=== PATIENT | female | born 1965 | race African-American/Black ===

== ENCOUNTER 2017-02-07 23:50 | Emergency (ER) | payer MEDICARE, OTHER ==
[2017-02-07 23:57] VITALS: RESP 18
--- NOTE | 2017-02-08 01:04 | ED ---
General Adult HPI - General Chief complaint: Dental/Oral Stated complaint: Post Dental Tzhl-Vuebunnz-Yjxystdb PT Time Seen by Provider: 02/08/17 00:37 Source: patient, RN notes reviewed Mode of arrival: ambulatory Limitations: no limitations - History of Present Illness Initial comments: Patient is a 51-year-old female since emergency room for evaluation of dental bleeding. Patient states that she had multiple teeth extracted on Sunday. Patient states that she has not stopped bleeding since. Patient states that she has been on Coumadin since 2004 since she has a defibrillator placed. Patient states that they did not check her INR levels before extracting her teeth. Patient states she had her INR level checked on Sunday and it was 5.5. Patient states she was advised to discontinue the Coumadin until Sunday when they recheck her INR. Patient states she still continuing to bleed. Patient states when she got here the bleeding has slightly subsided. Patient also states that her tongue has turned to green/black color over the past few days. Patient denies any pain in her tongue. Patient has headache, dizziness. Patient denies chest pain shortness of breath. Patient denies fevers, chills, weakness. - Related Data Home Medications Medication Instructions Recorded Confirmed Pravastatin Sodium [Pravachol] 40 mg PO HS 03/25/15 02/07/17 Aspirin EC [Ecotrin] 81 mg PO DAILY 06/27/16 02/07/17 Carvedilol 25 mg PO BID 06/27/16 02/07/17 Isosorbide Dinitrate 30 mg PO DAILY 06/27/16 02/07/17 Loratadine [Claritin] 10 mg PO DAILY 06/27/16 02/07/17 Previous Rx's Medication Instructions Recorded Furosemide [Lasix] 20 mg PO DAILY #30 tab 03/27/15 Lisinopril 40 mg PO DAILY #30 tablet 03/27/15 Spironolactone [Aldactone] 25 mg PO DAILY #30 tab 03/27/15 hydrALAZINE HCL [Apresoline] 25 mg PO BID #60 tab 03/27/15 Warfarin [Coumadin] 10 mg PO DAILY #0 06/30/16 Hydrocodone/Acetaminophen [Valliant 1 each PO Q6HR PRN #20 tab 10/15/16 5-325] Orphenadrine [Norflex] 100 mg PO Q12H #7 tablet.er 10/15/16 predniSONE 20 mg PO BID #10 tab 10/15/16 Allergies Allergy/AdvReac Type Severity Reaction Status Date / Time Penicillins Allergy Anaphylaxis Verified 10/14/16 21:34 shellfish derived [Shellfish] Allergy Anaphylaxis Verified 10/14/16 21:34 Review of Systems ROS Statement: Those systems with pertinent positive or pertinent negative responses have been documented in the HPI. ROS Other: All systems not noted in ROS Statement are negative. Past Medical History Past Medical History: Coronary Artery Disease (CAD), Chest Pain / Angina, Heart Failure, Hyperlipidemia Additional Past Medical History / Comment(s): Recent UTI, nonischemic cardiomyopathy, anemia in past. History of Any Multi-Drug Resistant Organisms: None Reported Past Surgical History: AICD, Cholecystectomy, Pacemaker, Tubal Ligation Additional Past Surgical History / Comment(s): 2006 AICD at [facility], 31/03 mitral valve repair and St. Pb aortic valve replaced Past Anesthesia/Blood Transfusion Reactions: No Reported Reaction Additional Past Anesthesia/Blood Transfusion Reaction / Comment(s): Pt has received blood in past without reaction. Type of Cardiac Device: AICD Device Placement Date:: 2006 Past Psychological History: No Psychological Hx Reported Additional Psychological History / Comment(s): Pt resides with significant other. She does not drive-her significant other takes her to appts. Smoking Status: Former smoker Past Alcohol Use History: None Reported Additional Past Alcohol Use History / Comment(s): Pt started smoking in 1990 and quit 5 1/2 months ago. Past Drug Use History: None Reported - Past Family History Father Family Medical History: Myocardial Infarction ([place]) Additional Family Medical History / Comment(s): Father of a [place] at the age of 60yrs. Mother Family Medical History: CVA/TIA, Seizure Disorder Additional Family Medical History / Comment(s): Mother had a CVA and seizures- had a trach and was comatose for 3 yrs before she . General Exam - General Exam Comments Initial Comments: Sitting in exam room, no acute distress. Limitations: no limitations General appearance: alert, in no apparent distress Head exam: Present: atraumatic, normocephalic, normal inspection Eye exam: Present: normal appearance Expanded Teeth exam: Present: other (Multiple teeth extracted in left upper dental area. Mild bleeding.) Throat exam: normal inspection Neck exam: Present: normal inspection Respiratory exam: Present: normal lung sounds bilaterally. Absent: respiratory distress Cardiovascular Exam: Present: regular rate, normal rhythm, normal heart sounds Extremities exam: Present: normal inspection Back exam: Present: normal inspection Neurological exam: Present: alert, oriented X3, CN II-XII intact, normal gait Psychiatric exam: Present: normal affect, normal mood Skin exam: Present: warm, dry, intact, normal color. Absent: rash Course Vital Signs 02/07/17 02/08/17 02/08/17 23:53 03:14 04:12 Temperature 97.4 F L 98.2 F Pulse Rate 89 81 74 Respiratory 18 18 18 Rate Blood Pressure 106/79 106/70 107/63 O2 Sat by Pulse 98 100 97 Oximetry Medical Decision Making - Medical Decision Making Patient is a 51-year-old female presents to emergency room for evaluation of bleeding from mouth post multiple tooth extractions. Patient's INR today is 5.1. Case discussed with Dr. Lainez who also evaluated patient. Patient given tranexemic acid. Advised patient to follow-up with her primary care provider tomorrow. Patient's bleeding has subsided after gargling with cold water and applying pressure with gauze. Advised patient to return for any worsening symptoms. Patient states she understands everything that was discussed with her. - Lab Data Result diagrams: 02/08/17 01:05 Lab Results 02/08/17 02/08/17 02/08/17 Range/Units 01:05 01:05 02:48 WBC 11.4 H (3.8-10.6) k/uL RBC 4.03 (3.80-5.40) m/uL Hgb 11.4 (11.4-16.0) gm/dL Hct 34.9 (34.0-46.0) % MCV 86.6 (80.0-100.0) fL MCH 28.2 (25.0-35.0) pg MCHC 32.6 (31.0-37.0) g/dL RDW 14.4 (11.5-15.5) % Plt Count 263 (150-450) k/uL Neutrophils % 73 % Lymphocytes % 17 % Monocytes % 5 % Eosinophils % 1 % Basophils % 0 % Neutrophils # 8.4 H (1.3-7.7) k/uL Lymphocytes # 2.0 (1.0-4.8) k/uL Monocytes # 0.6 (0-1.0) k/uL Eosinophils # 0.1 (0-0.7) k/uL Basophils # 0.0 (0-0.2) k/uL PT 50.9 H (9.0-12.0) sec INR 5.1 H* (<1.1) POC Glucose (mg/dL) 95 (75-99) mg/dL POC Glu E [employer] Retailer ID Michelle Min A Disposition Clinical Impression: Postoperative bleeding from mouth, Elevated INR Disposition: HOME SELF-CARE Condition: Good Instructions: Postoperative Bleeding (ED), Elevated INR (ED) Additional Instructions: Gargle with ice cold water. Apply pressure with gauze to affected areas. Please follow up with primary care provider for repeat INR . If any new symptom arises or symptoms worsen, return to ER as soon as possible. Referrals: Lita Olmedo MD [Primary Care Provider] - 1-2 days Time of Disposition: 03:46
[2017-02-08 01:23] LABS: Basophils % (A) 0 %; CH 28.7; CHCM 33.3; Eosinophils # (A) 0.1 k/uL (0-0.7); Eosinophils % (A) 1 %; HCT 34.9 % (34.0-46.0); HDW 2.48; HGB 11.4 gm/dL (11.4-16.0); Luc # (Auto) 0.37; Luc % (Auto) 3; Lymphocytes % (A) 17 %; MCH 28.2 pg (25.0-35.0); MCHC 32.6 g/dL (31.0-37.0); MCV 86.6 fL (80.0-100.0); Mean Platelet Volume 8.1; Monocytes # (A) 0.6 k/uL (0-1.0); Monocytes % (A) 5 %; Neutrophils # (A) 8.4 k/uL (1.3-7.7); Neutrophils % (A) 73 %; RBC 4.03 m/uL (3.80-5.40); RDW 14.4 % (11.5-15.5); WBC 11.4 k/uL (3.8-10.6); WBC (Perox) 12.42
[2017-02-08 01:39] LABS: Prothrombin Time 50.9 sec (9.0-12.0)
[2017-02-08 01:42] LABS: INR 5.1 (<1.1)
[2017-02-08] MEDS ORDERED: TRANEXAMIC ACID 1,000 MG in SODIUM CHLORIDE 0.9% 100 ML IVPB ONE (02:24)
[2017-02-08 02:59] LABS: Glucose,Whole Blood 95 mg/dL (75-99)
[2017-02-08 04:13] VITALS: BP 107/63; PULSE 74; TEMP 98.2
== END 2017-02-08 04:13 | disposition home or self-care (01) ==
LOC: EC 23:50
DX: K91.840 Postprocedural hemorrhage of a digestive system organ or structure following a digestive system procedure (principal); R79.1 Abnormal coagulation profile; I25.10 Atherosclerotic heart disease of native coronary artery without angina pectoris; I42.9 Cardiomyopathy, unspecified; I50.9 Heart failure, unspecified; Z87.891 Personal history of nicotine dependence; Z95.810 Presence of automatic (implantable) cardiac defibrillator; Z95.828 Presence of other vascular implants and grafts; Z88.0 Allergy status to penicillin; Z91.013 Allergy to seafood; Z79.82 Long term (current) use of aspirin; Z79.899 Other long term (current) drug therapy; Z79.01 Long term (current) use of anticoagulants; Z79.52 Long term (current) use of systemic steroids; E78.5 Hyperlipidemia, unspecified; Z82.49 Family history of ischemic heart disease and other diseases of the circulatory system
CPT/HCPCS: 36415; 85025; 85610; 87070; 87205; 96365; 99283

== ENCOUNTER → 2017-04-06 | Outpatient (CLI) | payer MEDICARE ==
[2017-04-06 12:47] LABS: Anion Gap 10 mmol/L; Blood Urea Nitrogen 11 mg/dL (7-17); Calcium 9.4 mg/dL (8.4-10.2); Carbon Dioxide 22 mmol/L (22-30); Chloride 110 mmol/L (98-107); Glucose 99 mg/dL (74-99); Non-African American GFR(MDRD) >60 (>60 ml/min/1.73 sqM); Potassium 4.4 mmol/L (3.5-5.1); Sodium 142 mmol/L (137-145)
== END | disposition home or self-care (01) ==
LOC: LABWHC1 10:31
PROVIDERS: ATTEND Internal Medicine Cardiovascular Disease
DX: I50.9 Heart failure, unspecified (principal)
CPT/HCPCS: 36415; 80048; 83880

== ENCOUNTER 2017-05-01 19:00 | Observation (INO) | payer MEDICARE, OTHER ==
[2017-05-01 19:20] LABS: Glucose,Whole Blood 92 mg/dL (75-99)
[2017-05-01] MEDS ORDERED: NITROGLYCERIN OINT 1 INCH/GM PACKET TOPICAL STA (19:21)
[2017-05-01] MEDS ORDERED: ASPIRIN 81 MG CHEW PO STA (19:21)
[2017-05-01] MEDS ORDERED: SODIUM CHLORIDE 0.9% 1,000 ML IV ONE (19:21)
--- NOTE | 2017-05-01 19:26 | ED ---
General Adult HPI - General Chief complaint: Chest Pain Stated complaint: Dizziness Time Seen by Provider: 05/01/17 19:00 Source: patient, RN notes reviewed Mode of arrival: wheelchair Limitations: no limitations - History of Present Illness Initial comments: This is a 51-year-old female with past medical history significant for valve replacement and defibrillator placement. Patient also states she has had a heart attack in the past. She also states she is hypertensive. Patient comes in today because she started feeling lightheaded and thought she might fall over. Patient stated she also has some swelling to her legs which is been ongoing all day and she was concerned. Patient states she did not have any shortness of breath or difficulty breathing. Patient denies any recent fever chills or cough. Patient states she also had some chest pain earlier in the day in the left side of her chest. The pain did not radiate anywhere. Patient denies any recent abdominal pain. But she does state last evening she was vomiting a few times. Patient denies headache patient denies any numbness weakness. - Related Data Home Medications Medication Instructions Recorded Confirmed Pravastatin Sodium [Pravachol] 40 mg PO HS 03/25/15 05/01/17 Aspirin EC [Ecotrin] 81 mg PO DAILY 06/27/16 05/01/17 Carvedilol 25 mg PO BID 06/27/16 05/01/17 Isosorbide Dinitrate 30 mg PO DAILY 06/27/16 05/01/17 Loratadine [Claritin] 10 mg PO DAILY 06/27/16 05/01/17 Warfarin [Coumadin] 10 mg PO [id number] 05/01/17 05/01/17 Warfarin [Coumadin] 15 mg PO REAZO 05/01/17 05/01/17 Previous Rx's Medication Instructions Recorded Furosemide [Lasix] 20 mg PO DAILY #30 tab 03/27/15 Lisinopril 40 mg PO DAILY #30 tablet 03/27/15 Spironolactone [Aldactone] 25 mg PO DAILY #30 tab 03/27/15 hydrALAZINE HCL [Apresoline] 25 mg PO BID #60 tab 03/27/15 Allergies Allergy/AdvReac Type Severity Reaction Status Date / Time Penicillins Allergy Anaphylaxis Verified 05/01/17 19:33 shellfish derived [Shellfish] Allergy Anaphylaxis Verified 05/01/17 19:33 Review of Systems ROS Statement: Those systems with pertinent positive or pertinent negative responses have been documented in the HPI. ROS Other: All systems not noted in ROS Statement are negative. Past Medical History Past Medical History: Coronary Artery Disease (CAD), Chest Pain / Angina, Heart Failure, Hyperlipidemia Additional Past Medical History / Comment(s): Recent UTI, nonischemic cardiomyopathy, anemia in past. History of Any Multi-Drug Resistant Organisms: None Reported Past Surgical History: AICD, Cholecystectomy, Pacemaker, Tubal Ligation Additional Past Surgical History / Comment(s): 2006 AICD at [facility], 31/03 mitral valve repair and St. Pb aortic valve replaced Past Anesthesia/Blood Transfusion Reactions: No Reported Reaction Additional Past Anesthesia/Blood Transfusion Reaction / Comment(s): Pt has received blood in past without reaction. Type of Cardiac Device: AICD Device Placement Date:: 2006 Past Psychological History: No Psychological Hx Reported Additional Psychological History / Comment(s): Pt resides with significant other. She does not drive-her significant other takes her to appts. Smoking Status: Former smoker Past Alcohol Use History: None Reported Additional Past Alcohol Use History / Comment(s): Pt started smoking in 1990 and quit 5 1/2 months ago. Past Drug Use History: None Reported - Past Family History Father Family Medical History: Myocardial Infarction ([place]) Additional Family Medical History / Comment(s): Father of a [place] at the age of 60yrs. Mother Family Medical History: CVA/TIA, Seizure Disorder Additional Family Medical History / Comment(s): Mother had a CVA and seizures- had a trach and was comatose for 3 yrs before she . General Exam - General Exam Comments Initial Comments: GENERAL: Patient is well-developed and well-nourished. Patient is nontoxic and well- hydrated and is in no acute distress. ENT: Neck is soft and supple. No significant lymphadenopathy is noted. Oropharynx is clear. Moist mucous membranes. Neck has full range of motion without eliciting any pain. EYES: The sclera were anicteric and conjunctiva were pink and moist. Extraocular movements were intact and pupils were equal round and reactive to light. Eyelids were unremarkable. PULMONARY: Unlabored respirations. Good breath sounds bilaterally. No audible rales rhonchi or wheezing was noted. CARDIOVASCULAR: There is a regular rate and rhythm without any murmurs gallops or rubs. ABDOMEN: Soft and nontender with normal bowel sounds. No palpable organomegaly was noted. There is no palpable pulsatile mass. SKIN: Skin is clear with no lesions or rashes and otherwise unremarkable. NEUROLOGIC: Patient is alert and oriented x3. Cranial nerves II through XII are grossly intact. Motor and sensory are also intact. Normal speech, volume and content. Symmetrical smile. MUSCULOSKELETAL: Normal extremities with adequate strength and full range of motion. No lower extremity swelling or edema. No calf tenderness. LYMPHATICS: No significant lymphadenopathy is noted PSYCHIATRIC: Normal psychiatric evaluation. Normal interpersonal interactions appears functionally intact in deals appropriately with others. No signs of depression. No signs of anxiety. Limitations: no limitations Course Vital Signs 05/01/17 05/01/17 05/01/17 19:04 19:20 19:57 Temperature 98.5 F Pulse Rate 76 73 Pulse Rate [ 70 Sitting] Pulse Rate [ 82 Standing] Pulse Rate [ 68 Supine] Respiratory 18 18 Rate Blood Pressure 121/74 115/76 Blood Pressure 103/65 [Sitting] Blood Pressure 106/74 [Standing] Blood Pressure 117/70 [Supine] O2 Sat by Pulse 98 99 Oximetry 05/01/17 20:02 Temperature Pulse Rate 71 Pulse Rate [ Sitting] Pulse Rate [ Standing] Pulse Rate [ Supine] Respiratory 18 Rate Blood Pressure 106/67 Blood Pressure [Sitting] Blood Pressure [Standing] Blood Pressure [Supine] O2 Sat by Pulse 98 Oximetry Medical Decision Making - Medical Decision Making EKG shows sinus rhythm with occasional PVCs and PACs. The rate is 77 bpm DC interval is 150 QRS is 122 QT interval is 410 QTC is 463. Patient's EKG shows no ST segment elevation or depression. Patient has a left bundle branch block. Chest x-ray shows no acute abnormality. Patient was not having any chest pain throughout the course of her ED stay - Lab Data Result diagrams: 05/01/17 19:25 05/01/17 19:25 Lab Results 05/01/17 05/01/17 05/01/17 Range/Units :17 19:25 19:25 WBC 7.9 (3.8-10.6) k/uL RBC 4.19 (3.80-5.40) m/uL Hgb 11.7 (11.4-16.0) gm/dL Hct 36.4 (34.0-46.0) % MCV 86.9 (80.0-100.0) fL MCH 27.9 (25.0-35.0) pg MCHC 32.1 (31.0-37.0) g/dL RDW 14.7 (11.5-15.5) % Plt Count 229 (150-450) k/uL Neutrophils % 65 % Lymphocytes % 24 % Monocytes % 6 % Eosinophils % 2 % Basophils % 0 % Neutrophils # 5.1 (1.3-7.7) k/uL Lymphocytes # 1.9 (1.0-4.8) k/uL Monocytes # 0.5 (0-1.0) k/uL Eosinophils # 0.1 (0-0.7) k/uL Basophils # 0.0 (0-0.2) k/uL PT (9.0-12.0) sec INR (<1.1) APTT (22.0-30.0) sec Sodium (137-145) mmol/L Potassium (3.5-5.1) mmol/L Chloride (98-107) mmol/L Carbon Dioxide (22-30) mmol/L Anion Gap mmol/L BUN (7-17) mg/dL Creatinine (0.52-1.04) mg/dL Est GFR (MDRD) Af Amer (>60 ml/min/1.73 sqM) Est GFR (MDRD) Non-Af (>60 ml/min/1.73 sqM) Glucose (74-99) mg/dL POC Glucose (mg/dL) 92 (75-99) mg/dL POC Glu Resource Forester ID Bowling, Darling Calcium (8.4-10.2) mg/dL Magnesium (1.6-2.3) mg/dL Total Bilirubin (0.2-1.3) mg/dL AST (14-36) U/L ALT (9-52) U/L Alkaline Phosphatase (38-126) U/L Total Creatine Kinase 217 H (30-135) U/L CK-MB (CK-2) 0.9 (0.0-2.4) ng/mL CK-MB (CK-2) Rel Index 0.4 Troponin I <0.012 (0.000-0.034) ng/mL NT-Pro-B Natriuret Pep pg/mL Total Protein (6.3-8.2) g/dL Albumin (3.5-5.0) g/dL 05/01/17 05/01/17 05/01/17 Range/Units 19:25 19:25 19:25 WBC (3.8-10.6) k/uL RBC (3.80-5.40) m/uL Hgb (11.4-16.0) gm/dL Hct (34.0-46.0) % MCV (80.0-100.0) fL MCH (25.0-35.0) pg MCHC (31.0-37.0) g/dL RDW (11.5-15.5) % Plt Count (150-450) k/uL Neutrophils % % Lymphocytes % % Monocytes % % Eosinophils % % Basophils % % Neutrophils # (1.3-7.7) k/uL Lymphocytes # (1.0-4.8) k/uL Monocytes # (0-1.0) k/uL Eosinophils # (0-0.7) k/uL Basophils # (0-0.2) k/uL PT 30.5 H (9.0-12.0) sec INR 3.1 (<1.1) APTT 39.1 H (22.0-30.0) sec Sodium 142 (137-145) mmol/L Potassium 3.7 (3.5-5.1) mmol/L Chloride 110 H (98-107) mmol/L Carbon Dioxide 26 (22-30) mmol/L Anion Gap 6 mmol/L BUN 9 (7-17) mg/dL Creatinine 0.90 (0.52-1.04) mg/dL Est GFR (MDRD) Af Amer >60 (>60 ml/min/1.73 sqM) Est GFR (MDRD) Non-Af >60 (>60 ml/min/1.73 sqM) Glucose 90 (74-99) mg/dL POC Glucose (mg/dL) (75-99) mg/dL POC Glu Resource Forester ID Calcium 8.6 (8.4-10.2) mg/dL Magnesium 1.7 (1.6-2.3) mg/dL Total Bilirubin 0.3 (0.2-1.3) mg/dL AST 17 (14-36) U/L ALT 21 (9-52) U/L Alkaline Phosphatase 65 (38-126) U/L Total Creatine Kinase (30-135) U/L CK-MB (CK-2) (0.0-2.4) ng/mL CK-MB (CK-2) Rel Index Troponin I (0.000-0.034) ng/mL NT-Pro-B Natriuret Pep 455 pg/mL Total Protein 6.3 (6.3-8.2) g/dL Albumin 3.5 (3.5-5.0) g/dL Disposition Clinical Impression: Chest pain Disposition: ADMITTED IP TO THIS HOSP Referrals: Lita Olmedo MD [Primary Care Provider] - 1-2 days Time of Disposition: 20:39
[2017-05-01 19:44] LABS: Basophils % (A) 0 %; CH 27.9; CHCM 32.3; Eosinophils # (A) 0.1 k/uL (0-0.7); Eosinophils % (A) 2 %; HCT 36.4 % (34.0-46.0); HDW 2.32; HGB 11.7 gm/dL (11.4-16.0); Luc # (Auto) 0.22; Luc % (Auto) 3; Lymphocytes # (A) 1.9 k/uL (1.0-4.8); Lymphocytes % (A) 24 %; MCH 27.9 pg (25.0-35.0); MCHC 32.1 g/dL (31.0-37.0); MCV 86.9 fL (80.0-100.0); Mean Platelet Volume 7.7; Monocytes # (A) 0.5 k/uL (0-1.0); Monocytes % (A) 6 %; Neutrophils # (A) 5.1 k/uL (1.3-7.7); Neutrophils % (A) 65 %; RBC 4.19 m/uL (3.80-5.40); RDW 14.7 % (11.5-15.5); WBC 7.9 k/uL (3.8-10.6); WBC (Perox) 8.12
--- NOTE | 2017-05-01 20:00 | XR ---
EXAMINATION TYPE: XR chest 2V DATE OF EXAM: 05/01/2017 COMPARISON: 10/14/2016 HISTORY: Chest pain TECHNIQUE: Frontal and lateral views of the chest are obtained. FINDINGS: Heart is enlarged. There is no gross heart failure. Lungs are clear of consolidation. Ther e are sternal wires. There is a left axillary pacemaker with the lead tip in the right ventricle. The re is no pleural effusion. IMPRESSION: Cardiomegaly. No active cardiopulmonary disease. No change.
[2017-05-01 20:03] LABS: ALT 21 U/L (9-52); AST 17 U/L (14-36); Alkaline Phosphatase 65 U/L (38-126); Anion Gap 6 mmol/L; Blood Urea Nitrogen 9 mg/dL (7-17); Calcium 8.6 mg/dL (8.4-10.2); Carbon Dioxide 26 mmol/L (22-30); Chloride 110 mmol/L (98-107); Glucose 90 mg/dL (74-99); Magnesium 1.7 mg/dL (1.6-2.3); Non-African American GFR(MDRD) >60 (>60 ml/min/1.73 sqM); Potassium 3.7 mmol/L (3.5-5.1); Sodium 142 mmol/L (137-145); Total Bilirubin 0.3 mg/dL (0.2-1.3); Total Protein 6.3 g/dL (6.3-8.2)
[2017-05-01 20:07] LABS: INR 3.1 (<1.1); Partial Thromboplastin Time 39.1 sec (22.0-30.0); Prothrombin Time 30.5 sec (9.0-12.0)
[2017-05-01 20:11] LABS: Creatine Kinase 217 U/L (30-135)
[2017-05-01 20:22] LABS: Creatine Kinase MB 0.9 ng/mL (0.0-2.4); Troponin I <0.012 ng/mL (0.000-0.034)
[2017-05-01] MEDS ORDERED: NITROGLYCERIN SL TABS 0.4 MG TAB SUBLINGUAL PRN (20:39)
[2017-05-01 21:39] VITALS: BMI 45.8
[2017-05-02 02:11] LABS: Creatine Kinase MB 0.9 ng/mL (0.0-2.4); Troponin I 0.013 ng/mL (0.000-0.034)
[2017-05-02] MEDS: NITROGLYCERIN OINT 1 INCH/GM PACKET TOPICAL SCH ×2 (02:40→05:42)
[2017-05-02 08:41] LABS: Cholesterol 129 mg/dL (<200); Triglycerides 64 mg/dL (<150)
[2017-05-02 09:12] LABS: Creatine Kinase MB 1.1 ng/mL (0.0-2.4)
[2017-05-02 09:15] LABS: Troponin I 0.098 ng/mL (0.000-0.034)
[2017-05-02] MEDS: SPIRONOLACTONE 25 MG TAB PO SCH (09:49)
[2017-05-02] MEDS: CARVEDILOL 12.5 MG TAB PO SCH ×2 (09:49→18:05)
[2017-05-02] MEDS: LORATADINE 10 MG TAB PO SCH (09:49)
[2017-05-02] MEDS: FUROSEMIDE 40 MG TAB PO SCH (09:49)
[2017-05-02] MEDS: LISINOPRIL 20 MG TAB PO SCH (09:50)
[2017-05-02] MEDS: hydrALAZINE HCL 25 MG TAB PO SCH ×2 (09:50→21:08)
[2017-05-02] MEDS: ASPIRIN 325 MG TAB PO SCH (09:50)
--- NOTE | 2017-05-02 10:46 | CONS ---
DATE OF CONSULTATION: Mrs. Walker is a 51-year-old female who is followed by Dr. De Los Santos on a regular basis, has a known history of aortic valve replacement with nonischemic cardiomyopathy and ICD implantation. She presented with symptoms of edema on the lower extremities with feeling tired. Minimal dyspnea and had warm feeling over the defibrillator side, but no discharge. She had an echocardiogram according to her a couple of months ago at Dr. De Los Santos's office and was told that there is no acute change. She has a known history of severe nonischemic cardiomyopathy. She has no history of obstructive coronary artery disease and had no significant chest pain. She has history of chronic tubular orthopnea. No recent PND. No palpitation. No syncope. She had no discharge from the device. Her generator was exchanged last year. Her coronary risk factors are remarkable for history of hypertension, hyperlipidemia, she is a nonsmoker, nondiabetic. Her medications include aspirin, Coreg 25 mg twice a day, Lasix 20 mg daily, isosorbide dinitrate 30 mg daily, lisinopril 40 mg daily, pravastatin 40 mg daily, Aldactone 25 mg daily, Coumadin and hydralazine 25 mg twice a day. REVIEW OF SYSTEMS: RESPIRATORY SYSTEM: She has no recent wheezing. She has occasional cough. GI SYSTEM: No recent GI bleeding. No peptic ulcer disease. SYSTEM: No dysuria or hematuria. NERVOUS SYSTEM: No stroke or seizure. PAST SURGICAL HISTORY: Remarkable for the aortic valve replacement and the ICD implantation with generator change. PHYSICAL EXAMINATION: A 51-year-old female, alert, oriented, in no apparent distress. Blood pressure 100/59 with a heart rate in the 60s. HEAD: Normocephalic. EYES: Sclerae nonicteric. NECK: Good upstroke. No bruit. LUNGS: Clear to auscultation. HEART: Regular rate and rhythm. S1, S2 with prosthetic aortic sound and a systolic murmur. No diastolic murmur. ABDOMEN: Soft, nontender, obese. Positive bowel sounds. No organomegaly. EXTREMITIES: Trace edema on the left side. According to the patient, her edema is much better. Admission lab data revealed troponin less than 0.012 and 0.013. BUN and creatinine 9 and 0.9. Potassium 3.7. INR of 3.1. Hemoglobin of 11.7. EKG revealed a sinus mechanism, rate of 77, poor R-wave progression, incomplete left bundle branch block with rare PVCs. Chest x-ray shows no acute infiltrate. Her BNP is 455. IMPRESSION: 1. Symptoms of peripheral edema, improved. Could represent mild fluid overload in a patient with known history of nonischemic cardiomyopathy. At this time she has no overt signs of congestive heart failure. Her NT-proBNP is within normal range for her age group. 2. History of aortic valve replacement with a St. Pb's valve. 3. History of nonischemic cardiomyopathy. 4. Status post implantable cardioverter-defibrillator implantation. 5. History of hypertension. RECOMMENDATION: From the cardiac standpoint, I will increase the dose of her Lasix, increase her level of activity. I will try to obtain the results of her echocardiogram obtained recently. If there is no abnormality, then I would expect the patient should be able to be discharged home today and follow up as an outpatient with Dr. Reshma De Los Santos. Thank you for this consult. Will follow with you.
[2017-05-02 10:53] LABS: HDL Cholesterol 38 mg/dL (40-60)
--- NOTE | 2017-05-02 12:53 | ECHOF ---
Referral Reason:cm MEASUREMENTS -------- HEIGHT: 175.3 cm WEIGHT: 140.6 kg BP: 106/57 IVSd: 1.1 cm (0.6 - 1.1) LVIDd: 5.7 cm (3.9 - 5.3) LVPWd: 1.1 cm (0.6 - 1.1) IVSs: 1.2 cm LVIDs: 5.5 cm LVPWs: 1.0 cm Ao Diam: 3.4 cm (2.0 - 3.7) AV Cusp: 1.8 cm (1.5 - 2.6) LA Diam: 3.8 cm (2.7 - 3.8) MV E Jhoan: 1.39 m/s MV DecT: 308 ms MV A Jhoan: 1.15 m/s MV E/A Ratio: 1.22 RAP: 15.00 mmHg RVSP: 37.27 mmHg FINDINGS -------- Sinus rhythm. AICD This was a technically good study. The left ventricle is mildly dilated. There is severe global hypokinesis of LV . Overall left ventricular systolic function is severely impaired with, an EF between 20 - 25 %. Known cardiomyopathy The right ventricle is normal in size and function. The left atrium is normal in size. The right atrium is normal in size. Aortic valve is trileaflet and is mildly thickened. The mitral valve leaflets are moderately thickened. Moderate mitral annular calcification present. Mild mitral regurgitation is present. The peak and mean MV gradients are 9.88mmHg 3.04mmHg as measured by doppler. Mild tricuspid regurgitation present. There is mild pulmonary hypertension. The right ventricular systolic pressure, as measured by Doppler, is 37.27mmHg. Pulmonic valve appears structurally normal. The aortic root size is normal. The inferior vena cava is mildly dilated. The pericardium is normal. CONCLUSIONS -------- 1. Sinus rhythm. 2. The right atrium is normal in size. 3. Aortic valve is trileaflet and is mildly thickened. 4. The mitral valve leaflets are moderately thickened. 5. Moderate mitral annular calcification present. 6. Mild mitral regurgitation is present. 7. The peak and mean MV gradients are 9.88mmHg 3.04mmHg as measured by doppler. 8. Mild tricuspid regurgitation present. 9. There is mild pulmonary hypertension. 10. The right ventricular systolic pressure, as measured by Doppler, is 37.27mmHg. 11. Pulmonic valve appears structurally normal. 12. AICD 13. The aortic root size is normal. 14. The inferior vena cava is mildly dilated. 15. The pericardium is normal. 16. This was a technically good study. 17. The left ventricle is mildly dilated. 18. There is severe global hypokinesis of LV . 19. Overall left ventricular systolic function is severely impaired with, an EF between 20 - 25 %. 20. Known cardiomyopathy 21. The right ventricle is normal in size and function. 22. The left atrium is normal in size. CASHIER ASSISTANT: Tasneem Underwood RDCS
[2017-05-02] MEDS: ISOSORBIDE MONONITRATE ER 30 MG TAB.ER.24H PO SCH (17:26)
[2017-05-02] MEDS ORDERED: WARFARIN 10 MG TAB PO SCH (18:00)
--- NOTE | 2017-05-02 19:14 | HP ---
DATE OF ADMISSION: 05/01/2017 PRESENTING COMPLAINT: Short of breath. HISTORY OF PRESENTING COMPLAINT: This is a pleasant 51-year-old patient of Dr. Manuel Olmedo. Chronic stable medical conditions include AICD, hypertension, hyperlipidemia, obesity. The patient's for five days having increasing amount of shortness of breath, some orthopnea and edema. Was found to be in CHF. Given IV Lasix to which she is feeling better. Denies any chest pain. REVIEW OF SYSTEMS: CONSTITUTIONAL: Weak, tired. HEENT: None. RESPIRATORY: As above. CARDIOVASCULAR: As above. GASTROINTESTINAL: None. GENITOURINARY: None. MUSCULOSKELETAL: None. Dermatologic: None. HEMATOLOGIC: None. PSYCHIATRY: None. NEUROLOGICAL: None. PAST HISTORY: AICD, nonsustained V. tach. CHF. Aortic and mitral valve repair, hypertension, hyperlipidemia, obesity, DVT. PAST SURGICAL HISTORY: AICD, cholecystectomy, pacemaker in 2006 at [facility] and [address] Pb aortic valve replaced. SOCIAL HISTORY: The patient lives with significant other. Smoked for 25 years; quit five and one months ago. FAMILY HISTORY: Father had a heart attack age of 60. Home medication: 1. Imdur ER 30 mg a day. 2. Hydralazine 25 mg b.i.d. 3. Coumadin 10 mg Sunday, Sunday, Sunday, , Sunday, Sunday and 50 mg Sunday. 4. Aldactone 25 mg daily. 5. Pravachol 40 mg q.h.s. 6. Claritin 10 mg p.o. daily. 7. Lisinopril 40 mg p.o. daily. 8. Lasix 20 mg p.o. daily. 9. Coreg 25 mg p.o. b.i.d. 10. Aspirin 81 mg p.o. daily. ALLERGIES TO PENICILLIN, SHELLFISH. PHYSICAL EXAMINATION: Vital signs on presentation: Temperature 98.5, pulse 76, respiration 18, blood pressure 120/74, pulse ox 98% on room air. GENERAL APPEARANCE: Well built, BMI of 45%. Sitting up, tired -appearing. EYES: Pupils equal. Conjunctivae normal. Oral cavity normal. NECK: JVD not raised. Mass not palpable. RESPIRATORY: Effort increased. LUNGS: Some basal crackles. CARDIOVASCULAR: First and second sounds normal. Edema present. ABDOMEN: Soft. Liver and spleen not palpable. LYMPHATIC: No lymph nodes palpable in neck or axillae. PSYCHIATRY: Alert and oriented x3. Mood and affect normal. NEUROLOGICAL: Pupils equal. Cranial nerves grossly intact. Power and sensation grossly intact. INVESTIGATIONS: White count 7.9, hemoglobin 11.9, potassium 3.7, BUN and creatinine are normal. Troponin less than 0.012, 0.013, 0.098. EKG shows a left bundle brunch block. Chest x-ray cardiomegaly. ASSESSMENT: 1. Possible exacerbation nonischemic cardiomyopathy; consider some right sided failure. ProBNP is only for 455. 2. Troponin leak. 3. Coumadin monitoring. 4. AICD in place. 5. Essential hypertension. 6. Hyperlipidemia. 7. Chronic deep venous thrombosis with Coumadin in place. 8. Morbid obesity, body mass index of 45.9. PLAN: Patient did receive some Lasix. Patient's 2-D echocardiogram showing EF of 20 to 25%. Cardiology was consulted.
[2017-05-02] MEDS ORDERED: PRAVASTATIN SODIUM 40 MG TAB PO SCH (21:00)
[2017-05-03] MEDS: CARVEDILOL 12.5 MG TAB PO SCH (06:34)
[2017-05-03] MEDS: hydrALAZINE HCL 25 MG TAB PO SCH (10:07)
[2017-05-03] MEDS: ASPIRIN 325 MG TAB PO SCH (10:07)
[2017-05-03] MEDS: FUROSEMIDE 40 MG TAB PO SCH (10:07)
[2017-05-03] MEDS: ISOSORBIDE MONONITRATE ER 30 MG TAB.ER.24H PO SCH (10:07)
[2017-05-03] MEDS: LORATADINE 10 MG TAB PO SCH (10:07)
[2017-05-03] MEDS: SPIRONOLACTONE 25 MG TAB PO SCH (10:07)
[2017-05-03] MEDS: LISINOPRIL 20 MG TAB PO SCH (10:09)
[2017-05-03 10:38] VITALS: RESP 18
[2017-05-03] MEDS ORDERED: LISINOPRIL 20 MG TAB PO SCH (12:00)
[2017-05-03 14:43] VITALS: BP 125/85; PULSE 64; TEMP 97.1
--- NOTE | 2017-05-03 15:05 | P.PN ---
Subjective Principal diagnosis: Peripheral edema This is a 51-year-old -[place] female who follows regularly with in the office. Patient has a history of nonischemic cardiomyopathy, hypertension, hyperlipidemia, she is a nonsmoker and nondiabetic. She also has history of aortic valve replacement and prior AICD implantation. She primarily was admitted to the hospital with symptoms of worsening of peripheral edema. Patient was seen and examined this morning, is quite eager to be discharged home today. Blood pressure 125/80 with a heart rate in the 60s. She is 97% on room air. CBC normal. INR 3.1. Potassium 3.7 today. BUN 9, creatinine 0.9. Troponins 0.012, 0.013, 0.098. Echocardiogram with Doppler study was performed which revealed an ejection fraction of 20-25%. Objective - Vital Signs Vital signs: Vital Signs Temp 97.1 F L 05/03/17 12:00 Pulse 64 05/03/17 12:00 Resp 18 05/03/17 12:00 BP 125/85 05/03/17 12:00 Pulse Ox 97 05/03/17 12:00 Intake & Output 05/02/17 05/03/17 05/03/17 18:59 06:59 18:59 Intake Total 356 0 180 Balance 356 0 180 Weight 141 kg 137.5 kg Intake: IV 0 0 NS 0 0 Oral 356 180 Other: Voiding Method Toilet Toilet # Voids 4 - Exam PHYSICAL EXAMINATION: HEENT: Head is atraumatic, normocephalic. Pupils equal, round. Neck is supple. There is no elevated jugular venous pressure. HEART EXAMINATION: Heart S1 and S2 prosthetic valve sounds heard as well as a systolic murmur. CHEST EXAMINATION: Lungs are clear to auscultation and precussion. No chest wall tenderness is noted on palpation or with deep breathing. ABDOMEN: Soft, obese, nontender. Bowel sounds are heard. No organomegaly noted. EXTREMITIES: 2+ peripheral pulses with evidence of peripheral edema and no calf tenderness noted. NEUROLOGIC patient is awake, alert and oriented -3. . - Labs CBC & Chem 7: 05/01/17 19:25 05/01/17 19:25 Assessment and Plan (1) Peripheral edema Status: Acute (2) NICM (nonischemic cardiomyopathy) Status: Acute (3) NICM (nonischemic cardiomyopathy) Status: Acute (4) Peripheral edema Status: Acute (5) AICD (automatic cardioverter/defibrillator) present Status: Acute (6) Elevated troponin I level Status: Acute (7) HTN (hypertension) Status: Acute (8) Hx of aortic valve replacement Status: Acute (9) Hyperlipemia Status: Acute Plan: Patient may be able to be discharged home today from cardiology's perspective. We'll make her a follow-up appointment to see Dr. VC De Los Santos in the office post discharge. We will continue her current medications. DNP note has been reviewed, I agree with a documented findings and plan of care. Patient was seen and examined.
--- NOTE | 2017-05-04 09:48 | DS ---
DATE OF ADMISSION: 05/01/2017 DATE OF DISCHARGE: 05/03/2017 FINAL DIAGNOSES: 1. Acute bilateral lower extremity swelling, probably from exposed to severe heat. 2. Troponin leak. 3. Coumadin monitoring. 4. AICD in place. 5. Essential hypertension. 6. Hyperlipidemia. 7. Chronic deep venous thrombosis with Coumadin in place. 8. Morbid obesity, body mass index of 45.9. 9. Acute chronic obstructive pulmonary disease exacerbation, possibly in a patient who is an ex-smoker. 10. Nonischemic cardiomyopathy; ejection fraction 20% to 25%. HOSPITAL COURSE: This patient presented with some shortness of breath, could be COPD exacerbation. Additionally had swelling in the lower extremities and the fact that patient's ProBNP was only ( ) and patient had been out in extreme heat. This could explain patient's venous insufficiency. Nevertheless, the patient is doing much better by the time of discharge. ON EXAMINATION: LUNGS: Decreased breath sounds. Decreased edema. CONSULTATION: Dr. Youngblood from cardiology. Patient's 2-D echocardiogram showed EF of 25%. DISCHARGE MEDICATIONS: 1. Pravachol 40 mg q.h.s. 2. Lisinopril 40 mg a day. 3. Aldactone 25 mg a day. 4. Hydralazine 25 mg b.i.d. 5. Aspirin 81 mg p.o. daily. 6. Claritin 10 mg p.o. daily. 7. Coumadin 10 mg Sunday, Sunday, Sunday, , Sunday, Sunday and 15 mg on Sunday. 8. Imdur ER 30 mg a day. 9. Coreg 25 mg p.o. b.i.d. 10. Lasix 40 mg p.o. daily. 11. Nitrostat 0.4 sublingual q.5 p.r.n. Follow up with Dr. Olmedo in 1 to 2 days; Dr. Reshma De Los Santos on 05/10/17. BMP in 3 to 5 days. Care was discussed with the patient and at the bedside.
[2017-05-06] MEDS ORDERED: WARFARIN 10 MG TAB PO SCH (18:00)
== END 2017-05-03 15:20 | disposition home or self-care (01) ==
LOC: EC 19:00 → 3OBS 20:39 → 6SEL 05-02 10:17
PROVIDERS: ADMIT Hospitalist; ATTEND Hospitalist
DX: M79.89 Other specified soft tissue disorders (principal); R06.02 Shortness of breath; R42 Dizziness and giddiness; R07.9 Chest pain, unspecified; R11.10 Vomiting, unspecified; I25.2 Old myocardial infarction; I11.0 Hypertensive heart disease with heart failure; E78.5 Hyperlipidemia, unspecified; E66.01 Morbid (severe) obesity due to excess calories; Z68.42 Body mass index [BMI] 45.0-49.9, adult; I42.9 Cardiomyopathy, unspecified; I44.7 Left bundle-branch block, unspecified; R74.8 Abnormal levels of other serum enzymes; I82.509 Chronic embolism and thrombosis of unspecified deep veins of unspecified lower extremity; I25.10 Atherosclerotic heart disease of native coronary artery without angina pectoris; Z79.899 Other long term (current) drug therapy; Z79.01 Long term (current) use of anticoagulants; Z79.82 Long term (current) use of aspirin; Z88.0 Allergy status to penicillin; Z91.013 Allergy to seafood; Z95.810 Presence of automatic (implantable) cardiac defibrillator; Z95.2 Presence of prosthetic heart valve; Z87.891 Personal history of nicotine dependence
CPT/HCPCS: 36415; 93005; 93306; 83880; 80061; 80053; 82550 ×2; 82553 ×2; 83735; 84484 ×2; 85025; 85610; 85730; 71020; 99285; G0378 ×3

== ENCOUNTER 2017-11-13 11:09 | Emergency (ER) | payer MEDICARE, OTHER ==
[2017-11-13 11:21] VITALS: TEMP 97.8
[2017-11-13] MEDS ORDERED: HYDROcodone/APAP 5-325MG 1 EACH TAB PO STA (11:40)
--- NOTE | 2017-11-13 11:45 | ED ---
General Adult HPI - General Chief complaint: Headache Stated complaint: Rt side of head/ear/neck pain Time Seen by Provider: 11/13/17 11:29 Source: patient, RN notes reviewed, old records reviewed Mode of arrival: ambulatory Limitations: no limitations - History of Present Illness Initial comments: Chief complaint history of present illness this is a 52-year-old to complaint of discomfort to her trapezius muscle. It starts on her right holiness area goes down her neck to the top of her right shoulder. The patient reports she awakened with this. She states she thinks may have slept wrong. This been ongoing for 3 days. Pain increases when she looks to the right decreases when she looks to the left. The patient took Motrin at home without relief. - Related Data Home Medications Medication Instructions Recorded Confirmed Pravastatin Sodium [Pravachol] 40 mg PO HS 03/25/15 11/13/17 Aspirin EC [Ecotrin Low Dose] 81 mg PO DAILY 06/27/16 11/13/17 Loratadine [Claritin] 10 mg PO DAILY 06/27/16 11/13/17 Warfarin [Coumadin] 10 mg PO [id number] 05/01/17 11/13/17 Warfarin [Coumadin] 15 mg PO ERAZO 05/01/17 11/13/17 Isosorbide Mononitrate ER [Imdur] 30 mg PO DAILY 05/02/17 11/13/17 HYDROcodone/APAP 7.5-325MG [[place] 1 tab PO TID PRN 11/13/17 11/13/17 7.5-325] hydrALAZINE HCL [Apresoline] 25 mg PO TID 11/13/17 11/13/17 Previous Rx's Medication Instructions Recorded Lisinopril 40 mg PO DAILY #30 tablet 03/27/15 Spironolactone [Aldactone] 25 mg PO DAILY #30 tab 03/27/15 Carvedilol [Coreg*] 25 mg PO BID-W/MEALS #60 tab 05/03/17 Nitroglycerin Sl Tabs [Nitrostat] 0.4 mg SUBLINGUAL Q5M PRN #30 tab 05/03/17 Diazepam [Valium] 2 mg PO BID #4 tab 11/13/17 Hydrocodone/Acetaminophen [[place] 1 each PO Q6HR PRN #10 tab 11/13/17 5-325] Allergies Allergy/AdvReac Type Severity Reaction Status Date / Time Penicillins Allergy Anaphylaxis Verified 11/13/17 11:30 shellfish derived [Shellfish] Allergy Anaphylaxis Verified 11/13/17 11:30 Review of Systems ROS Statement: Those systems with pertinent positive or pertinent negative responses have been documented in the HPI. Review of systems patient reports she has discomfort to her right holiness area. Increases when she looks to the right. No visual acuity changes she has discomfort and pain with palpation of the trapezius muscle on the right side of the neck into the top of the shoulder. Denies chest pain shortness breath, denies abdominal pain denies any neuro deficits. No numbness or tingling down her right arm. All systems are reviewed. Past medical problem significant for previous GA, CHF, GERD, hyperlipidemia, syncopal episodes and occasional UTIs. The patient has an AICD/pacemaker in place, tubal ligation and cholecystectomy. Family history Brother had colon cancer mother had skin cancer. Patient has ALLERGIES to shellfish and penicillin. She denies smoking denies drinking. ROS Other: All systems not noted in ROS Statement are negative. Past Medical History Past Medical History: Coronary Artery Disease (CAD), Chest Pain / Angina, Heart Failure, GERD/Reflux, Hyperlipidemia, Myocardial Infarction (GA), Syncope Additional Past Medical History / Comment(s): Recent UTI, nonischemic cardiomyopathy, anemia in past, DVT Last Myocardial Infarction Date:: 2007 History of Any Multi-Drug Resistant Organisms: None Reported Past Surgical History: AICD, Cholecystectomy, Pacemaker, Tubal Ligation Additional Past Surgical History / Comment(s): 2007 AICD at [facility], 31/03 mitral valve repair and St. Pb aortic valve replaced Past Anesthesia/Blood Transfusion Reactions: No Reported Reaction Additional Past Anesthesia/Blood Transfusion Reaction / Comment(s): Pt has received blood in past without reaction. Type of Cardiac Device: AICD Device Placement Date:: 2006 Past Psychological History: No Psychological Hx Reported Smoking Status: Current some day smoker Past Alcohol Use History: None Reported Past Drug Use History: None Reported - Past Family History Father Family Medical History: Myocardial Infarction (GA) Additional Family Medical History / Comment(s): Father of a GA at the age of 60yrs. Mother Family Medical History: CVA/TIA, Seizure Disorder Additional Family Medical History / Comment(s): Mother had a CVA and seizures- had a trach and was comatose for 3 yrs before she . General Exam - General Exam Comments Initial Comments: General: The patient is awake and alert, patient is found with her head looking to the left. Looking to the right increases pain to the right trapezius muscle. Vital signs temperature 97.8 pulse 78 respiratory rate 20 pulse ox 98% room air blood pressure 126/85. Eye: Pupils are equal, round and reactive to light, extra-ocular movements are intact ; there is normal conjunctiva bilaterally. No signs of icterus. Ears, nose, mouth and throat: There are moist mucous membranes and no oral lesions. Neck: Gage has muscle spasms to the right trapezius muscle. Increases with palpation of the same muscle, increases with looking to the right. Pain is lessened and decreased to being nonexistent when she turns her head fully to the left. No carotid bruit. Cardiovascular: There is a regular rate and rhythm. No murmur, rub or gallop is appreciated. Respiratory: Lungs are clear to auscultation, respirations are non-labored, breath sounds are equal. No wheezes, stridor, rales, or rhonchi. Gastrointestinal: Soft, non-distended, non-tender abdomen without masses or organomegaly noted. There is no rebound or guarding present. No CVA tenderness. Bowel sounds are unremarkable. Back: No complaint of back pain. Musculoskeletal: Full range of motion upper and lower extremities. No pedal edema. Neurological: No neuro deficits complained of nor found on examination. Cranial nerves II through XII are intact. Skin: Skin is warm and dry and no rashes or lesions are noted. Limitations: no limitations Course Vital Signs 11/13/17 11:19 Temperature 97.8 F Pulse Rate 78 Respiratory 20 Rate Blood Pressure 126/85 O2 Sat by Pulse 98 Oximetry Medical Decision Making - Medical Decision Making Medical decision making; the patient presents emergency room with right sided neck muscle discomfort. X-rays of the cervical spine were done and reviewed by radiologist his findings are reviewed. His final impression is; mild spondylotic change mid cervical spine. Preserved alignment. No acute osseous abnormality seen. As read by Dr. Garcia Gage was given one [place] in emergency room. She hadn't taken ibuprofen at home without relief. Patient be discharged home with 10 pain pills told to apply heat or ice whatever makes her neck feels better including hot showers. Advised follow-up with family doctor as needed. Disposition Clinical Impression: Wry neck Disposition: HOME SELF-CARE Condition: Fair Additional Instructions: Apply heat or ice which are makes her feel better, consider hot showers for muscle relaxation. Take pain medication as directed. Also low-dose of Valium twice a day for 2 days. Prescriptions: Diazepam [Valium] 2 mg PO BID #4 tab Hydrocodone/Acetaminophen [[place] 5-325] 1 each PO Q6HR PRN #10 tab PRN Reason: Pain Referrals: Nonstaff,Physician [REFERRING] - 1-2 days Time of Disposition: 12:44
--- NOTE | 2017-11-13 12:28 | XR ---
EXAMINATION TYPE: XR cervical spine comp DATE OF EXAM: 11/13/2017 COMPARISON: NONE HISTORY: 52-year-old female right-sided neck pain, wrye neck. TECHNIQUE: 5 views FINDINGS: No predental space widening or prevertebral soft tissue swelling. Mild endplate spondylosis noted the cervical spine. No significant bony spondylotic neural foraminal narrowing seen on either side thoug h assessment of the right-sided neuroforamen are limited due to the degree of obliquity. Alignment is maintained. Normal odontoid view. IMPRESSION: Mild spondylotic change mid cervical spine. Preserved alignment. No acute osseous abnormality seen.
[2017-11-13] MEDS ORDERED: DIAZEPAM 2 MG TAB PO SCH (12:45)
[2017-11-13] MEDS ORDERED: DIAZEPAM 2 MG TAB PO ONE (13:00)
[2017-11-13 13:18] VITALS: BP 103/62; PULSE 96; RESP 18
== END 2017-11-13 13:23 | disposition home or self-care (01) ==
LOC: EC 11:09
DX: M43.6 Torticollis (principal); M47.812 Spondylosis without myelopathy or radiculopathy, cervical region; E78.5 Hyperlipidemia, unspecified; I25.10 Atherosclerotic heart disease of native coronary artery without angina pectoris; F17.200 Nicotine dependence, unspecified, uncomplicated; Z79.01 Long term (current) use of anticoagulants; Z79.82 Long term (current) use of aspirin; Z79.899 Other long term (current) drug therapy; Z88.0 Allergy status to penicillin; Z91.013 Allergy to seafood; Z86.79 Personal history of other diseases of the circulatory system
CPT/HCPCS: 72050; 99284

== ENCOUNTER → 2018-09-30 | Outpatient (CLI) | payer MEDICARE, OTHER ==
--- NOTE | 2018-10-07 09:14 | MM ---
Reason for exam: screening (asymptomatic). Last mammogram was performed 1 year and 7 months ago. Physical Findings: A clinical breast exam by your physician is recommended on an annual basis and results should be correlated with mammographic findings. MG Screening Mammo w CAD Bilateral CC and MLO view(s) were taken. XCCL view(s) were taken of the left breast. Prior study comparison: February 23, 2017, mammogram, performed at [facility]. February 23, 2016, mammogram, performed at [facility]. There are scattered fibroglandular densities. There is no discrete abnormality. No significant changes when compared with prior studies. ASSESSMENT: Negative, BI-RAD 1 RECOMMENDATION: Routine screening mammogram of both breasts in 1 year.
== END | disposition home or self-care (01) ==
LOC: RADMAMWWP 10:06
PROVIDERS: ATTEND Internal Medicine
DX: Z12.31 Encounter for screening mammogram for malignant neoplasm of breast (principal)
CPT/HCPCS: 77067

== ENCOUNTER 2018-10-01 12:49 | Inpatient (IN) | payer MEDICARE, OTHER ==
[2018-10-01] MEDS ORDERED: SODIUM CHLORIDE 0.9% 500 ML 500 ML IV STA (13:12)
[2018-10-01] MEDS ORDERED: NITROGLYCERIN OINT 1 INCH/GM PACKET TOPICAL STA (13:12)
[2018-10-01] MEDS ORDERED: ASPIRIN 81 MG PO STA (13:12)
--- NOTE | 2018-10-01 13:17 | ED ---
General Adult HPI - General Stated complaint: chest pain Time Seen by Provider: 10/01/18 12:50 Source: RN notes reviewed - History of Present Illness Initial comments: This is a 53-year-old female presents emergency department with past medical history significant for atrial fibrillation and a defibrillator according to the patient. Patient does know why she has the defibrillator exactly other than she has an arrhythmia occasion. Patient denies any stent placements in the past. Patient states she has 2 valve replacements. Patient states she's already on Coumadin. Patient states about an hour prior to arrival she has chest pains in her chest and does not radiate anywhere and she is mildly short of breath. Patient denies any diaphoretic episodes. Patient denies any nausea patient patient denies abdominal pain patient denies any vomiting or diarrhea. Patient denies any recent fever chills but she states she has a dry cough occasionally. Patient denies headache patient denies numbness weakness. Patient denies any recent injury or trauma. - Related Data Home Medications Medication Instructions Recorded Confirmed Pravastatin Sodium [Pravachol] 40 mg PO HS 03/25/15 11/13/17 Aspirin EC [Ecotrin Low Dose] 81 mg PO DAILY 06/27/16 11/13/17 Loratadine [Claritin] 10 mg PO DAILY 06/27/16 11/13/17 Warfarin [Coumadin] 10 mg PO MOTUWETHFRSA 05/01/17 11/13/17 Warfarin [Coumadin] 15 mg PO ERAZO 05/01/17 11/13/17 Isosorbide Mononitrate ER [Imdur] 30 mg PO DAILY 05/02/17 11/13/17 HYDROcodone/APAP 7.5-325MG [[place] 1 tab PO TID PRN 11/13/17 11/13/17 7.5-325] hydrALAZINE HCL [Apresoline] 25 mg PO TID 11/13/17 11/13/17 Previous Rx's Medication Instructions Recorded Lisinopril 40 mg PO DAILY #30 tablet 03/27/15 Spironolactone [Aldactone] 25 mg PO DAILY #30 tab 03/27/15 Carvedilol [Coreg*] 25 mg PO BID-W/MEALS #60 tab 05/03/17 Nitroglycerin Sl Tabs [Nitrostat] 0.4 mg SUBLINGUAL Q5M PRN #30 tab 05/03/17 Diazepam [Valium] 2 mg PO BID #4 tab 11/13/17 Hydrocodone/Acetaminophen [[place] 1 each PO Q6HR PRN #10 tab 11/13/17 5-325] Allergies Allergy/AdvReac Type Severity Reaction Status Date / Time Penicillins Allergy Anaphylaxis Verified 10/01/18 13:32 shellfish derived [Shellfish] Allergy Anaphylaxis Verified 10/01/18 13:32 Review of Systems ROS Statement: Those systems with pertinent positive or pertinent negative responses have been documented in the HPI. ROS Other: All systems not noted in ROS Statement are negative. Past Medical History Past Medical History: Coronary Artery Disease (CAD), Chest Pain / Angina, Heart Failure, GERD/Reflux, Hyperlipidemia, Myocardial Infarction ([place]), Syncope Additional Past Medical History / Comment(s): Recent UTI, nonischemic cardiomyopathy, anemia in past, DVT Last Myocardial Infarction Date:: 2007 History of Any Multi-Drug Resistant Organisms: None Reported Past Surgical History: AICD, Cholecystectomy, Pacemaker, Tubal Ligation Additional Past Surgical History / Comment(s): 2006 AICD at [facility], 31/03 mitral valve repair and St. Pb aortic valve replaced Past Anesthesia/Blood Transfusion Reactions: No Reported Reaction Additional Past Anesthesia/Blood Transfusion Reaction / Comment(s): Pt has received blood in past without reaction. Type of Cardiac Device: AICD Device Placement Date:: 2006 Past Psychological History: No Psychological Hx Reported Smoking Status: Current some day smoker Past Alcohol Use History: None Reported Past Drug Use History: None Reported - Past Family History Father Family Medical History: Myocardial Infarction ([place]) Additional Family Medical History / Comment(s): Father of a ND at the age of 60yrs. Mother Family Medical History: CVA/TIA, Seizure Disorder Additional Family Medical History / Comment(s): Mother had a CVA and seizures- had a trach and was comatose for 3 yrs before she . General Exam - General Exam Comments Initial Comments: GENERAL: Patient is well-developed and well-nourished. Patient is nontoxic and well- hydrated and is in mild distress. ENT: Neck is soft and supple. No significant lymphadenopathy is noted. Oropharynx is clear. Moist mucous membranes. Neck has full range of motion without eliciting any pain. EYES: The sclera were anicteric and conjunctiva were pink and moist. Extraocular movements were intact and pupils were equal round and reactive to light. Eyelids were unremarkable. PULMONARY: Unlabored respirations. Good breath sounds bilaterally. No audible rales rhonchi or wheezing was noted. CARDIOVASCULAR: There is a regular rate and rhythm without any murmurs gallops or rubs. ABDOMEN: Soft and nontender with normal bowel sounds. No palpable organomegaly was noted. There is no palpable pulsatile mass. SKIN: Skin is clear with no lesions or rashes and otherwise unremarkable. NEUROLOGIC: Patient is alert and oriented x3. Cranial nerves II through XII are grossly intact. Motor and sensory are also intact. Normal speech, volume and content. Symmetrical smile. MUSCULOSKELETAL: Normal extremities with adequate strength and full range of motion. No lower extremity swelling or edema. No calf tenderness. LYMPHATICS: No significant lymphadenopathy is noted PSYCHIATRIC: Normal psychiatric evaluation. Course Vital Signs 10/01/18 10/01/18 10/01/18 12:55 12:59 13:00 Temperature 98.1 F Pulse Rate 69 69 Pulse Rate [ Life Sciences Manager ] Respiratory 18 10 L 11 L Rate Blood Pressure 118/85 O2 Sat by Pulse 97 92 L Oximetry 10/01/18 10/01/18 10/01/18 13:10 13:20 13:30 Temperature Pulse Rate 68 67 67 Pulse Rate [ 69 Life Sciences Manager ] Respiratory 15 11 L 15 Rate Blood Pressure 118/85 116/78 116/78 O2 Sat by Pulse 95 96 92 L Oximetry 10/01/18 10/01/18 10/01/18 13:40 13:50 14:00 Temperature Pulse Rate 73 68 65 Pulse Rate [ Life Sciences Manager ] Respiratory 18 16 9 L Rate Blood Pressure 119/84 119/84 119/84 O2 Sat by Pulse 94 L 98 98 Oximetry 10/01/18 10/01/18 14:10 14:20 Temperature Pulse Rate 66 65 Pulse Rate [ Life Sciences Manager ] Respiratory 18 13 Rate Blood Pressure 118/88 116/84 O2 Sat by Pulse 100 100 Oximetry Medical Decision Making - Medical Decision Making EKG shows normal sinus rhythm at 71 bpm CA interval 158 QRSs 128 QT interval is 4:30 QTC is 467. Patient's EKG shows flipped T waves in the inferior leads as well as precordial leads V5 and V6. Chest x-ray shows no acute abnormality. Patient's pain subsided while in the ER with Nitropaste. I spoke with the patient's primary medical care doctor he agreed to admit admitted the patient I consult cardiology - Lab Data Result diagrams: 10/01/18 13:10 10/01/18 13:10 Lab Results 10/01/18 10/01/18 10/01/18 Range/Units 13:10 13:10 13:10 WBC 7.9 (3.8-10.6) k/uL RBC 4.69 (3.80-5.40) m/uL Hgb 13.1 (11.4-16.0) gm/dL Hct 40.4 (34.0-46.0) % MCV 86.1 (80.0-100.0) fL MCH 28.0 (25.0-35.0) pg MCHC 32.6 (31.0-37.0) g/dL RDW 14.0 (11.5-15.5) % Plt Count 238 (150-450) k/uL Neutrophils % 67 % Lymphocytes % 21 % Monocytes % 7 % Eosinophils % 2 % Basophils % 0 % Neutrophils # 5.3 (1.3-7.7) k/uL Lymphocytes # 1.7 (1.0-4.8) k/uL Monocytes # 0.6 (0-1.0) k/uL Eosinophils # 0.1 (0-0.7) k/uL Basophils # 0.0 (0-0.2) k/uL PT (9.0-12.0) sec INR (<1.2) APTT (22.0-30.0) sec Sodium 141 (137-145) mmol/L Potassium 4.1 (3.5-5.1) mmol/L Chloride 110 H (98-107) mmol/L Carbon Dioxide 25 (22-30) mmol/L Anion Gap 6 mmol/L BUN 13 (7-17) mg/dL Creatinine 0.83 (0.52-1.04) mg/dL Est GFR (CKD-EPI)AfAm >90 (>60 ml/min/1.73 sqM) Est GFR (CKD-EPI)NonAf 81 (>60 ml/min/1.73 sqM) Glucose 117 H (74-99) mg/dL Calcium 9.3 (8.4-10.2) mg/dL Magnesium 1.8 (1.6-2.3) mg/dL Total Bilirubin 0.5 (0.2-1.3) mg/dL AST 22 (14-36) U/L ALT 24 (9-52) U/L Alkaline Phosphatase 71 (38-126) U/L Total Creatine Kinase 99 (30-135) U/L CK-MB (CK-2) 0.5 (0.0-2.4) ng/mL CK-MB (CK-2) Rel Index 0.5 Troponin I <0.012 (0.000-0.034) ng/mL Total Protein 7.0 (6.3-8.2) g/dL Albumin 3.7 (3.5-5.0) g/dL // Range/Units 13:10 WBC (3.8-10.6) k/uL RBC (3.80-5.40) m/uL Hgb (11.4-16.0) gm/dL Hct (34.0-46.0) % MCV (80.0-100.0) fL MCH (25.0-35.0) pg MCHC (31.0-37.0) g/dL RDW (11.5-15.5) % Plt Count (150-450) k/uL Neutrophils % % Lymphocytes % % Monocytes % % Eosinophils % % Basophils % % Neutrophils # (1.3-7.7) k/uL Lymphocytes # (1.0-4.8) k/uL Monocytes # (0-1.0) k/uL Eosinophils # (0-0.7) k/uL Basophils # (0-0.2) k/uL PT 11.7 (9.0-12.0) sec INR 1.2 H (<1.2) APTT 29.1 (22.0-30.0) sec Sodium (137-145) mmol/L Potassium (3.5-5.1) mmol/L Chloride (98-107) mmol/L Carbon Dioxide (22-30) mmol/L Anion Gap mmol/L BUN (7-17) mg/dL Creatinine (0.52-1.04) mg/dL Est GFR (CKD-EPI)AfAm (>60 ml/min/1.73 sqM) Est GFR (CKD-EPI)NonAf (>60 ml/min/1.73 sqM) Glucose (74-99) mg/dL Calcium (8.4-10.2) mg/dL Magnesium (1.6-2.3) mg/dL Total Bilirubin (0.2-1.3) mg/dL AST (14-36) U/L ALT (9-52) U/L Alkaline Phosphatase (38-126) U/L Total Creatine Kinase (30-135) U/L CK-MB (CK-2) (0.0-2.4) ng/mL CK-MB (CK-2) Rel Index Troponin I (0.000-0.034) ng/mL Total Protein (6.3-8.2) g/dL Albumin (3.5-5.0) g/dL Disposition Clinical Impression: Unstable angina Disposition: ADMITTED IP TO THIS HOSP Referrals: Karly Kaplan MD [Primary Care Provider] - 1-2 days Time of Disposition: 14:55
--- NOTE | 2018-10-01 13:51 | XR ---
EXAMINATION TYPE: XR chest 2V DATE OF EXAM: 10/01/2018 COMPARISON: 05/01/2017 TECHNIQUE: PA and lateral views submitted. HISTORY: Chest pain FINDINGS: The lungs are clear and there is no pneumothorax, pleural effusion, or focal pneumonia. Cardiomegal y with postoperative change and cardiac device noted. No overt failure. Biapical pleural thickening. Arthropathy of the shoulders. Surgical clips in the abdomen suggested. Hypertrophic change of the saman tebral column. Mild central interstitial prominence. IMPRESSION: 1. Cardiomegaly and mild central interstitial prominence correlate for mild venous congestion.
[2018-10-01 13:53] LABS: Basophils % (A) 0 %; Eosinophils # (A) 0.1 k/uL (0-0.7); Eosinophils % (A) 2 %; HCT 40.4 % (34.0-46.0); HGB 13.1 gm/dL (11.4-16.0); Lymphocytes # (A) 1.7 k/uL (1.0-4.8); Lymphocytes % (A) 21 %; MCHC 32.6 g/dL (31.0-37.0); MCV 86.1 fL (80.0-100.0); Monocytes # (A) 0.6 k/uL (0-1.0); Monocytes % (A) 7 %; Neutrophils # (A) 5.3 k/uL (1.3-7.7); Neutrophils % (A) 67 %; Platelet Count 238 k/uL (150-450); RBC 4.69 m/uL (3.80-5.40); WBC 7.9 k/uL (3.8-10.6)
[2018-10-01 14:06] LABS: INR 1.2 (<1.2); Partial Thromboplastin Time 29.1 sec (22.0-30.0); Prothrombin Time 11.7 sec (9.0-12.0)
[2018-10-01 14:07] LABS: ALT 24 U/L (9-52); AST 22 U/L (14-36); Albumin 3.7 g/dL (3.5-5.0); Alkaline Phosphatase 71 U/L (38-126); Anion Gap 6 mmol/L; Blood Urea Nitrogen 13 mg/dL (7-17); Calcium 9.3 mg/dL (8.4-10.2); Carbon Dioxide 25 mmol/L (22-30); Chloride 110 mmol/L (98-107); Glucose 117 mg/dL (74-99); Magnesium 1.8 mg/dL (1.6-2.3); Potassium 4.1 mmol/L (3.5-5.1); Sodium 141 mmol/L (137-145); Total Bilirubin 0.5 mg/dL (0.2-1.3)
[2018-10-01 14:30] LABS: Creatine Kinase 99 U/L (30-135)
[2018-10-01 14:44] LABS: Creatine Kinase MB 0.5 ng/mL (0.0-2.4); Troponin I <0.012 ng/mL (0.000-0.034)
[2018-10-01] MEDS ORDERED: NITROGLYCERIN SL TABS 0.4 MG TAB SUBLINGUAL PRN (14:57)
--- NOTE | 2018-10-01 16:00 | P.HPIM ---
History of Present Illness H&P Date: 10/01/18 Chief Complaint: Chest pain This is a 83-year-old female patient presented to the emergency room with complaints of chest pain. Patient states this afternoon patient experienced burning in center of chest with mild shortness breath. Patient does have a known past medical history of mitral and aortic valve replacement in 2004 in which she is on Coumadin. Patient also has a known past medical history of AICD in 2006, coronary artery disease, chest pain, heart failure, GERD, hyperlipidemia, myocardial infarction, syncope, recurrent UTIs and smoker. EKG completed showing normal sinus rhythm. Chest x-ray completed showing cardiomegaly and [id number] central interstitial prominence correlate for mild venous congestion. Patient did report that she has not been taking her Lasix or Imdur for the past month due to patient not having a refill. Troponin negative. INR subtherapeutic at 1.2. Patient is also complaining of increased left lower extremity edema. Will order Venous Doppler to rule out DVT. At this time patient is complaining of mild chest discomfort. Patient denies shortness of breath. Patient denies nausea vomiting or diarrhea. Patient denies any urinary burning or frequency. Review of Systems Please refer to HPI otherwise unremarkable Past Medical History Past Medical History: Coronary Artery Disease (CAD), Chest Pain / Angina, Heart Failure, GERD/Reflux, Hyperlipidemia, Myocardial Infarction ([place]), Syncope Additional Past Medical History / Comment(s): Recent UTI, nonischemic cardiomyopathy, anemia in past, DVT Last Myocardial Infarction Date:: 2007 History of Any Multi-Drug Resistant Organisms: None Reported Past Surgical History: AICD, Cholecystectomy, Pacemaker, Tubal Ligation Additional Past Surgical History / Comment(s): 2007 AICD at [facility], 31/03 mitral valve repair and St. Pb aortic valve replaced Past Anesthesia/Blood Transfusion Reactions: No Reported Reaction Additional Past Anesthesia/Blood Transfusion Reaction / Comment(s): Pt has received blood in past without reaction. Type of Cardiac Device: AICD Device Placement Date:: 2006 Past Psychological History: No Psychological Hx Reported Smoking Status: Current some day smoker Past Alcohol Use History: None Reported Past Drug Use History: None Reported - Past Family History Father Family Medical History: Myocardial Infarction ([place]) Additional Family Medical History / Comment(s): Father of a [place] at the age of 60yrs. Mother Family Medical History: CVA/TIA, Seizure Disorder Additional Family Medical History / Comment(s): Mother had a CVA and seizures- had a trach and was comatose for 3 yrs before she . Medications and Allergies Home Medications Medication Instructions Recorded Confirmed Type Pravastatin Sodium [Pravachol] 40 mg PO HS 03/25/15 10/01/18 History Lisinopril 40 mg PO DAILY #30 tablet 03/27/15 10/01/18 Rx Spironolactone [Aldactone] 25 mg PO DAILY #30 tab 03/27/15 10/01/18 Rx Aspirin EC [Ecotrin Low Dose] 81 mg PO DAILY 06/27/16 10/01/18 History Loratadine [Claritin] 10 mg PO DAILY 06/27/16 10/01/18 History Warfarin [Coumadin] 10 mg PO MOTUWETHFRSA 05/01/17 10/01/18 History Warfarin [Coumadin] 15 mg PO ERAZO 05/01/17 10/01/18 History Isosorbide Mononitrate ER [Imdur] 30 mg PO DAILY 05/02/17 10/01/18 History Nitroglycerin Sl Tabs [Nitrostat] 0.4 mg SUBLINGUAL Q5M PRN #30 tab 05/03/17 Rx HYDROcodone/APAP 7.5-325MG [[place] 1 tab PO BID 11/13/17 10/01/18 History 7.5-325] hydrALAZINE HCL [Apresoline] 25 mg PO BID 11/13/17 10/01/18 History Carvedilol [Coreg] 25 mg PO BID 10/01/18 10/01/18 History Furosemide [Lasix] 20 mg PO DAILY 10/01/18 10/01/18 History Allergies Allergy/AdvReac Type Severity Reaction Status Date / Time Penicillins Allergy Anaphylaxis Verified 10/01/18 13:32 shellfish derived [Shellfish] Allergy Anaphylaxis Verified 10/01/18 13:32 Physical Exam Vitals: Vital Signs Temp Pulse Pulse Resp BP Pulse Ox 10/01/18 14:20 65 13 116/84 100 10/01/18 14:10 66 18 118/88 100 10/01/18 14:00 65 9 L 119/84 98 10/01/18 13:50 68 16 119/84 98 10/01/18 13:40 73 18 119/84 94 L 10/01/18 13:30 67 15 116/78 92 L 10/01/18 13:20 67 11 L 116/78 96 10/01/18 13:10 68 69 15 118/85 95 10/01/18 13:00 69 11 L 92 L 10/01/18 12:59 10 L 10/01/18 12:55 98.1 F 69 18 118/85 97 Intake and Output 10/01/18 10/01/18 10/01/18 06:59 14:59 22:59 Other: Weight 139.253 kg Head normocephalic Neck supple Lungs clear to auscultation bilaterally no wheezing or crackles Heart regular rate and rhythm S1-S2, no rub or gallop Abdomen is soft nontender nondistended positive bowel sounds no hepatosplenomegaly Extremities no edema Neuro alert and orientated to 3 Results CBC & Chem 7: 10/01/18 13:10 10/01/18 13:10 Labs: Abnormal Lab Results - Last 24 Hours (Table) 10/01/18 10/01/18 Range/Units 13:10 13:10 INR 1.2 H (<1.2) Chloride 110 H (98-107) mmol/L Glucose 117 H (74-99) mg/dL Assessment and Plan Assessment: 1. Chest pain. Troponin negative. EKG completed showing normal sinus rhythm. Chest x-ray completed showing cardiomegaly with mild central interstitial prominence correlate for mild venous congestion. Cardiology services have been consulted. 2. Increased left lower extremity edema. Venous Doppler to rule out DVT ordered 3. History of AICD in 2006 4. History of mitral and aortic valve replacement in 2004 5. History of coronary artery disease. 6. Hyperlipidemia 7. nonischemic cardiomyopathy 8. essential hypertension A.m. labs ordered. Awaiting cardiology consult Time with Patient: Greater than 30 (Greater than 60% of the total time spent in counseling and coordination of care. I performed an examination of the patient and discussed their management with the Nurse Practitioner. I have reviewed the Nurse Practitioner's notes and agree with the documented findings and plan of care)
[2018-10-01] MEDS: CARVEDILOL 12.5 MG TAB PO SCH (17:04)
[2018-10-01] MEDS ORDERED: WARFARIN 10 MG TAB PO SCH (18:00)
[2018-10-01] MEDS ORDERED: NITROGLYCERIN OINT 1 INCH/GM PACKET TOPICAL SCH (18:00)
--- NOTE | 2018-10-01 19:09 | US ---
EXAMINATION TYPE: US venous doppler duplex LE LT DATE OF EXAM: 10/01/2018 5:36 PM COMPARISON: NONE CLINICAL HISTORY: rule out DVT. Left leg swelling, patient on coumadin. SIDE PERFORMED: Left TECHNIQUE: The lower extremity deep venous system is examined utilizing real time linear array sonog chiqui with graded compression, doppler sonography and color-flow sonography. VESSELS IMAGED: External Iliac Vein (EIV) Common Femoral Vein Deep Femoral Vein Greater Saphenous Vein * Femoral Vein Popliteal Vein Small Saphenous Vein * Proximal Calf Veins (* superficial vessels) FINDINGS: Grayscale, color doppler, spectral doppler imaging performed of the deep veins of the lower extremities. There is normal flow, compressibility, vascular waveforms. IMPRESSION: NEGATIVE FOR DVT LEFT LOWER EXTREMITY.
[2018-10-01] MEDS: hydrALAZINE HCL 25 MG TAB PO SCH (19:29)
[2018-10-01] MEDS: HYDROcodone/APAP 7.5-325MG 1 EACH TAB PO SCH (19:29)
[2018-10-01] MEDS: PRAVASTATIN SODIUM 40 MG TAB PO SCH (19:29)
[2018-10-01 20:04] LABS: Creatine Kinase 89 U/L (30-135)
[2018-10-01 20:16] LABS: Creatine Kinase MB 0.4 ng/mL (0.0-2.4); Troponin I <0.012 ng/mL (0.000-0.034)
[2018-10-02 01:41] LABS: Creatine Kinase 81 U/L (30-135)
[2018-10-02 01:55] LABS: Creatine Kinase MB 0.4 ng/mL (0.0-2.4); Troponin I <0.012 ng/mL (0.000-0.034)
[2018-10-02 07:01] LABS: Basophils % (A) 0 %; Eosinophils # (A) 0.2 k/uL (0-0.7); Eosinophils % (A) 2 %; HCT 36.2 % (34.0-46.0); HGB 12.1 gm/dL (11.4-16.0); Lymphocytes # (A) 1.7 k/uL (1.0-4.8); Lymphocytes % (A) 25 %; MCH 28.9 pg (25.0-35.0); MCHC 33.5 g/dL (31.0-37.0); MCV 86.4 fL (80.0-100.0); Mean Platelet Volume 7.7; Monocytes # (A) 0.4 k/uL (0-1.0); Monocytes % (A) 6 %; Neutrophils # (A) 4.5 k/uL (1.3-7.7); Neutrophils % (A) 64 %; Platelet Count 215 k/uL (150-450); RBC 4.19 m/uL (3.80-5.40); RDW 14.1 % (11.5-15.5)
[2018-10-02 07:26] LABS: ALT 27 U/L (9-52); AST 17 U/L (14-36); Albumin 3.1 g/dL (3.5-5.0); Alkaline Phosphatase 64 U/L (38-126); Anion Gap 4 mmol/L; Blood Urea Nitrogen 9 mg/dL (7-17); Calcium 8.9 mg/dL (8.4-10.2); Carbon Dioxide 26 mmol/L (22-30); Chloride 111 mmol/L (98-107); Cholesterol 143 mg/dL (<200); Glucose 86 mg/dL (74-99); HDL Cholesterol 39 mg/dL (40-60); LDL Cholesterol,Calculated 91 mg/dL (0-99); Potassium 3.9 mmol/L (3.5-5.1); Sodium 141 mmol/L (137-145); Total Bilirubin 0.6 mg/dL (0.2-1.3); Total Protein 6.1 g/dL (6.3-8.2); Triglycerides 65 mg/dL (<150)
[2018-10-02] MEDS ORDERED: REGADENOSON 0.4 MG/5 ML SYRINGE IV ONE (08:13)
[2018-10-02] MEDS ORDERED: CAFFEINE CITRATE 60 MG/3 ML VIAL IV PRN (08:13)
[2018-10-02] MEDS ORDERED: ASPIRIN 325 MG TAB PO SCH (09:00)
[2018-10-02 10:00] LABS: INR 1.5 (<1.2); Prothrombin Time 13.8 sec (9.0-12.0)
--- NOTE | 2018-10-02 10:51 | P.CRDCN ---
History of Present Illness History of present illness: This is a pleasant 53-year-old female past medical history significant for aortic valve replacement on chcf anticoagulation with coumadin, non-ischemic dilated cardiomyopathy, chronic systolic heart failure, hypertension, dyslipidemia and morbid obesity. There is no documented history of coronary artery disease or atrial fibrillation. She hasn't seen Dr. De Los Santos since 10/2017 and states she has been following with Dr. Kaplan for medication refills as well as coagulation monitoring. She states her INR was elevated earlier this week and was told to not take her coumadin for 2 days. We have been asked to see her in consultation for chest pain. She states Sunday she had a mammogram and while she was getting it done she noticed it was hurting around the site of her AICD. The pain was constant and achy all day Sunday. She woke up Sunday and the pain changed from an ache to a burning sensation in the chest around the site of the AICD with radiation back and forth to the mid- sternal region and down her left arm. This went off an on all day yesterday with no specific aggravating or alleviating factors. She denies radiation to the back or jaw. She denies shortness of breath, dizziness, palpitations nausea , vomiting or diaphoresis. She continues to feel mild discomfort around the site of the AICD on palpitation with intermitted radiation to the mid-sternal region. She also complains of left lower extremity swelling and has undergone a lower extremity doppler which is negative for DVT. She was apparently also out of imdur and lasix and has therefore not been taking either of these medications. EKG reveals sinus mechanism with incomplete left bundle branch block with non- specific T-wave abnormalities. When compared to old EKG's this is baseline. Chest xray reveals mild venous congestion with cardiomegaly. Laboratory data reviewed, WBC 7, hemoglobin 12.1, platelets 2:15, INR 1.2, sodium 141, potassium 3.9, creatinine 0.84, magnesium 1.8, cardiac enzymes negative 3, NT proBNP 546, LDL 91 and HDL 39. Current cardiac medications include aspirin 81 mg daily, carvedilol 25 mg twice a day, Lasix 20 mg daily, Imdur 30 mg daily, lisinopril 40 mg daily, pravastatin 40 mg daily, Aldactone 25 mg daily, hydralazine 25 mg twice a day and Coumadin 10 mg Sunday and 15 mg on Sunday. Most recent echocardiogram performed April 2017 reveals severely impaired left ventricular systolic function with ejection fraction 20-25% with global hypokinesia, aortic valve trileaflet and mildly thickened, moderately thickened mitral valve with mild MR mean gradient across the mitral valve 3 mmHg, mild TR and mild pulmonary hypertension with an RVSP of 37.27 mmHg. At the time of my exam: CONSTITUTIONAL: Denies fever. Denies chills. EYES: Denies blurred vision. Denies vision changes. Denies eye pain. EARS, NOSE, MOUTH & THROAT: Denies headache. Denies sore throat. Denies ear pain. CARDIOVASCULAR: Denies chest pain. Denies shortness of breath. Denies orthopnea. Denies PND. Denies palpitations. RESPIRATORY: Denies cough. GASTROINTESTINAL: Denies abdominal pain. Denies diarrhea. Denies constipation. Denies nausea. Denies vomiting. MUSCULOSKELETAL: Denies myalgias. INTEGUMENTARY: Denies pruitis. Denies rash. NEUROLOGIC: Denies numbness. Denies tingling. Denies weakness. PSYCHIATRIC: Denies anxiety. Denies depression. ENDOCRINE: Denies fatigue. Denies weight change. Denies polydipsia. Denies polyurina. GENITOURINARY: Denies burning, hematuria or urgency with micturation. HEMATOLOGIC: Denies history of anemia. Denies bleeding. Blood pressure 120/74 heart rate 57 afebrile maintaining oxygen saturation on room air GENERAL: This is a 53-year-old -[place] female in no apparent distress at the time of my examination. Morbidly obese. HEENT: Head is atraumatic, normocephalic. Pupils are equal, round. Sclerae anicteric. Conjunctivae are clear. Mucous membranes of the mouth are moist. Neck is supple. There is no jugular venous distention. No carotid bruit is heard. LUNGS: Clear to auscultation no wheezes, rales or rhonchi. No chest wall tenderness is noted on palpation or with deep breathing. HEART: Regular rate and rhythm with distinct sound of prosthetic valve in the aortic region, no murmur, no rubs or gallops. S1 and S2 heard. ABDOMEN: Soft, nontender. Bowel sounds are heard. No organomegaly noted. EXTREMITIES: No evidence of peripheral edema and no calf tenderness noted. VASCULAR: Radial and dorsalis pedis pulses palpated, no evidence of clubbing. NEUROLOGIC: Patient is awake, alert and oriented x3. ASSESSMENT Chest pain, atypical. An acute coronary event has been ruled out. Subtherapeutic INR target should be 2.5-3.. History of nonischemic cardiomyopathy Chronic systolic heart failure, currently euvolemic. Most recent ejection fraction 20-25%. History of aortic valve replacement with prosthetic valve s/p AICD Hypertension Dyslipidemia Morbid obesity, BMI 46 Chronic nicotine dependence PLAN An acute coronary event has been ruled out. Obtain 2-D echocardiogram and Doppler study to assess cardiac structure and function. Perform Lexiscan stress test to assess for stress-induced reversible ischemia. If stress test is normal she is stable from a cardiac perspective. Give coumadin 15 mg today for sub-therapeutic INR. Resume home dose of 10 mg daily thereafter. Continue coumadin dosing at Dr. Kaplan's office. Follow up with Dr. De Los Santos in 2-3 weeks. Thank you kindly for this consultation. Nurse Practitioner note has been reviewed, I agree with a documented findings and plan of care. Patient was seen and examined. Past Medical History Past Medical History: Coronary Artery Disease (CAD), Chest Pain / Angina, Heart Failure, GERD/Reflux, Hyperlipidemia, Myocardial Infarction (DC), Syncope Additional Past Medical History / Comment(s): Recent UTI, nonischemic cardiomyopathy, anemia in past, DVT, past stress test Last Myocardial Infarction Date:: 2007 History of Any Multi-Drug Resistant Organisms: None Reported Past Surgical History: AICD, Cholecystectomy, Pacemaker, Tubal Ligation Additional Past Surgical History / Comment(s): 2006 AICD at [facility], 31/03 [address] valve repair and [address] Pb aortic valve replaced Past Anesthesia/Blood Transfusion Reactions: No Reported Reaction Additional Past Anesthesia/Blood Transfusion Reaction / Comment(s): Pt has received blood in past without reaction. Type of Cardiac Device: AICD Device Placement Date:: 2006 Smoking Status: Current some day smoker - Past Family History Father Family Medical History: Myocardial Infarction (DC) Additional Family Medical History / Comment(s): Father of a DC at the age of 60yrs. Mother Family Medical History: CVA/TIA, Seizure Disorder Additional Family Medical History / Comment(s): Mother had a CVA and seizures- had a trach and was comatose for 3 yrs before she . Medications and Allergies Home Medications Medication Instructions Recorded Confirmed Type Pravastatin Sodium [Pravachol] 40 mg PO HS 03/25/15 10/01/18 History Lisinopril 40 mg PO DAILY #30 tablet 03/27/15 10/01/18 Rx Spironolactone [Aldactone] 25 mg PO DAILY #30 tab 03/27/15 10/01/18 Rx Aspirin EC [Ecotrin Low Dose] 81 mg PO DAILY 06/27/16 10/01/18 History Loratadine [Claritin] 10 mg PO DAILY 06/27/16 10/01/18 History Warfarin [Coumadin] 10 mg PO MOTUWETHFRSA 05/01/17 10/01/18 History Warfarin [Coumadin] 15 mg PO ERAZO 05/01/17 10/01/18 History Isosorbide Mononitrate ER [Imdur] 30 mg PO DAILY 05/02/17 10/01/18 History Nitroglycerin Sl Tabs [Nitrostat] 0.4 mg SUBLINGUAL Q5M PRN #30 tab 05/03/17 Rx HYDROcodone/APAP 7.5-325MG [[place] 1 tab PO BID 11/13/17 10/01/18 History 7.5-325] hydrALAZINE HCL [Apresoline] 25 mg PO BID 11/13/17 10/01/18 History Carvedilol [Coreg] 25 mg PO BID 10/01/18 10/01/18 History Furosemide [Lasix] 20 mg PO DAILY 10/01/18 10/01/18 History Allergies Allergy/AdvReac Type Severity Reaction Status Date / Time Penicillins Allergy Anaphylaxis Verified 10/01/18 13:32 shellfish derived [Shellfish] Allergy Anaphylaxis Verified 10/01/18 13:32 Physical Exam Vitals: Vital Signs Temp Pulse Pulse Pulse Resp BP BP 10/02/18 07:10 97.6 F 57 L 18 120/74 10/02/18 04:00 98.5 F 68 16 106/67 10/01/18 23:50 16 10/01/18 23:29 98.6 F 69 16 117/65 10/01/18 20:00 16 10/01/18 19:35 98.7 F 66 16 105/63 10/01/18 15:55 98.4 F 74 18 115/81 10/01/18 14:20 65 13 116/84 10/01/18 14:10 66 18 118/88 10/01/18 14:00 65 9 L 119/84 10/01/18 13:50 68 16 119/84 10/01/18 13:40 73 18 119/84 10/01/18 13:30 67 15 116/78 10/01/18 13:20 67 11 L 116/78 10/01/18 13:10 68 69 15 118/85 10/01/18 13:00 69 11 L 10/01/18 12:59 10 L 10/01/18 12:55 98.1 F 69 18 118/85 Pulse Ox 10/02/18 07:10 99 10/02/18 04:00 95 10/01/18 23:50 10/01/18 23:29 96 10/01/18 20:00 10/01/18 19:35 99 10/01/18 15:55 96 10/01/18 14:20 100 10/01/18 14:10 100 10/01/18 14:00 98 10/01/18 13:50 98 10/01/18 13:40 94 L 10/01/18 13:30 92 L 10/01/18 13:20 96 10/01/18 13:10 95 10/01/18 13:00 92 L 10/01/18 12:59 10/01/18 12:55 97 Intake and Output 10/01/18 10/02/18 10/02/18 22:59 06:59 14:59 Intake Total 240 Balance 240 Intake: Oral 240 Other: # Voids 1 1 Weight 141.4 kg Results 10/02/18 06:32 10/02/18 06:32 Cardiac Enzymes 10/01/18 10/01/18 10/01/18 Range/Units 13:10 13:10 18:59 AST 22 (14-36) U/L CK-MB (CK-2) 0.5 0.4 (0.0-2.4) ng/mL Troponin I <0.012 <0.012 (0.000-0.034) ng/mL 10/02/18 10/02/18 Range/Units 01:03 06:32 AST 17 (14-36) U/L CK-MB (CK-2) 0.4 (0.0-2.4) ng/mL Troponin I <0.012 (0.000-0.034) ng/mL Coagulation 10/01/18 Range/Units 13:10 PT 11.7 (9.0-12.0) sec APTT 29.1 (22.0-30.0) sec Lipids 10/02/18 Range/Units 06:32 Triglycerides 65 (<150) mg/dL Cholesterol 143 (<200) mg/dL HDL Cholesterol 39 L (40-60) mg/dL CBC 10/01/18 10/02/18 Range/Units 13:10 06:32 WBC 7.9 7.0 (3.8-10.6) k/uL RBC 4.69 4.19 (3.80-5.40) m/uL Hgb 13.1 12.1 (11.4-16.0) gm/dL Hct 40.4 36.2 (34.0-46.0) % Plt Count 238 215 (150-450) k/uL Comprehensive Metabolic Panel 10/01/18 10/02/18 Range/Units 13:10 06:32 Sodium 141 141 (137-145) mmol/L Potassium 4.1 3.9 (3.5-5.1) mmol/L Chloride 110 H 111 H (98-107) mmol/L Carbon Dioxide 25 26 (22-30) mmol/L BUN 13 9 (7-17) mg/dL Creatinine 0.83 0.84 (0.52-1.04) mg/dL Glucose 117 H 86 (74-99) mg/dL Calcium 9.3 8.9 (8.4-10.2) mg/dL AST 22 17 (14-36) U/L ALT 24 27 (9-52) U/L Alkaline Phosphatase 71 64 (38-126) U/L Total Protein 7.0 6.1 L (6.3-8.2) g/dL Albumin 3.7 3.1 L (3.5-5.0) g/dL Current Medications Generic Name Dose Route Start Last Admin Trade Name Freq PRN Reason Stop Dose Admin Hydrocodone Bitart/Acetaminophen 1 each 10/01/18 21:00 10/01/18 19:29 [place] 7.5-325 PO 1 each BID [facility] Administration Aspirin 325 mg 10/02/18 09:00 Aspirin PO DAILY [facility] Caffeine Citrate 60 mg 10/02/18 08:13 Cafcit Inj IV 10/03/18 08:14 ONCE PRN Patient Response Carvedilol 25 mg 10/01/18 17:30 10/01/18 17:04 Coreg PO 25 mg BID-W/MEALS [facility] Administration Furosemide 20 mg 10/02/18 09:00 Lasix PO DAILY [facility] Hydralazine HCl 25 mg 10/01/18 21:00 10/01/18 19:29 Apresoline PO 25 mg BID [facility] Administration Isosorbide Mononitrate 30 mg 10/02/18 09:00 Imdur PO DAILY [facility] Lisinopril 40 mg 10/02/18 09:00 Zestril PO DAILY [facility] Loratadine 10 mg 10/02/18 09:00 Claritin PO DAILY [facility] Nitroglycerin 0.4 mg 10/01/18 14:57 Nitrostat SUBLINGUAL Q5M PRN Chest Pain Pravastatin Sodium 40 mg 10/01/18 21:00 10/01/18 19:29 Pravachol PO 40 mg HS [facility] Administration Spironolactone 25 mg 10/02/18 09:00 Aldactone PO DAILY [facility] Warfarin Sodium 10 mg 10/01/18 18:00 10/01/18 18:33 Coumadin PO 10 mg MOTUWETHFRSA [facility] Administration Warfarin Sodium 15 mg 10/06/18 18:00 Coumadin PO ERAZO [facility] Intake and Output 10/01/18 10/02/18 10/02/18 22:59 06:59 14:59 Intake Total 240 Balance 240 Intake: Oral 240 Other: # Voids 1 1 Weight 141.4 kg 10/02/18 06:32 10/02/18 06:32
[2018-10-02] MEDS: CARVEDILOL 12.5 MG TAB PO SCH ×2 (11:58→18:03)
[2018-10-02] MEDS: hydrALAZINE HCL 25 MG TAB PO SCH ×2 (11:59→20:18)
[2018-10-02] MEDS: FUROSEMIDE 20 MG TAB PO SCH (11:59)
[2018-10-02] MEDS: SPIRONOLACTONE 25 MG TAB PO SCH (11:59)
[2018-10-02] MEDS: LORATADINE 10 MG TAB PO SCH (11:59)
[2018-10-02] MEDS: HYDROcodone/APAP 7.5-325MG 1 EACH TAB PO SCH ×2 (11:59→20:18)
[2018-10-02] MEDS: ISOSORBIDE MONONITRATE ER 30 MG TAB.ER.24H PO SCH (11:59)
--- NOTE | 2018-10-02 11:59 | NM ---
EXAMINATION TYPE: NM stress lexiscan cardiolite DATE OF EXAM: 10/02/2018 COMPARISON: NONE HISTORY: Chest pain TECHNIQUE: After the intravenous administration of 10.2 mCi Tc 99m Sestamibi - Cardiolite resting SP ECT images acquired 45 minutes post injection. The patient received 0.4mg Lexiscan, 23.3 mCi Tc 99m Sestamibi - Stress images obtained [address] injection FINDINGS: Large defects are present. This would include a defect extending from the cardiac apex to t he mid lateral wall on the stress images. This has a more normal appearance on the resting images. Th ere is a large fixed defect along the inferior wall to the cardiac base. Some of this may be artifact ual with adjacent contrast on the resting images. Cardiac apex has a larger defect on stress than on rest. Ejection fraction of 33% is low. There is global hypokinesia. Polar maps appear to underestimate the size of the perfusion defects. IMPRESSION: 1. Stress-induced ischemic change distal anterior wall and cardiac apex. 2. Prior infarct inferior wall. 3. Global hypokinesia with a low ejection fraction at 33%.
[2018-10-02] MEDS: LISINOPRIL 20 MG TAB PO SCH (12:03)
--- NOTE | 2018-10-02 15:05 | P.PN ---
Subjective Progress Note Date: 10/02/18 This is a 83-year-old female patient presented to the emergency room with complaints of chest pain. Patient states this afternoon patient experienced burning in center of chest with mild shortness breath. Patient does have a known past medical history of mitral and aortic valve replacement in 2004 in which she is on Coumadin. Patient also has a known past medical history of AICD in 2006, coronary artery disease, chest pain, heart failure, GERD, hyperlipidemia, myocardial infarction, syncope, recurrent UTIs and smoker. EKG completed showing normal sinus rhythm. Chest x-ray completed showing cardiomegaly and [id number] central interstitial prominence correlate for mild venous congestion. Patient did report that she has not been taking her Lasix or Imdur for the past month due to patient not having a refill. Troponin negative. INR subtherapeutic at 1.2. Patient is also complaining of increased left lower extremity edema. Will order Venous Doppler to rule out DVT. At this time patient is complaining of mild chest discomfort. Patient denies shortness of breath. Patient denies nausea vomiting or diarrhea. Patient denies any urinary burning or frequency. On 10/02/2018 patient is currently resting comfortably in bed. Patient received stress test today. Venous Doppler ultrasound completed showing negative for DVT in left lower extremity. This time patient denies chest pain or shortness breath. Patient denies nausea vomiting or diarrhea. Patient denies any urinary burning or frequency Objective - Vital Signs Vital signs: Vital Signs Temp 97.9 F 10/02/18 11:35 Pulse 72 10/02/18 11:35 Resp 18 10/02/18 11:35 BP 124/73 10/02/18 11:35 Pulse Ox 100 10/02/18 11:35 Intake & Output 10/01/18 10/02/18 10/02/18 18:59 06:59 18:59 Intake Total 240 240 Balance 240 240 Weight 141.4 kg Intake: Oral 240 240 Other: # Voids 1 1 - Exam Head normocephalic Neck supple Lungs clear to auscultation bilaterally no wheezing or crackles Heart regular rate and rhythm S1-S2, no rub or gallop Abdomen is soft nontender nondistended positive bowel sounds no hepatosplenomegaly Extremities no edema Neuro alert and orientated to 3 - Labs CBC & Chem 7: 10/02/18 06:32 10/02/18 06:32 Labs: Abnormal Lab Results - Last 24 Hours (Table) 10/01/18 10/01/18 10/02/18 Range/Units 13:10 13:10 06:32 PT (9.0-12.0) sec INR 1.2 H (<1.2) Chloride 110 H 111 H (98-107) mmol/L Glucose 117 H (74-99) mg/dL Total Protein 6.1 L (6.3-8.2) g/dL Albumin 3.1 L (3.5-5.0) g/dL HDL Cholesterol 39 L (40-60) mg/dL 10/02/18 Range/Units 09:33 PT 13.8 H (9.0-12.0) sec INR 1.5 H (<1.2) Chloride (98-107) mmol/L Glucose (74-99) mg/dL Total Protein (6.3-8.2) g/dL Albumin (3.5-5.0) g/dL HDL Cholesterol (40-60) mg/dL Assessment and Plan Assessment: 1. Chest pain. Troponin negative. EKG completed showing normal sinus rhythm. Chest x-ray completed showing cardiomegaly with mild central interstitial prominence correlate for mild venous congestion. Cardiology services and acute coronary event has been ruled out 2-D echo and stress test has been ordered patient to receive 15g of Coumadin today for subtherapeutic INR. Patient had positive stress test. Discussed with cardiology services. Patient will undergo cardiac catheterization tomorrow 2. Increased left lower extremity edema. Ultrasound negative for DVT in left lower extremity 3. History of AICD in 2006 4. History of mitral and aortic valve replacement in 2004 5. History of coronary artery disease. 6. Hyperlipidemia 7. nonischemic cardiomyopathy 8. essential hypertension DVT prophylaxis Coumadin I performed an examination of the patient and discussed their management with the Nurse Practitioner. I have reviewed the Nurse Practitioner's notes and agree with the documented findings and plan of care
[2018-10-02] MEDS ORDERED: SODIUM CHLORIDE 0.9% 1,000 ML in EMPTY BAG 1 BAG IV ONE (15:10)
--- NOTE | 2018-10-02 15:14 | P.PN ---
Progress Note - Text Lexiscan stress test revealed stress induced ischemic change distal anterior wall and cardiac apex, prior inferior wall infarct and global hypokinesia. Results were discussed with Dr. De Los Santos and he is recommending proceeding with catheterizaiton via radial approach. This has been explained to the patient in great detail. I have discussed the risks, benefits and alternative therapies for the above-mentioned procedure and for both sedation/analgesia as well as necessary blood product administration, if indicated, as they pertain to this patient. The patient has indicated understanding and acceptance of the risks and procedures discussed. She is agreeable to move forward with above stated procedure. NPO after midnight tonight. Orders have been placed.
[2018-10-02] MEDS ORDERED: WARFARIN 7.5 MG TAB PO SCH (18:00)
[2018-10-02] MEDS ORDERED: WARFARIN 7.5 MG TAB PO ONE (18:00)
[2018-10-02] MEDS: PRAVASTATIN SODIUM 40 MG TAB PO SCH (20:18)
[2018-10-03] MEDS: HYDROcodone/APAP 7.5-325MG 1 EACH TAB PO SCH (05:52)
[2018-10-03] MEDS: ISOSORBIDE MONONITRATE ER 30 MG TAB.ER.24H PO SCH (05:52)
[2018-10-03] MEDS: hydrALAZINE HCL 25 MG TAB PO SCH (05:53)
[2018-10-03] MEDS: SPIRONOLACTONE 25 MG TAB PO SCH (05:53)
[2018-10-03] MEDS: LORATADINE 10 MG TAB PO SCH (05:53)
[2018-10-03] MEDS: LISINOPRIL 20 MG TAB PO SCH (05:53)
[2018-10-03] MEDS: CARVEDILOL 12.5 MG TAB PO SCH (05:53)
[2018-10-03 07:42] LABS: Basophils % (A) 0 %; Eosinophils # (A) 0.2 k/uL (0-0.7); Eosinophils % (A) 2 %; HCT 36.5 % (34.0-46.0); HGB 11.7 gm/dL (11.4-16.0); Lymphocytes # (A) 1.8 k/uL (1.0-4.8); Lymphocytes % (A) 25 %; MCH 27.6 pg (25.0-35.0); MCHC 32.1 g/dL (31.0-37.0); MCV 86.1 fL (80.0-100.0); Mean Platelet Volume 7.6; Monocytes # (A) 0.4 k/uL (0-1.0); Monocytes % (A) 6 %; Neutrophils # (A) 4.5 k/uL (1.3-7.7); Neutrophils % (A) 64 %; Platelet Count 222 k/uL (150-450); RBC 4.24 m/uL (3.80-5.40); RDW 14.1 % (11.5-15.5)
[2018-10-03 07:50] LABS: INR 1.7 (<1.2); Prothrombin Time 15.6 sec (9.0-12.0)
[2018-10-03 07:59] LABS: Albumin 3.1 g/dL (3.5-5.0); Calcium 8.8 mg/dL (8.4-10.2); Potassium 3.9 mmol/L (3.5-5.1); Total Bilirubin 0.4 mg/dL (0.2-1.3)
[2018-10-03 08:14] VITALS: RESP 18
[2018-10-03] MEDS ORDERED: ASPIRIN 81 MG PO SCH (09:00)
--- NOTE | 2018-10-03 10:37 | P.PN ---
Subjective Progress Note Date: 10/03/18 This is a 83-year-old female patient presented to the emergency room with complaints of chest pain. Patient states this afternoon patient experienced burning in center of chest with mild shortness breath. Patient does have a known past medical history of mitral and aortic valve replacement in 2004 in which she is on Coumadin. Patient also has a known past medical history of AICD in 2006, coronary artery disease, chest pain, heart failure, GERD, hyperlipidemia, myocardial infarction, syncope, recurrent UTIs and smoker. EKG completed showing normal sinus rhythm. Chest x-ray completed showing cardiomegaly and [id number] central interstitial prominence correlate for mild venous congestion. Patient did report that she has not been taking her Lasix or Imdur for the past month due to patient not having a refill. Troponin negative. INR subtherapeutic at 1.2. Patient is also complaining of increased left lower extremity edema. Will order Venous Doppler to rule out DVT. At this time patient is complaining of mild chest discomfort. Patient denies shortness of breath. Patient denies nausea vomiting or diarrhea. Patient denies any urinary burning or frequency. On 10/02/2018 patient is currently resting comfortably in bed. Patient received stress test today. Venous Doppler ultrasound completed showing negative for DVT in left lower extremity. This time patient denies chest pain or shortness breath. Patient denies nausea vomiting or diarrhea. Patient denies any urinary burning or frequency on 10/03/2018 patient is currently resting comfortably in bed. she did have a positive stress test patient to undergo cardiac catheterization cardiology services today. at this time patient denies chest pain or shortness breath. Patient denies nausea vomiting or diarrhea. Patient denies any urinary burning or frequency Objective - Vital Signs Vital signs: Vital Signs Temp 98.2 F 10/03/18 07:15 Pulse 70 10/03/18 07:15 Resp 18 10/03/18 07:15 BP 120/65 10/03/18 07:15 Pulse Ox 96 10/03/18 07:15 Intake & Output 10/02/18 10/03/18 10/03/18 18:59 06:59 18:59 Intake Total 720 Balance 720 Intake: Oral 720 Other: # Voids 1 - Exam Head normocephalic Neck supple Lungs clear to auscultation bilaterally no wheezing or crackles Heart regular rate and rhythm S1-S2, no rub or gallop Abdomen is soft nontender nondistended positive bowel sounds no hepatosplenomegaly Extremities no edema Neuro alert and orientated to 3 - Labs CBC & Chem 7: 10/03/18 07:06 10/03/18 07:06 Labs: Abnormal Lab Results - Last 24 Hours (Table) 10/02/18 10/03/18 10/03/18 Range/Units 09:33 07:06 07:06 PT 13.8 H 15.6 H (9.0-12.0) sec INR 1.5 H 1.7 H (<1.2) Chloride 110 H (98-107) mmol/L Total Protein 6.0 L (6.3-8.2) g/dL Albumin 3.1 L (3.5-5.0) g/dL Assessment and Plan Assessment: 1. Chest pain. Troponin negative. EKG completed showing normal sinus rhythm. Chest x-ray completed showing cardiomegaly with mild central interstitial prominence correlate for mild venous congestion. Cardiology services and acute coronary event has been ruled out 2-D echo and stress test has been ordered patient to receive 15g of Coumadin today for subtherapeutic INR. Patient had positive stress test. Discussed with cardiology services. Patient will undergo cardiac catheterization today 2. Increased left lower extremity edema. Ultrasound negative for DVT in left lower extremity 3. History of AICD in 2006 4. History of mitral and aortic valve replacement in 2004 5. History of coronary artery disease. 6. Hyperlipidemia 7. nonischemic cardiomyopathy 8. essential hypertension DVT prophylaxis Coumadin. GI prophylaxis Protonix I performed an examination of the patient and discussed their management with the Nurse Practitioner. I have reviewed the Nurse Practitioner's notes and agree with the documented findings and plan of care
[2018-10-03] MEDS ORDERED: IV FLUID CONTINUATION 1,000 ML IV ONE (11:03)
[2018-10-03] MEDS ORDERED: MIDAZOLAM 2 MG/2 ML VIAL IV ONE (11:30)
[2018-10-03] MEDS ORDERED: LIDOCAINE 1% INJ 10MG/ML (20 ML MDV) SQ ONE (11:33)
[2018-10-03] MEDS: VERAPAMIL SYRINGE (5 MG/10 ML) INTRAARTER ONE ×2 (11:34→11:44)
[2018-10-03] MEDS ORDERED: HEPARIN SODIUM 1,000 UN/ML (10ML VL) IV ONE (11:35)
[2018-10-03] MEDS ORDERED: IOPAMIDOL-370 125ML BTL INJ ONE (11:44)
[2018-10-03] MEDS ORDERED: RX INFO: IV CONTRAST WAS GIVEN 1 EACH MISC MISCELLANE PRN (11:47)
[2018-10-03] MEDS ORDERED: SODIUM CHLORIDE 0.9% 1,000 ML IV SCH (12:00)
--- NOTE | 2018-10-03 12:29 | EST ---
EXERCISE STRESS AGE: 53 SEX: F HT: 5'9" WT: 307 PROTOCOL: Lexiscan Cardiolite Stress test HEART RATE REST: 68 BLOOD PRESSURE REST: 101/76 MAXIMUM HEART RATE ACHIEVED: 87 MAXIMUM BLOOD PRESSURE: 174/100 85% MPHR: 141 100% MPHR: 166 INDICATIONS: Chest pain. CLINICAL INFORMATION: STRESS DATA: Pretesting physical examination showed a heart rate of 68, pressure is 101/76 mmHg. Baseline EKG showed sinus mechanism. The patient was given 0.4 mg of Lexiscan over 15 seconds per protocol with max heart rate was 87 beats per minute. Maximum pressure was 101/31 seconds, 174/100 mmHg. Clinically. the patient did not have any symptoms of chest pain or discomfort and the EKG did not show any significant ST or T-wave abnormalities concerning for ischemia. CONCLUSION: 1. Nondiagnostic electrocardiogram stress testing in response to Lexiscan. 2. Please follow up on the Cardiolite portion on separate report from Radiology. MMODL / IJN: [id number] /
--- NOTE | 2018-10-03 12:58 | ECHOF ---
Referral Reason:cp MEASUREMENTS -------- HEIGHT: 175.3 cm WEIGHT: 141.1 kg BP: 120/74 IVSd: 1.1 cm (0.6 - 1.1) LVIDd: 6.7 cm (3.9 - 5.3) LVPWd: 1.1 cm (0.6 - 1.1) IVSs: 1.3 cm LVIDs: 6.3 cm LVPWs: 1.3 cm LAESV Index (A-L): 26.93 ml/m Ao Diam: 3.7 cm (2.0 - 3.7) MV E Jhoan: 1.55 m/s MV DecT: 365 ms MV A Jhoan: 1.02 m/s MV E/A Ratio: 1.52 RAP: 5.00 mmHg RVSP: 29.15 mmHg FINDINGS -------- Sinus rhythm. This was a technically difficult study with suboptimal views. The left ventricle is severely dilated. There is borderline concentric left ventricular hypertrophy . There is severe global hypokinesis of LV . Overall left ventricular systolic function is severe ly impaired with, an EF < 20%. The RV was not well visualized. Normal LA size by volume 22+/-6 ml/m2. The right atrium was not well visualized. There is no evidence of aortic regurgitation. There is no evidence of aortic stenosis. Normally f unctioning bioprosthetic valve. Mild mitral regurgitation is present. Mechanical MVR is well seated. Trace tricuspid regurgitation present. Right ventricular systolic pressure is normal at < 35 mmHg. There is no evidence of pulmonary hypertension. The pulmonic valve was not well visualized. The aortic root size is normal. Normal inferior vena cava with normal inspiratory collapse consistent with estimated right atrial pre ssure of 5 mmHg. There is no pericardial effusion. 3 ml of Lumason used CONCLUSIONS -------- 1. Sinus rhythm. 2. This was a technically difficult study with suboptimal views. 3. The left ventricle is severely dilated. 4. There is borderline concentric left ventricular hypertrophy. 5. There is severe global hypokinesis of LV . 6. Overall left ventricular systolic function is severely impaired with, an EF < 20%. 7. The RV was not well visualized. 8. Normal LA size by volume 22+/-6 ml/m2. 9. The right atrium was not well visualized. 10. Mechanical MVR is well seated. 11. 3 ml of Lumason used 12. Normally functioning bioprosthetic valve. 13. Mild mitral regurgitation is present. 14. Trace tricuspid regurgitation present. 15. Right ventricular systolic pressure is normal at < 35 mmHg. 16. There is no evidence of pulmonary hypertension. 17. The pulmonic valve was not well visualized. 18. The aortic root size is normal. 19. There is no pericardial effusion. CLINICAL INVESTIGATOR: Angelo Chowdhury RDCS
--- NOTE | 2018-10-03 15:00 | P.DS ---
Providers Date of admission: 10/02/18 14:22 Expected date of discharge: 10/03/18 Attending physician: Karly Kaplan Consults: 10/01/18 14:57 Consult Physician Urgent Consulting Provider: [facility] Consult Reason/Comments: Unstable angina Do you want consulting provider notified?: Yes Primary care physician: Karly [facility]aura [facility] Course: Discharge diagnosis 1. Chest pain. Troponin negative. EKG completed showing normal sinus rhythm. Chest x-ray completed showing cardiomegaly with mild central interstitial prominence correlate for mild venous congestion. Cardiology services and acute coronary event has been ruled out 2-D echo and stress test has been ordered patient to receive 15g of Coumadin today for subtherapeutic INR. Patient had positive stress test. Discussed with cardiology services. Patient underwent heart catheterization today. Cardiac cath was clean. Patient has been cleared for discharge once post cath protocol completed per cardiology services. No change to medications. patient to follow-up with cardiology services in 1 week 2. Increased left lower extremity edema. Ultrasound negative for DVT in left lower extremity 3. History of AICD in 2006 4. History of mitral and aortic valve replacement in 2004 5. History of coronary artery disease. 6. Hyperlipidemia 7. nonischemic cardiomyopathy 8. essential hypertension DVT prophylaxis Coumadin. GI prophylaxis Protonix Hospital course This is a 83-year-old female patient presented to the emergency room with complaints of chest pain. Patient states this afternoon patient experienced burning in center of chest with mild shortness breath. Patient does have a known past medical history of mitral and aortic valve replacement in 2004 in which she is on Coumadin. Patient also has a known past medical history of AICD in 2006, coronary artery disease, chest pain, heart failure, GERD, hyperlipidemia, myocardial infarction, syncope, recurrent UTIs and smoker. EKG completed showing normal sinus rhythm. Chest x-ray completed showing cardiomegaly and [id number] central interstitial prominence correlate for mild venous congestion. Patient did report that she has not been taking her Lasix or Imdur for the past month due to patient not having a refill. Troponin negative. INR subtherapeutic at 1.2. Patient is also complaining of increased left lower extremity edema. Will order Venous Doppler to rule out DVT. At this time patient is complaining of mild chest discomfort. Patient denies shortness of breath. Patient denies nausea vomiting or diarrhea. Patient denies any urinary burning or frequency. On 10/02/2018 patient is currently resting comfortably in bed. Patient received stress test today. Venous Doppler ultrasound completed showing negative for DVT in left lower extremity. This time patient denies chest pain or shortness breath. Patient denies nausea vomiting or diarrhea. Patient denies any urinary burning or frequency on 10/03/2018 patient is currently resting comfortably in bed. she did have a positive stress test patient to undergo cardiac catheterization cardiology services today. at this time patient denies chest pain or shortness breath. Patient denies nausea vomiting or diarrhea. Patient denies any urinary burning or frequency Patient to be discharged home after post cardiac cath care completed. No change in medications per cardiology services. Patient to follow-up outpatient with cardiology services. I performed an examination of the patient and discussed their management with the Nurse Practitioner. I have reviewed the Nurse Practitioner's notes and agree with the documented findings and plan of care Patient Condition at Discharge: Stable Plan - Discharge Summary Discharge Rx Participant: Yes New Discharge Prescriptions: Continue Pravastatin Sodium [Pravachol] 40 mg PO HS Lisinopril 40 mg PO DAILY #30 tablet Spironolactone [Aldactone] 25 mg PO DAILY #30 tab Loratadine [Claritin] 10 mg PO DAILY Aspirin EC [Ecotrin Low Dose] 81 mg PO DAILY Warfarin [Coumadin] 15 mg PO ERAZO Warfarin [Coumadin] 10 mg PO MOTUWETHFRSA Isosorbide Mononitrate ER [Imdur] 30 mg PO DAILY Nitroglycerin Sl Tabs [Nitrostat] 0.4 mg SUBLINGUAL Q5M PRN #30 tab PRN Reason: Chest Pain hydrALAZINE HCL [Apresoline] 25 mg PO BID HYDROcodone/APAP 7.5-325MG [[place] 7.5-325] 1 tab PO BID Carvedilol [Coreg] 25 mg PO BID Furosemide [Lasix] 20 mg PO DAILY Discharge Medication List Pravastatin Sodium [Pravachol] 40 mg PO HS 03/25/15 [History] Lisinopril 40 mg PO DAILY #30 tablet 03/27/15 [Rx] Spironolactone [Aldactone] 25 mg PO DAILY #30 tab 03/27/15 [Rx] Aspirin EC [Ecotrin Low Dose] 81 mg PO DAILY 06/27/16 [History] Loratadine [Claritin] 10 mg PO DAILY 06/27/16 [History] Warfarin [Coumadin] 10 mg PO MOTUWETHFRSA 05/01/17 [History] Warfarin [Coumadin] 15 mg PO ERAZO 05/01/17 [History] Isosorbide Mononitrate ER [Imdur] 30 mg PO DAILY 05/02/17 [History] Nitroglycerin Sl Tabs [Nitrostat] 0.4 mg SUBLINGUAL Q5M PRN #30 tab 05/03/17 [Rx ] HYDROcodone/APAP 7.5-325MG [[place] 7.5-325] 1 tab PO BID 11/13/17 [History] hydrALAZINE HCL [Apresoline] 25 mg PO BID 11/13/17 [History] Carvedilol [Coreg] 25 mg PO BID 10/01/18 [History] Furosemide [Lasix] 20 mg PO DAILY 10/01/18 [History] Follow up Appointment(s)/Referral(s): Karly Kaplan MD [Primary Care Provider] - 1-2 days Jose De Los Santos MD [STAFF PHYSICIAN] - 1 Week Activity/Diet/Wound Care/Special Instructions: Diet heart healthy Activity as tolerated Discharge Disposition: HOME SELF-CARE
[2018-10-03] MEDS: FUROSEMIDE 20 MG TAB PO SCH (15:37)
[2018-10-03 16:33] VITALS: BP 117/69; PULSE 80; TEMP 98.3
--- NOTE | 2018-10-03 18:57 | CC ---
CARDIAC CATHETERIZATION REPORT DATE OF SERVICE: 10/03/2018 PERFORMING PHYSICIAN: Harjit Danielle MD, editor sound. PROCEDURES PERFORMED: 1. Selective right and left coronary angiogram. 2. Left heart catheterization. INDICATION: This is a pleasant 53-year-old lady with known history of cardiomyopathy and valvular heart disease who presented to the hospital with chest discomfort and underwent a heart catheterization that showed anterior ischemia. Because of that, a heart catheterization was advised. APPROACH: Right radial artery. COMPLICATIONS: None. LEVEL OF SEDATION: Moderate, with sedation length of 14 minutes. PROCEDURE DESCRIPTION: After obtaining informed consent, the patient was brought to the cardiac propagator laborer. The right radial artery was cannulated using micropuncture technique and the micropuncture wire passed easily. Then I placed a 6-Kiswahili sheath in the right radial artery. After that I did selective right and left coronary angiogram using JR4 and JL3.5 catheters. Left heart catheterization was performed using the JR4 catheter which flipped into the LV and then I did pullback across the aortic valve. The procedure was completed without any complications. SELECTIVE CORONARY ANGIOGRAM: 1. The right coronary artery is a large-caliber vessel. It is a dominant vessel. It is angiographically normal. 2. The left main is normal. It into left circumflex, ramus intermedius and left anterior descending artery. The left circumflex is a large-caliber vessel. It is a nondominant vessel. The circumflex is angiographically normal. 3. The ramus intermedius is angiographically normal. 4. The LAD system is normal as well. It gives rise to a first diagonal branch and a second diagonal branch; both are angiographically normal. HEMODYNAMICS: The left ventricular end-diastolic pressure was 12 mmHg and no gradient was identified across the aortic valve. CONCLUSION: Normal coronary angiogram. POST-PROCEDURE MANAGEMENT: 1. Medical treatment. 2. Follow up with the patient. MMODL / IJN: [id number] /
--- NOTE | 2018-10-03 19:33 | LTR ---
October 03, 2018 To: Dr. Kaplan Re: Linnette Walker (1965) Dear Dr. Kaplan, Ms. Linnette Walker underwent a heart catheterization today that revealed normal coronaries. I want to thank you for allowing me to participate in her care. Please do not hesitate to call if you have any question or concerns. Sincerely, MD STEPHANY Manzanares / ILIANA: [id number] /
[2018-10-04] MEDS ORDERED: PANTOPRAZOLE 40 MG TABLET PO SCH (07:30)
[2018-10-06] MEDS ORDERED: WARFARIN 7.5 MG TAB PO SCH (18:00)
== END 2018-10-03 18:25 | disposition home or self-care (01) | DRG 287 ==
LOC: EC 12:49 → 1SOBS 14:57 → OBSVTOIN 10-02 14:22
PROVIDERS: ADMIT Internal Medicine; ATTEND Internal Medicine
PROC: B2111ZZ Fluoroscopy of Multiple Coronary Arteries using Low Osmolar Contrast (ICD-10-PCS; 2018-10-03)
PROC: 4A023N7 Measurement of Cardiac Sampling and Pressure, Left Heart, Percutaneous Approach (ICD-10-PCS; principal; 2018-10-03 11:00)
DX: R07.9 Chest pain, unspecified (principal); I42.0 Dilated cardiomyopathy; I50.22 Chronic systolic (congestive) heart failure; Z68.42 Body mass index [BMI] 45.0-49.9, adult; I11.0 Hypertensive heart disease with heart failure; I27.20 Pulmonary hypertension, unspecified; E66.01 Morbid (severe) obesity due to excess calories; I08.1 Rheumatic disorders of both mitral and tricuspid valves; E78.5 Hyperlipidemia, unspecified; I25.2 Old myocardial infarction; F17.200 Nicotine dependence, unspecified, uncomplicated; I44.7 Left bundle-branch block, unspecified; I48.91 Unspecified atrial fibrillation; K21.9 Gastro-esophageal reflux disease without esophagitis; R79.1 Abnormal coagulation profile; I25.10 Atherosclerotic heart disease of native coronary artery without angina pectoris; Z95.810 Presence of automatic (implantable) cardiac defibrillator; Z95.2 Presence of prosthetic heart valve; Z87.440 Personal history of urinary (tract) infections; Z79.01 Long term (current) use of anticoagulants; Z79.82 Long term (current) use of aspirin; Z79.899 Other long term (current) drug therapy; Z88.0 Allergy status to penicillin; Z91.013 Allergy to seafood; Z86.718 Personal history of other venous thrombosis and embolism; Z90.49 Acquired absence of other specified parts of digestive tract; Z82.0 Family history of epilepsy and other diseases of the nervous system; Z82.3 Family history of stroke; Z82.49 Family history of ischemic heart disease and other diseases of the circulatory system
CPT/HCPCS: 36415; 71046; 78452; 80053; 80061; 82550; 82553; 83735; 83880; 84484; 85025; 85610; 85730; 93005; 93017; 93306; 93458; 96360; 96361; 99285

== ENCOUNTER → 2019-04-10 | Outpatient (CLI) | payer MEDICARE ==
--- NOTE | 2019-04-10 14:03 | CT ---
EXAMINATION TYPE: CT brain wo con DATE OF EXAM: 04/10/2019 COMPARISON: None INDICATION: headaches from a fall 3 months ago DLP: 1129 mGycm, Automated exposure control for dose reduction was used. CONTRAST: None CT of the brain is performed utilizing 3 mm thick sections through the posterior fossa and 3 mm thick sections through the remaining calvarium. Study is performed within 24 hours of arrival to the hosp ital. No abnormal hyperdensity is present to suggest an acute intracranial hemorrhage. No mass lesion is evident. No acute infarcts are evident. Ventricles and sulci are appropriate for the patient age. Paranasal sinuses and mastoid air cells within the [id number] are clear. IMPRESSIONS: 1. No acute or subacute intracranial process
== END | disposition home or self-care (01) ==
LOC: RADCTMAIN 12:19
PROVIDERS: ATTEND Psychiatry & Neurology Neurology
DX: R51 Headache (principal); R42 Dizziness and giddiness; M54.5 Low back pain; Z88.0 Allergy status to penicillin; Z91.013 Allergy to seafood; Z91.81 History of falling
CPT/HCPCS: 70450

== ENCOUNTER 2019-11-09 09:53 | Observation (INO) | payer MEDICARE ==
[2019-11-09] MEDS ORDERED: NITROGLYCERIN SL TABS 0.4 MG TAB SUBLINGUAL STA ×3 (10:08)
[2019-11-09] MEDS ORDERED: ONDANSETRON 4 MG/2 ML VIAL IVP STA (10:08)
--- NOTE | 2019-11-09 10:11 | ED ---
General Adult HPI - General Chief complaint: Chest Pain Stated complaint: Chest pain Time Seen by Provider: 11/09/19 10:03 Source: patient, family, RN notes reviewed Mode of arrival: ambulatory Limitations: no limitations - History of Present Illness Initial comments: Patient is a pleasant 54-year-old female presenting to the emergency Department with complaints of chest discomfort. Symptoms have been waxing and waning over the past week, somewhat worse today. Discomfort is rated 8/10. Discomfort is sharp and anterior chest. Discomfort starts more on the right but does extend towards the left. Patient does feel short of breath. Patient does have associated nausea and did vomit. Patient did feel sweaty this morning. Patient does have history of similar symptoms previously associated with heart disease. Patient does have previous CABG. No leg pain or leg swelling. - Related Data Home Medications Medication Instructions Recorded Confirmed Pravastatin Sodium [Pravachol] 40 mg PO HS 03/25/15 10/01/18 Aspirin EC [Ecotrin Low Dose] 81 mg PO DAILY 06/27/16 10/01/18 Loratadine [Claritin] 10 mg PO DAILY 06/27/16 10/01/18 Warfarin [Coumadin] 10 mg PO MOTUWETHFRSA 05/01/17 10/01/18 Warfarin [Coumadin] 15 mg PO ERAZO 05/01/17 10/01/18 Isosorbide Mononitrate ER [Imdur] 30 mg PO DAILY 05/02/17 10/01/18 HYDROcodone/APAP 7.5-325MG [[place] 1 tab PO BID 11/13/17 10/01/18 7.5-325] hydrALAZINE HCL [Apresoline] 25 mg PO BID 11/13/17 10/01/18 Carvedilol [Coreg] 25 mg PO BID 10/01/18 10/01/18 Furosemide [Lasix] 20 mg PO DAILY 10/01/18 10/01/18 Previous Rx's Medication Instructions Recorded Lisinopril 40 mg PO DAILY #30 tablet 03/27/15 Spironolactone [Aldactone] 25 mg PO DAILY #30 tab 03/27/15 Nitroglycerin Sl Tabs [Nitrostat] 0.4 mg SUBLINGUAL Q5M PRN #30 tab 05/03/17 Allergies Allergy/AdvReac Type Severity Reaction Status Date / Time Penicillins Allergy Anaphylaxis Verified 11/09/19 10:00 shellfish derived [Shellfish] Allergy Anaphylaxis Verified 11/09/19 10:00 Review of Systems ROS Statement: Those systems with pertinent positive or pertinent negative responses have been documented in the HPI. ROS Other: All systems not noted in ROS Statement are negative. Constitutional: Denies: fever Eyes: Denies: eye pain ENT: Denies: ear pain Respiratory: Reports: dyspnea Cardiovascular: Reports: chest pain Endocrine: Denies: fatigue Gastrointestinal: Reports: nausea. Denies: abdominal pain Genitourinary: Denies: dysuria Musculoskeletal: Denies: back pain Skin: Denies: rash Neurological: Denies: headache Past Medical History Past Medical History: Coronary Artery Disease (CAD), Chest Pain / Angina, Heart Failure, GERD/Reflux, Hyperlipidemia, Myocardial Infarction (IA), Syncope Additional Past Medical History / Comment(s): Recent UTI, nonischemic cardiomyopathy, anemia in past, DVT, past stress test Last Myocardial Infarction Date:: 2007 History of Any Multi-Drug Resistant Organisms: None Reported Past Surgical History: AICD, Cholecystectomy, Pacemaker, Tubal Ligation Additional Past Surgical History / Comment(s): 2007 AICD at [facility], 08/01/[address] Pb aortic valve replaced Past Anesthesia/Blood Transfusion Reactions: No Reported Reaction Additional Past Anesthesia/Blood Transfusion Reaction / Comment(s): Pt has received blood in past without reaction. Type of Cardiac Device: AICD Device Placement Date:: 2006 Past Psychological History: No Psychological Hx Reported Smoking Status: Current every day smoker Past Alcohol Use History: None Reported Past Drug Use History: None Reported - Past Family History Father Family Medical History: Myocardial Infarction (IA) Additional Family Medical History / Comment(s): Father of a IA at the age of 60yrs. Mother Family Medical History: CVA/TIA, Seizure Disorder Additional Family Medical History / Comment(s): Mother had a CVA and seizures- had a trach and was comatose for 3 yrs before she . General Exam Limitations: no limitations General appearance: alert, in no apparent distress Head exam: Present: normocephalic Eye exam: Present: normal appearance Neck exam: Present: normal inspection Respiratory exam: Present: normal lung sounds bilaterally. Absent: chest wall tenderness Cardiovascular Exam: Present: regular rate, normal rhythm Expanded Peripheral pulses: 2+: Radial (R), Radial (L), Posterior Tibialis (R), Posterior Tibialis (L), Dorsalis Pedis (R), Dorsalis Pedis (L) GI/Abdominal exam: Present: soft. Absent: distended, tenderness Extremities exam: Present: normal inspection. Absent: pedal edema, calf tenderness Back exam: Present: normal inspection Neurological exam: Present: alert Psychiatric exam: Present: normal affect, normal mood Skin exam: Present: normal color Course Vital Signs 11/09/19 11/09/19 09:57 11:42 Temperature 98.1 F Pulse Rate 83 69 Respiratory 18 18 Rate Blood Pressure 142/90 102/67 O2 Sat by Pulse 97 96 Oximetry EKG Findings - EKG Comments: EKG Findings:: normal sinus rhythm at 80. VA 160. QRS 1:30. QT 412. QTC 475. Left axis. Nonspecific and ventricular block. Nonspecific T waves. Medical Decision Making - Medical Decision Making Patient reevaluated and near symptom-free following nitroglycerin. Patient updated on results and plan. Case discussed in detail with Dr. Kaplan, who will admit his patient and agrees with cardiology consult.he is aware of d-dimer and INR and troponin levels. Patient is near symptom-free following nitroglycerin with therapeutic INR - Lab Data Result diagrams: 11/09/19 10:10 11/09/19 10:10 Lab Results 11/09/19 11/09/19 11/09/19 Range/Units 10:10 10:10 10:10 WBC 7.7 (3.8-10.6) k/uL RBC 4.39 (3.80-5.40) m/uL Hgb 12.7 (11.4-16.0) gm/dL Hct 38.3 (34.0-46.0) % MCV 87.3 (80.0-100.0) fL MCH 29.0 (25.0-35.0) pg MCHC 33.2 (31.0-37.0) g/dL RDW 14.5 (11.5-15.5) % Plt Count 259 (150-450) k/uL Neutrophils % 65 % Lymphocytes % 25 % Monocytes % 6 % Eosinophils % 2 % Basophils % 0 % Neutrophils # 5.0 (1.3-7.7) k/uL Lymphocytes # 1.9 (1.0-4.8) k/uL Monocytes # 0.5 (0-1.0) k/uL Eosinophils # 0.1 (0-0.7) k/uL Basophils # 0.0 (0-0.2) k/uL PT 25.8 H (9.0-12.0) sec INR 2.7 H (<1.2) APTT 39.9 H (22.0-30.0) sec D-Dimer 0.76 H (<0.60) mg/L FEU Sodium 140 (137-145) mmol/L Potassium 3.9 (3.5-5.1) mmol/L Chloride 110 H (98-107) mmol/L Carbon Dioxide 25 (22-30) mmol/L Anion Gap 5 mmol/L BUN 8 (7-17) mg/dL Creatinine 0.82 (0.52-1.04) mg/dL Est GFR (CKD-EPI)AfAm >90 (>60 ml/min/1.73 sqM) Est GFR (CKD-EPI)NonAf 81 (>60 ml/min/1.73 sqM) Glucose 92 (74-99) mg/dL Calcium 9.2 (8.4-10.2) mg/dL Magnesium 1.8 (1.6-2.3) mg/dL Total Bilirubin 0.5 (0.2-1.3) mg/dL AST 23 (14-36) U/L ALT 13 (4-34) U/L Alkaline Phosphatase 75 (38-126) U/L Troponin I (0.000-0.034) ng/mL NT-Pro-B Natriuret Pep pg/mL Total Protein 6.9 (6.3-8.2) g/dL Albumin 3.7 (3.5-5.0) g/dL Amylase 37 (30-110) U/L Lipase 56 (23-300) U/L 11/09/19 11/09/19 Range/Units 10:10 10:10 WBC (3.8-10.6) k/uL RBC (3.80-5.40) m/uL Hgb (11.4-16.0) gm/dL Hct (34.0-46.0) % MCV (80.0-100.0) fL MCH (25.0-35.0) pg MCHC (31.0-37.0) g/dL RDW (11.5-15.5) % Plt Count (150-450) k/uL Neutrophils % % Lymphocytes % % Monocytes % % Eosinophils % % Basophils % % Neutrophils # (1.3-7.7) k/uL Lymphocytes # (1.0-4.8) k/uL Monocytes # (0-1.0) k/uL Eosinophils # (0-0.7) k/uL Basophils # (0-0.2) k/uL PT (9.0-12.0) sec INR (<1.2) APTT (22.0-30.0) sec D-Dimer (<0.60) mg/L FEU Sodium (137-145) mmol/L Potassium (3.5-5.1) mmol/L Chloride (98-107) mmol/L Carbon Dioxide (22-30) mmol/L Anion Gap mmol/L BUN (7-17) mg/dL Creatinine (0.52-1.04) mg/dL Est GFR (CKD-EPI)AfAm (>60 ml/min/1.73 sqM) Est GFR (CKD-EPI)NonAf (>60 ml/min/1.73 sqM) Glucose (74-99) mg/dL Calcium (8.4-10.2) mg/dL Magnesium (1.6-2.3) mg/dL Total Bilirubin (0.2-1.3) mg/dL AST (14-36) U/L ALT (4-34) U/L Alkaline Phosphatase (38-126) U/L Troponin I <0.012 (0.000-0.034) ng/mL NT-Pro-B Natriuret Pep 586 pg/mL Total Protein (6.3-8.2) g/dL Albumin (3.5-5.0) g/dL Amylase (30-110) U/L Lipase (23-300) U/L - Radiology Data Radiology results: image reviewed (This x-ray shows cardiomegaly with some vascular congestion.) Disposition Clinical Impression: Chest pain Disposition: ADMITTED IP TO THIS HOSP Is patient prescribed a controlled substance at d/c from ED?: No Referrals: Karly Kaplan MD [Primary Care Provider] - 1-2 days Decision Time: 12:17
[2019-11-09] MEDS: ASPIRIN 81 MG PO STA (10:44)
[2019-11-09 10:59] LABS: Basophils % (A) 0 %; Eosinophils # (A) 0.1 k/uL (0-0.7); Eosinophils % (A) 2 %; HCT 38.3 % (34.0-46.0); HGB 12.7 gm/dL (11.4-16.0); Lymphocytes # (A) 1.9 k/uL (1.0-4.8); Lymphocytes % (A) 25 %; MCHC 33.2 g/dL (31.0-37.0); MCV 87.3 fL (80.0-100.0); Mean Platelet Volume 8.5; Monocytes # (A) 0.5 k/uL (0-1.0); Monocytes % (A) 6 %; Neutrophils % (A) 65 %; Platelet Count 259 k/uL (150-450); RBC 4.39 m/uL (3.80-5.40); RDW 14.5 % (11.5-15.5); WBC 7.7 k/uL (3.8-10.6)
[2019-11-09 11:05] LABS: African American GFR (CKD) >90 (>60 ml/min/1.73 sqM); Anion Gap 5 mmol/L; Blood Urea Nitrogen 8 mg/dL (7-17); Calcium 9.2 mg/dL (8.4-10.2); Carbon Dioxide 25 mmol/L (22-30); Chloride 110 mmol/L (98-107); Glucose 92 mg/dL (74-99); Magnesium 1.8 mg/dL (1.6-2.3); Non-African American GFR(CKD) 81 (>60 ml/min/1.73 sqM); Potassium 3.9 mmol/L (3.5-5.1); Sodium 140 mmol/L (137-145)
[2019-11-09 11:06] LABS: ALT 13 U/L (4-34); AST 23 U/L (14-36); Albumin 3.7 g/dL (3.5-5.0); Alkaline Phosphatase 75 U/L (38-126); Amylase 37 U/L (30-110); Total Bilirubin 0.5 mg/dL (0.2-1.3); Total Protein 6.9 g/dL (6.3-8.2)
[2019-11-09 11:12] LABS: INR 2.7 (<1.2); Partial Thromboplastin Time 39.9 sec (22.0-30.0); Prothrombin Time 25.8 sec (9.0-12.0)
[2019-11-09 11:39] LABS: D-Dimer 0.76 mg/L FEU (<0.60)
--- NOTE | 2019-11-09 11:39 | XR ---
EXAMINATION TYPE: XR chest 2V DATE OF EXAM: 11/09/2019 HISTORY: Chest Pain. REFERENCE: Previous study dated 10/01/2018. FINDINGS: There has been a previous midline sternotomy. There is a unipolar pacemaker place on the le ft. The heart is enlarged. There is mild vascular congestion without jonnie edema. There is blunting of th e left CP angle. I could not exclude a small effusion. IMPRESSION: CARDIOMEGALY AND VASCULAR CONGESTION WITHOUT JONNIE EDEMA.
[2019-11-09] MEDS ORDERED: NITROGLYCERIN SL TABS 0.4 MG TAB SUBLINGUAL PRN ×2 (12:18→22:49)
[2019-11-09] MEDS: NITROGLYCERIN OINT 1 INCH/GM PACKET TOPICAL SCH ×2 (18:07→23:28)
[2019-11-09] MEDS ORDERED: HYDROcodone/APAP 7.5-325MG 1 EACH TAB PO PRN (22:49)
[2019-11-09] MEDS ORDERED: WARFARIN 10 MG TAB PO ONE (23:00)
[2019-11-09] MEDS ORDERED: PRAVASTATIN SODIUM 40 MG TAB PO SCH (23:00)
[2019-11-09] MEDS: CARVEDILOL 12.5 MG TAB PO SCH (23:23)
[2019-11-09] MEDS: hydrALAZINE HCL 25 MG TAB PO SCH (23:24)
[2019-11-10] MEDS: NITROGLYCERIN OINT 1 INCH/GM PACKET TOPICAL SCH (04:05)
[2019-11-10 06:56] LABS: Cholesterol 152 mg/dL (<200); HDL Cholesterol 41 mg/dL (40-60); LDL Cholesterol,Calculated 93 mg/dL (0-99); Triglycerides 92 mg/dL (<150)
[2019-11-10 07:30] LABS: INR 2.5 (<1.2); Prothrombin Time 24.6 sec (9.0-12.0)
[2019-11-10 08:34] VITALS: RESP 18
[2019-11-10] MEDS ORDERED: ISOSORBIDE MONONITRATE ER 30 MG TAB.ER.24H PO SCH (09:00)
[2019-11-10] MEDS ORDERED: SPIRONOLACTONE 25 MG TAB PO SCH (09:00)
[2019-11-10] MEDS ORDERED: ASPIRIN 325 MG TAB PO SCH (09:00)
[2019-11-10] MEDS ORDERED: LISINOPRIL 20 MG TAB PO SCH (09:00)
[2019-11-10] MEDS ORDERED: ASPIRIN 81 MG PO SCH (09:00)
[2019-11-10] MEDS: hydrALAZINE HCL 25 MG TAB PO SCH (09:35)
[2019-11-10] MEDS: CARVEDILOL 12.5 MG TAB PO SCH (09:35)
--- NOTE | 2019-11-10 10:29 | P.HPIM ---
History of Present Illness H&P Date: 11/10/19 Chief Complaint: Chest pain Is a 54-year-old female patient who presented to the hospital with complaints of chest pain has been intermittently occurring over the past week. Patient reports associated nausea vomiting and shortness of breath with chest pain occurring. Patient has extensive cardiac history including coronary artery bypass graft surgery in 2004. Patient also has a history of mitral and aortic valve replacement and AICD placement in 2006 for nonischemic cardiomyopathy. Additional medical history includes hyperlipidemia, nicotine dependence and hypertension. Chest x-ray completed showing cardiomegaly and vascular congestion without jonnie edema. EKG completed showing normal sinus rhythm, nonspecific intraventricular block, nonspecific T-wave abnormality. Abnormal EKG. INR 2.7 on admission. Patient is maintained on Coumadin. BNP 586. Amylase and lipase within normal limits. Cardiology services have been consulted. AICD check has been ordered. Last cardiac cath September 2018 showing normal coronary angiogram. This time patient denies any chest pain or shortness of breath. Patient denies nausea vomiting or diarrhea. Patient denies any urinary burning or frequency. Review of Systems Please refer to HPI otherwise unremarkable Past Medical History Past Medical History: Coronary Artery Disease (CAD), Chest Pain / Angina, Heart Failure, GERD/Reflux, Hyperlipidemia, Myocardial Infarction (CT), Syncope Additional Past Medical History / Comment(s): Recent UTI, nonischemic cardiomyopathy, anemia in past, DVT, past stress test Last Myocardial Infarction Date:: 2007 History of Any Multi-Drug Resistant Organisms: None Reported Past Surgical History: AICD, Cholecystectomy, Heart Catheterization, Pacemaker, Tubal Ligation Additional Past Surgical History / Comment(s): 2007 AICD at [facility], 08/01/05 mitral valve repair [address]. Pb aortic valve replaced Past Anesthesia/Blood Transfusion Reactions: No Reported Reaction Additional Past Anesthesia/Blood Transfusion Reaction / Comment(s): Pt has received blood in past without reaction. Type of Cardiac Device: AICD Device Placement Date:: 2006 Past Psychological History: No Psychological Hx Reported Additional Psychological History / Comment(s): Pt resides with significant other. She does not drive-her significant other takes her to [employer]. Smoking Status: Current every day smoker Past Alcohol Use History: None Reported Additional Past Alcohol Use History / Comment(s): Pt started smoking in 1990 a pack will last 3 days Past Drug Use History: None Reported - Past Family History Father Family Medical History: Myocardial Infarction (CT) Additional Family Medical History / Comment(s): Father of a [place] at the age of 60yrs. Mother Family Medical History: CVA/TIA, Seizure Disorder Additional Family Medical History / Comment(s): Mother had a CVA and seizures- had a trach and was comatose for 3 yrs before she . Medications and Allergies Home Medications Medication Instructions Recorded Confirmed Type Pravastatin Sodium [Pravachol] 40 mg PO HS 03/25/15 11/09/19 History Lisinopril 40 mg PO DAILY #30 tablet 03/27/15 11/09/19 Rx Spironolactone [Aldactone] 25 mg PO DAILY #30 tab 03/27/15 11/09/19 Rx Aspirin EC [Ecotrin Low Dose] 81 mg PO DAILY 06/27/16 11/09/19 History Warfarin [Coumadin] 5 mg PO MO 05/01/17 11/09/19 History Warfarin [Coumadin] 10 mg PO SUTUWETHFRSA 05/01/17 11/09/19 History Isosorbide Mononitrate ER [Imdur] 30 mg PO DAILY 05/02/17 11/09/19 History Nitroglycerin Sl Tabs [Nitrostat] 0.4 mg SUBLINGUAL Q5M PRN #30 tab 05/03/17 11/09/19 Rx HYDROcodone/APAP 7.5-325MG [[place] 1 tab PO BID PRN 11/13/17 11/09/19 History 7.5-325] hydrALAZINE HCL [Apresoline] 25 mg PO BID 11/13/17 11/09/19 History Carvedilol [Coreg] 25 mg PO BID 10/01/18 11/09/19 History Allergies Allergy/AdvReac Type Severity Reaction Status Date / Time Penicillins Allergy Anaphylaxis Verified 11/09/19 12:34 shellfish derived [Shellfish] Allergy Anaphylaxis Verified 11/09/19 12:34 Physical Exam Vitals: Vital Signs Temp Pulse Pulse Resp BP BP Pulse Ox 11/10/19 09:29 72 11/10/19 08:00 98.1 F 46 L 18 109/73 98 11/10/19 04:00 98.2 F 74 16 94/62 99 11/10/19 03:58 16 11/10/19 00:00 69 16 11/09/19 23:43 97.5 F L 69 16 99/60 98 11/09/19 19:55 72 19 11/09/19 19:28 98.6 F 72 16 115/76 11/09/19 13:25 98.2 F 64 18 103/71 98 11/09/19 13:11 98.5 F 64 18 109/80 96 11/09/19 13:08 98.5 F 64 18 109/80 96 11/09/19 11:42 69 18 102/67 96 Intake and Output 11/09/19 11/10/19 11/10/19 22:59 06:59 14:59 Intake Total 240 Balance 240 Intake: Oral 240 Other: Voiding Method Toilet # Voids 1 1 Head normocephalic Neck supple Lungs clear to auscultation bilaterally no wheezing or crackles Heart regular rate and rhythm S1-S2, no rub or gallop Abdomen is soft nontender nondistended positive bowel sounds no hepatosplenomegaly Extremities no edema Neuro alert and orientated to 3 AICD implant Results CBC & Chem 7: 11/09/19 10:10 11/09/19 10:10 Labs: Abnormal Lab Results - Last 24 Hours (Table) 11/09/19 11/09/19 11/10/19 Range/Units 10:10 10:10 07:11 PT 25.8 H 24.6 H (9.0-12.0) sec INR 2.7 H 2.5 H (<1.2) APTT 39.9 H (22.0-30.0) sec D-Dimer 0.76 H (<0.60) mg/L FEU Chloride 110 H (98-107) mmol/L Thrombosis Risk Factor Assmnt - Choose All That Apply Any of the Below Risk Factors Present?: Yes Each Factor Represents 1 point: Age 41-60 years, Obesity (BMI >25) Other Risk Factors: Yes Each Risk Factor Represents 3 Points: History of DVT/PE Thrombosis Risk Factor Assessment Total Risk Factor Score: 5 Thrombosis Risk Factor Assessment Level: High Risk Assessment and Plan Assessment: 1. Chest pain. Troponins negative 3. Chest x-ray completed showing cardiomegaly and vascular congestion without jonnie edema. EKG completed showing normal sinus rhythm nonspecific intraventricular block nonspecific T-wave abnormality. Abnormal EKG. Cardiology services have been consulted. AICD check has been ordered 2. History of coronary artery bypass graft surgery in which really were valve replacement 2004. Patient is maintained on Coumadin. Current INR 2.5 3. History of nonischemic cardiomyopathy with AICD placement 2006. AICD check has been ordered 4. Hyperlipidemia. Patient maintained on statin 5. History of cholecystectomy 6. Nicotine dependence. Patient educated greater than 3 minutes smoking cessation. Nicotine patch ordered 7. Essential hypertension. Home meds resumed DVT prophylaxis Coumadin. GI prophylaxis Protonix cardiology services have been consulted Time with Patient: Greater than 30 (Greater than 60% of the total time spent in counseling and coordination of care. I performed an examination of the patient and discussed their management with the Nurse Practitioner. I have reviewed the Nurse Practitioner's notes and agree with the documented findings and plan of care)
[2019-11-10 11:38] VITALS: BP 117/78; PULSE 62; TEMP 98
--- NOTE | 2019-11-10 12:01 | P.CRDCN ---
History of Present Illness History of present illness: HISTORY OF PRESENTING ILLNESS This is a pleasant 54-year-old female past medical history significant for dilated cardiomyopathy, chronic systolic heart failure, hypertension, dyslipidemia, valvular heart disease s/p repair and AICD placement. She follows in the office with Dr. De Los Santos. We have been asked to see in consultation for chest pain. She states she has been suffering from a GI illness with vomiting and diarrhea that resolved last week around Sunday/Sunday. After she started feeling better she wanted to clean her house. She moved some furniture on Sunday and did a lot cleaning. Sunday night when she laid down to sleep she started feeling a achy pain on the right side of her chest that radiated across to the left and in the middle. This was worsened when she would move her torso or lift her arms. She felt some associated shortness of breath at times as well and had a had time sleeping that night due to the discomfort. Throughout the rest of the week and weekend she continued to have intermittent similar pains. There was no exertional chest p ain, she denies dizziness or palpitations. She underwent cardiac catheterization 09/2018 revealing normal coronary arteries with no obstructive disease. Last echo in 2016 revealed impaired LV systolic function, normally functioning mechanical mitral valve and normally functioning bio-prosthetic aor tic valve. DIAGNOSTICS EKG reveals sinus mechanism with left bundle branch block and non-specific changes. Chest xray reveals mild vascular congestion with no pulmonary edema. Laboratory reviewed, CBC unremarkable, d-dimer 0.76, INR 2.5, sodium 140, potassium 3.9, creatinine 0.82, cardiac enzymes negative x3, NTproBNP 586, LDL 93. Current cardiac medications include aspirin 81 mg daily, coumadin, coreg 25 mg BID, imdur 30 mg daily, lisinopril 40 mg daily, pravastatin 40 mg daily, aldactone 25 mg daily and hydralazine 25 mg TID. REVIEW OF SYSTEMS At the time of my exam: CONSTITUTIONAL: Denies fever or chills. CARDIOVASCULAR: Denies chest pain, shortness of breath, orthopnea, PND or palpit ations. RESPIRATORY: Denies cough. GASTROINTESTINAL: Denies abdominal pain, diarrhea, constipation, nausea or vomiting. MUSCULOSKELETAL: Denies myalgias. NEUROLOGIC: Denies numbness, tingling or weakness. ENDOCRINE: Denies fatigue, weight change, polydipsia or polyurina. GENITOURINARY: Denies burning, hematuria or urgency with micturation. HEMATOLOGIC: Denies history of anemia or bleeding. PHYSICAL EXAMINATION Blood pressure blood pressure 109/73 heart rate 72 afebrile and maintaining oxygen saturation on room air. CONSTITUTIONAL: No apparent distress. Obese. HEENT: Head is normocephalic. Pupils are equal, round. Sclerae anicteric. Mucous membranes of the mouth are moist. No JVD. No carotid bruit. CHEST EXAMINATION: Lungs are clear to auscultation. No chest wall tenderness is noted on palpation or with deep breathing. HEART EXAMINATION: Regular rate and rhythm. S1, S2 heard. No murmurs, gallops or rub. Distant heart sounds. ABDOMEN: Soft, nontender. Positive bowel sounds. EXTREMITIES: 2+ peripheral pulses, no lower extremity edema and no calf tenderness. NEUROLOGIC EXAMINATION: Patient is awake, alert and oriented x3. ASSESSMENT Chest pain, atypical. An acute event has been ruled out. Dilated cardiopathy s/p AICD placement Chronic systolic heart failure, EF 25% Valvular heart disease s/p mitral and aortic valve repair and replacement maintained on coumadin Mechanical mitral valve maintained on coumadin Hypertension Dyslipidemia Chronic nicotine dependence PLAN An acute coronary event has been ruled out. AICD interrogation unremarkable for an arrhythmia surrounding her symptoms. Stable from a cardiac perspective. Follow up with Dr. De Los Santos upon discharge. Thank you kindly for this consultation. Nurse Practitioner note has been reviewed, I agree with a documented findings and plan of care. Patient was seen and examined. Past Medical History Past Medical History: Coronary Artery Disease (CAD), Chest Pain / Angina, Heart Failure, GERD/Reflux, Hyperlipidemia, Myocardial Infarction ([place]), Syncope Additional Past Medical History / Comment(s): Recent UTI, nonischemic cardiomyopathy, anemia in past, DVT, past stress test Last Myocardial Infarction Date:: 2007 History of Any Multi-Drug Resistant Organisms: None Reported Past Surgical History: AICD, Cholecystectomy, Heart Catheterization, Pacemaker, Tubal Ligation Additional Past Surgical History / Comment(s): 2006 AICD at [facility], 08/01/05 mitral valve repair and St. Pb aortic valve replaced Past Anesthesia/Blood Transfusion Reactions: No Reported Reaction Additional Past Anesthesia/Blood Transfusion Reaction / Comment(s): Pt has received blood in past without reaction. Type of Cardiac Device: AICD Device Placement Date:: 2006 Past Psychological History: No Psychological Hx Reported Additional Psychological History / Comment(s): Pt resides with significant other. She does not drive-her significant other takes her to [employer]. Smoking Status: Current every day smoker Past Alcohol Use History: None Reported Additional Past Alcohol Use History / Comment(s): Pt started smoking in 1990 a pack will last 3 days Past Drug Use History: None Reported - Past Family History Father Family Medical History: Myocardial Infarction ([place]) Additional Family Medical History / Comment(s): Father of a [place] at the age of 60yrs. Mother Family Medical History: CVA/TIA, Seizure Disorder Additional Family Medical History / Comment(s): Mother had a CVA and seizures- had a trach and was comatose for 3 yrs before she . Medications and Allergies Home Medications Medication Instructions Recorded Confirmed Type Pravastatin Sodium [Pravachol] 40 mg PO HS 03/25/15 11/09/19 History Lisinopril 40 mg PO DAILY #30 tablet 03/27/15 11/09/19 Rx Spironolactone [Aldactone] 25 mg PO DAILY #30 tab 03/27/15 11/09/19 Rx Aspirin EC [Ecotrin Low Dose] 81 mg PO DAILY 06/27/16 11/09/19 History Warfarin [Coumadin] 5 mg PO MO 05/01/17 11/09/19 History Warfarin [Coumadin] 10 mg PO SUTUWETHFRSA 05/01/17 11/09/19 History Isosorbide Mononitrate ER [Imdur] 30 mg PO DAILY 05/02/17 11/09/19 History Nitroglycerin Sl Tabs [Nitrostat] 0.4 mg SUBLINGUAL Q5M PRN #30 tab 05/03/17 11/09/19 Rx HYDROcodone/APAP 7.5-325MG [[place] 1 tab PO BID PRN 11/13/17 11/09/19 History 7.5-325] hydrALAZINE HCL [Apresoline] 25 mg PO BID 11/13/17 11/09/19 History Carvedilol [Coreg] 25 mg PO BID 10/01/18 11/09/19 History Allergies Allergy/AdvReac Type Severity Reaction Status Date / Time Penicillins Allergy Anaphylaxis Verified 11/09/19 12:34 shellfish derived [Shellfish] Allergy Anaphylaxis Verified 11/09/19 12:34 Physical Exam Vitals: Vital Signs Temp Pulse Pulse Resp BP BP Pulse Ox 11/10/19 04:00 98.2 F 74 16 94/62 99 11/10/19 03:58 16 11/10/19 00:00 69 16 11/09/19 23:43 97.5 F L 69 16 99/60 98 11/09/19 19:55 72 19 11/09/19 19:28 98.6 F 72 16 115/76 11/09/19 13:25 98.2 F 64 18 103/71 98 11/09/19 13:11 98.5 F 64 18 109/80 96 11/09/19 13:08 98.5 F 64 18 109/80 96 11/09/19 11:42 69 18 102/67 96 11/09/19 09:57 98.1 F 83 18 142/90 97 Intake and Output 11/09/19 11/10/19 11/10/19 22:59 06:59 14:59 Intake Total 240 Balance 240 Intake: Oral 240 Other: # Voids 1 1 Results 11/09/19 10:10 11/09/19 10:10 Cardiac Enzymes 11/09/19 11/09/19 11/09/19 Range/Units 10:10 10:10 15:38 AST 23 (14-36) U/L Troponin I <0.012 <0.012 (0.000-0.034) ng/mL 11/09/19 Range/Units 22:27 AST (14-36) U/L Troponin I 0.024 (0.000-0.034) ng/mL Coagulation 11/09/19 11/10/19 Range/Units 10:10 07:11 PT 25.8 H 24.6 H (9.0-12.0) sec APTT 39.9 H (22.0-30.0) sec Lipids 11/10/19 Range/Units 06:12 Triglycerides 92 (<150) mg/dL Cholesterol 152 (<200) mg/dL HDL Cholesterol 41 (40-60) mg/dL CBC 11/09/19 Range/Units 10:10 WBC 7.7 (3.8-10.6) k/uL RBC 4.39 (3.80-5.40) m/uL Hgb 12.7 (11.4-16.0) gm/dL Hct 38.3 (34.0-46.0) % Plt Count 259 (150-450) k/uL Comprehensive Metabolic Panel 11/09/19 Range/Units 10:10 Sodium 140 (137-145) mmol/L Potassium 3.9 (3.5-5.1) mmol/L Chloride 110 H (98-107) mmol/L Carbon Dioxide 25 (22-30) mmol/L BUN 8 (7-17) mg/dL Creatinine 0.82 (0.52-1.04) mg/dL Glucose 92 (74-99) mg/dL Calcium 9.2 (8.4-10.2) mg/dL AST 23 (14-36) U/L ALT 13 (4-34) U/L Alkaline Phosphatase 75 (38-126) U/L Total Protein 6.9 (6.3-8.2) g/dL Albumin 3.7 (3.5-5.0) g/dL Current Medications Generic Name Dose Route Start Last Admin Trade Name Freq PRN Reason Stop Dose Admin Hydrocodone Bitart/Acetaminophen 1 each 11/09/19 22:49 [place] 7.5-325 PO BID PRN Pain Aspirin 81 mg 11/10/19 09:00 Aspirin PO DAILY [facility] Carvedilol 25 mg 11/09/19 23:00 11/09/19 23:23 Coreg PO 25 mg AC-BID EVA Administration Hydralazine HCl 25 mg 11/09/19 23:00 11/09/19 23:24 Apresoline PO 25 mg BID EVA Administration Isosorbide Mononitrate 30 mg 11/10/19 09:00 Imdur PO DAILY EVA Lisinopril 40 mg 11/10/19 09:00 Zestril PO DAILY EVA Nitroglycerin 0.4 mg 11/09/19 12:18 Nitrostat SUBLINGUAL Q5M PRN Chest Pain Nitroglycerin 1 inch 11/09/19 18:00 11/10/19 04:05 Nitro-Bid Oint TOPICAL Not Given Q6HR EVA Pravastatin Sodium 40 mg 11/09/19 23:00 11/09/19 23:24 Pravachol PO 40 mg HS EVA Administration Sodium Chloride 10 ml 11/09/19 21:00 11/09/19 23:24 Saline Flush IV 10 ml BID EVA Administration Spironolactone 25 mg 11/10/19 09:00 Aldactone PO DAILY [facility] Warfarin Sodium 5 mg 11/10/19 18:00 Coumadin PO Mo@1800 [facility] Warfarin Sodium 10 mg 11/11/19 18:00 Coumadin PO [id number]@1800 [facility] Intake and Output 11/09/19 11/10/19 11/10/19 22:59 06:59 14:59 Intake Total 240 Balance 240 Intake: Oral 240 Other: # Voids 1 1 11/09/19 10:10 11/09/19 10:10
--- NOTE | 2019-11-10 13:45 | P.DS ---
Providers Date of admission: 11/09/19 12:18 Expected date of discharge: 11/10/19 Attending physician: Karly Kaplan Consults: 11/09/19 12:18 Consult Physician Urgent Consulting Provider: Manjeet Patel Consult Reason/Comments: cp Do you want consulting provider notified?: Yes Primary care physician: Karly Rosaura [facility] Course: Discharge diagnosis 1. Chest pain. Troponins negative 3. Chest x-ray completed showing cardiomegaly and vascular congestion without jonnie edema. EKG completed showing normal sinus rhythm nonspecific intraventricular block nonspecific T-wave abnormality. Abnormal EKG. Cardiology services have been consulted. Per nursing staff AICD interrogation completed and reviewed per cardiology. Per cardiology and acute coronary event has been ruled out AICD interrogation unremarkable for any arrhythmia surrounding her symptoms stable for discharge from cardiac perspective. Patient to follow-up with Dr. De Los Santos upon discharge 2. History of coronary artery bypass graft surgery in which really were valve replacement 2004. Patient is maintained on Coumadin. Current INR 2.5. Patient will be DC'd home back on home Coumadin dose 3. History of nonischemic cardiomyopathy with AICD placement 2006. 4. Hyperlipidemia. Patient maintained on statin 5. History of cholecystectomy 6. Nicotine dependence. Patient educated greater than 3 minutes smoking cessation. Nicotine patch ordered 7. Essential hypertension. Home meds resumed Hospital course Is a 54-year-old female patient who presented to the hospital with complaints of chest pain has been intermittently occurring over the past week. Patient reports associated nausea vomiting and shortness of breath with chest pain occurring. Patient has extensive cardiac history including coronary artery bypass graft surgery in 2004. Patient also has a history of mitral and aortic valve replacement and AICD placement in 2006 for nonischemic cardiomyopathy. Additional medical history includes hyperlipidemia, nicotine dependence and hypertension. Chest x-ray completed showing cardiomegaly and vascular congestion without jonnie edema. EKG completed showing normal sinus rhythm, nonspecific intraventricular block, nonspecific T-wave abnormality. Abnormal EKG. INR 2.7 on admission. Patient is maintained on Coumadin. BNP 586. Amylase and lipase within normal limits. Cardiology services have been consulted. AICD check has been ordered. Last cardiac cath September 2018 showing normal coronary angiogram. This time patient denies any chest pain or shortness of breath. Patient denies nausea vomiting or diarrhea. Patient denies any urinary burning or frequency. On 11/10/2019 patient's alert and oriented 3. Patient is very eager to go home. Patient did undergo AICD during to irrigation and unremarkable for an arrhythmia surrounding her symptoms per cardiology. Per cardiology and acute coronary event has been ruled out and patient has been cleared for discharge. Patient denies chest pain or shortness of breath. Patient denies nausea vomiting or diarrhea. Patient denies any urinary burning or frequency. Patient will be resumed on home medications upon discharge and follow-up with PCP for further management. I performed an examination of the patient and discussed their management with the Nurse Practitioner. I have reviewed the Nurse Practitioner's notes and agree with the documented findings and plan of care Patient Condition at Discharge: Stable Plan - Discharge Summary New Discharge Prescriptions: Continue Pravastatin Sodium [Pravachol] 40 mg PO HS Lisinopril 40 mg PO DAILY #30 tablet Spironolactone [Aldactone] 25 mg PO DAILY #30 tab Aspirin EC [Ecotrin Low Dose] 81 mg PO DAILY Warfarin [Coumadin] 5 mg PO MO Warfarin [Coumadin] 10 mg PO SUTUWETHFRSA Isosorbide Mononitrate ER [Imdur] 30 mg PO DAILY Nitroglycerin Sl Tabs [Nitrostat] 0.4 mg SUBLINGUAL Q5M PRN #30 tab PRN Reason: Chest Pain hydrALAZINE HCL [Apresoline] 25 mg PO BID HYDROcodone/APAP 7.5-325MG [[place] 7.5-325] 1 tab PO BID PRN PRN Reason: Pain Carvedilol [Coreg] 25 mg PO BID Discharge Medication List Pravastatin Sodium [Pravachol] 40 mg PO HS 03/25/15 [History] Lisinopril 40 mg PO DAILY #30 tablet 03/27/15 [Rx] Spironolactone [Aldactone] 25 mg PO DAILY #30 tab 03/27/15 [Rx] Aspirin EC [Ecotrin Low Dose] 81 mg PO DAILY 06/27/16 [History] Warfarin [Coumadin] 5 mg PO MO 05/01/17 [History] Warfarin [Coumadin] 10 mg PO SUTUWETHFRSA 05/01/17 [History] Isosorbide Mononitrate ER [Imdur] 30 mg PO DAILY 05/02/17 [History] Nitroglycerin Sl Tabs [Nitrostat] 0.4 mg SUBLINGUAL Q5M PRN #30 tab 05/03/17 [Rx] HYDROcodone/APAP 7.5-325MG [[place] 7.5-325] 1 tab PO BID PRN 11/13/17 [History] hydrALAZINE HCL [Apresoline] 25 mg PO BID 11/13/17 [History] Carvedilol [Coreg] 25 mg PO BID 10/01/18 [History] Follow up Appointment(s)/Referral(s): Karly Kaplan MD [Primary Care Provider] - 1-2 days Jose De Los Santos MD [STAFF PHYSICIAN] - 1 Week (office will call patient when they have an appointment date and time. ) Discharge Disposition: HOME SELF-CARE
[2019-11-10] MEDS ORDERED: WARFARIN 5 MG TAB PO SCH (18:00)
[2019-11-11] MEDS ORDERED: PANTOPRAZOLE 40 MG TABLET PO SCH (07:30)
[2019-11-11] MEDS ORDERED: NICOTINE 14MG/24HR PATCH TRANSDERM SCH (09:00)
[2019-11-11] MEDS ORDERED: WARFARIN 10 MG TAB PO SCH (18:00)
== END 2019-11-10 14:00 | disposition home or self-care (01) ==
LOC: EC 09:53 → 1SOBS 12:18
PROVIDERS: ADMIT Internal Medicine; ATTEND Internal Medicine
DX: R07.89 Other chest pain (principal); R11.2 Nausea with vomiting, unspecified; R06.02 Shortness of breath; I45.4 Nonspecific intraventricular block; R94.31 Abnormal electrocardiogram [ECG] [EKG]; Z95.1 Presence of aortocoronary bypass graft; I42.0 Dilated cardiomyopathy; E78.5 Hyperlipidemia, unspecified; I11.0 Hypertensive heart disease with heart failure; I50.22 Chronic systolic (congestive) heart failure; I25.10 Atherosclerotic heart disease of native coronary artery without angina pectoris; K21.9 Gastro-esophageal reflux disease without esophagitis; I44.7 Left bundle-branch block, unspecified; I25.2 Old myocardial infarction; F17.210 Nicotine dependence, cigarettes, uncomplicated; E66.9 Obesity, unspecified; Z68.42 Body mass index [BMI] 45.0-49.9, adult; Z95.810 Presence of automatic (implantable) cardiac defibrillator; Z90.49 Acquired absence of other specified parts of digestive tract; Z79.899 Other long term (current) drug therapy; Z79.82 Long term (current) use of aspirin; Z79.01 Long term (current) use of anticoagulants; Z88.0 Allergy status to penicillin; Z91.013 Allergy to seafood; Z87.440 Personal history of urinary (tract) infections; Z86.2 Personal history of diseases of the blood and blood-forming organs and certain disorders involving the immune mechanism; Z86.718 Personal history of other venous thrombosis and embolism; Z98.51 Tubal ligation status; Z98.890 Other specified postprocedural states; Z95.2 Presence of prosthetic heart valve; Z95.4 Presence of other heart-valve replacement; Z82.49 Family history of ischemic heart disease and other diseases of the circulatory system; Z82.3 Family history of stroke; Z82.0 Family history of epilepsy and other diseases of the nervous system; Z84.89 Family history of other specified conditions
CPT/HCPCS: 93005 ×2; 96374; 99285; 36415; 85379; 83880; 80061; 80053; 82150; 83690; 83735; 84484; 85025; 85610 ×2; 85730; 71046; G0378 ×2; J2405

== ENCOUNTER → 2019-12-03 | Outpatient (CLI) | payer MEDICARE ==
--- NOTE | 2019-12-04 14:29 | MM ---
Reason for exam: screening (asymptomatic). Last mammogram was performed 1 year and 2 months ago. History: Patient is postmenopausal. Physical Findings: A clinical breast exam by your physician is recommended on an annual basis and results should be correlated with mammographic findings. MG Screening Mammo w CAD Bilateral CC and MLO view(s) were taken. Prior study comparison: September 30, 2018, bilateral MG screening mammo w CAD. February 23, 2017, mammogram, performed at [facility]. There are scattered fibroglandular densities. Left cardiac device partially obscures the axilla. ASSESSMENT: Negative, BI-RAD 1 RECOMMENDATION: Routine screening mammogram of both breasts in 1 year.
== END | disposition home or self-care (01) ==
LOC: RADMAMWWP 08:56
PROVIDERS: ATTEND Internal Medicine
DX: Z12.31 Encounter for screening mammogram for malignant neoplasm of breast (principal); Z95.810 Presence of automatic (implantable) cardiac defibrillator
CPT/HCPCS: 77067

== ENCOUNTER → 2020-04-19 | Outpatient (CLI) | payer MEDICARE ==
--- NOTE | 2020-04-19 11:20 | US ---
EXAMINATION TYPE: US venous doppler duplex LE LT DATE OF EXAM: 04/19/2020 11:10 AM COMPARISON: None CLINICAL HISTORY: 54-year-old female M79.661 pain, R22.41 swelling. SIDE PERFORMED: Left TECHNIQUE: The lower extremity deep venous system is examined utilizing real time linear array sonog chiqui with graded compression, doppler sonography and color-flow sonography. FINDINGS: VESSELS IMAGED: External Iliac Vein (EIV) Common Femoral Vein Deep Femoral Vein Greater Saphenous Vein * Femoral Vein Popliteal Vein Small Saphenous Vein * Proximal Calf Veins (* superficial vessels) Left Leg: Negative for DVT IMPRESSION: No evidence for DVT within the left lower extremity imaged from the groin to the upper calf.
== END | disposition home or self-care (01) ==
LOC: RADUSWWP 10:45
PROVIDERS: ATTEND Internal Medicine
DX: M79.662 Pain in left lower leg (principal); M79.622 Pain in left upper arm

== ENCOUNTER → 2021-01-31 | Outpatient (CLI) | payer MEDICARE ==
--- NOTE | 2021-02-02 11:10 | MM ---
Reason for exam: screening (asymptomatic). Last mammogram was performed 1 year and 2 months ago. History: Patient is postmenopausal. Taking hormonal contraceptives. Physical Findings: A clinical breast exam by your physician is recommended on an annual basis and results should be correlated with mammographic findings. MG Screening Mammo w CAD Bilateral CC and MLO view(s) were taken. Prior study comparison: December 03, 2019, bilateral MG screening mammo w CAD. September 30, 2018, bilateral MG screening mammo w CAD. There are scattered fibroglandular densities. Finding: There is a 9 mm equal density (isodense), indistinct round mass located 1 cm from the nipple in the subareolar position. New finding since December 03, 2019 and September 30, 2018. ASSESSMENT: Incomplete: need additional imaging evaluation, BI-RAD 0 RECOMMENDATION: Special view mammogram of the left breast. If lesion persists on supplemental views, image directed ultrasound is recommended. [facility] will attempt to contact patient to return for supplemental views and ultrasound if indicated.
== END ==
LOC: RADMAMWWP 10:56
PROVIDERS: ATTEND Internal Medicine
DX: Z12.31 Encounter for screening mammogram for malignant neoplasm of breast (principal); Z78.0 Asymptomatic menopausal state
CPT/HCPCS: 77067

== ENCOUNTER → 2021-02-07 | Outpatient (CLI) | payer MEDICARE ==
--- NOTE | 2021-02-07 13:26 | MM ---
Reason for exam: additional evaluation requested from abnormal screening. Last mammogram was performed less than 1 month ago. History: Patient is postmenopausal. Physical Findings: Nurse did not find any significant physical abnormalities on exam. MG Work Up Mamm w CAD LT LM and spot compression MLO view(s) were taken of the left breast. Prior study comparison: January 31, 2021, bilateral MG screening mammo w CAD. December 03, 2019, bilateral MG screening mammo w CAD. 1.4cm nodule zone A 12-3 o'clock, ultrasound recommended. These results were verbally communicated with the patient and result sheet given to the patient on 02/07/21. ASSESSMENT: Incomplete: need additional imaging evaluation, BI-RAD 0 RECOMMENDATION: Ultrasound of the left breast.
--- NOTE | 2021-02-07 13:28 | USB ---
Reason for exam: additional evaluation requested from abnormal screening. History: Patient is postmenopausal. US Breast Limited LT Left limited breast ultrasound including focal area of concern, retroareolar and axilla demonstrates a 0.4 x 0.4 x 0.2cm oval, complex, cystic lesion at 12 o'clock, a 1.1 x 1.0 x 0.6cm oval, complex, cystic lesion at 1 o'clock, a 0.5 x 0.5 x 0.3cm oval, complex, cystic lesion at 4 o'clock and a 1.1 x 0.8 x 0.9cm lymph node at the axilla. These results were verbally communicated with the patient and result sheet given to the patient on 02/07/21. ASSESSMENT: Probably benign, BI-RAD 3 RECOMMENDATION: Ultrasound of the left breast in 6 months.
== END | disposition home or self-care (01) ==
LOC: RADMAMWWP 09:20
PROVIDERS: ATTEND Internal Medicine
DX: N60.02 Solitary cyst of left breast (principal); Z78.0 Asymptomatic menopausal state
CPT/HCPCS: 77065

== ENCOUNTER 2021-05-31 12:43 | Emergency (ER) | payer MEDICARE ==
[2021-05-31] MEDS ORDERED: KETOROLAC 15 MG/ML 1 ML VIAL IVP STA (13:28)
[2021-05-31] MEDS ORDERED: HYDROmorphone 0.5 MG/0.5 ML SYRINGE IVP STA (13:28)
[2021-05-31 13:41] LABS: Basophils % (A) 0 %; Eosinophils # (A) 0.1 k/uL (0-0.7); Eosinophils % (A) 1 %; HCT 38.1 % (34.0-46.0); HGB 12.4 gm/dL (11.4-16.0); Lymphocytes # (A) 2.2 k/uL (1.0-4.8); Lymphocytes % (A) 25 %; MCH 28.6 pg (25.0-35.0); MCHC 32.7 g/dL (31.0-37.0); MCV 87.5 fL (80.0-100.0); Mean Platelet Volume 8.4; Monocytes # (A) 0.5 k/uL (0-1.0); Monocytes % (A) 6 %; Neutrophils # (A) 5.9 k/uL (1.3-7.7); Neutrophils % (A) 66 %; Platelet Count 257 k/uL (150-450); RBC 4.36 m/uL (3.80-5.40); RDW 14.5 % (11.5-15.5)
[2021-05-31 13:50] LABS: Albumin 3.7 g/dL (3.5-5.0); Calcium 9.1 mg/dL (8.4-10.2); Potassium 3.9 mmol/L (3.5-5.1); Total Bilirubin 0.4 mg/dL (0.2-1.3); Total Protein 6.8 g/dL (6.3-8.2)
--- NOTE | 2021-05-31 14:09 | XR ---
EXAMINATION TYPE: XR chest 2V DATE OF EXAM: 05/31/2021 COMPARISON: 11/09/2019 HISTORY: Lower back pain TECHNIQUE: Frontal and lateral views of the chest are obtained. FINDINGS: Underpenetration limits evaluation due to body habitus. Enlargement of the cardiac silhouette is unchanged. Sternotomy changes are noted. AICD lead is unchan ged. IMPRESSION: No significant change since prior.
--- NOTE | 2021-05-31 14:13 | XR ---
EXAMINATION TYPE: XR lumbosacral spine min 4V DATE OF EXAM: 05/31/2021 CLINICAL HISTORY: Low back pain TECHNIQUE: Frontal, lateral, and oblique images of the lumbar spine are obtained. COMPARISON: None FINDINGS: There are 5 lumbar type vertebral bodies identified. The lumbar spine shows satisfactory alignment. There is anterior wedging of the T12 vertebral body. Multilevel endplate sclerosis and ost eophytosis with facet arthropathy is seen. Surgical clips are noted in the right upper abdomen. IMPRESSION: Anterior wedging of the T12 vertebral body. Multilevel disc disease and osteoarthritic changes are seen throughout the lumbar spine.
[2021-05-31 14:17] VITALS: RESP 18
--- NOTE | 2021-05-31 14:32 | ED ---
General Adult HPI - General Chief complaint: Shortness of Breath Stated complaint: defibrilator problem, lt leg pain Time Seen by Provider: 05/31/21 12:50 Source: patient, RN notes reviewed, old records reviewed Mode of arrival: wheelchair Limitations: no limitations - History of Present Illness Initial comments: This a 56-year-old female whose brought into the emergency department because of left buttocks pain that radiates down her leg into her calf. Patient states the pain gets so bad that she feels like she short of breath but she doesn't believe she is actually short of breath she states that just because she is in so much pain. Patient denies any fever chills per patient denies any chest pain or palpitations. Patient denies any cough. Patient denies any other symptoms. Patient states this back pain and leg pain started about 2 weeks ago and has gotten progressively worse. - Related Data Home Medications Medication Instructions Recorded Confirmed Pravastatin Sodium [Pravachol] 40 mg PO HS 03/25/15 05/31/21 Aspirin EC [Ecotrin Low Dose] 81 mg PO DAILY 06/27/16 05/31/21 Warfarin [Coumadin] 5 mg PO MOTUTH 05/01/17 05/31/21 Warfarin [Coumadin] 10 mg PO SUWEFRSA 05/01/17 05/31/21 Isosorbide Mononitrate ER [Imdur] 30 mg PO DAILY 05/02/17 05/31/21 HYDROcodone/APAP 7.5-325MG [Bee 1 tab PO BID PRN 11/13/17 05/31/21 7.5-325] hydrALAZINE HCL [Apresoline] 25 mg PO BID 11/13/17 05/31/21 Carvedilol [Coreg] 25 mg PO BID 10/01/18 05/31/21 Spironolactone 50 mg PO DAILY 05/31/21 05/31/21 Previous Rx's Medication Instructions Recorded lisinopriL 40 mg PO DAILY #30 tablet 03/27/15 Nitroglycerin Sl Tabs [Nitrostat] 0.4 mg SUBLINGUAL Q5M PRN #30 tab 05/03/17 predniSONE [Deltasone] 40 mg PO DAILY #8 tab 05/31/21 Allergies Allergy/AdvReac Type Severity Reaction Status Date / Time Penicillins Allergy Anaphylaxis Verified 05/31/21 13:37 shellfish derived [Shellfish] Allergy Anaphylaxis Verified 05/31/21 13:37 Review of Systems ROS Statement: Those systems with pertinent positive or pertinent negative responses have been documented in the HPI. ROS Other: All systems not noted in ROS Statement are negative. Past Medical History Past Medical History: Coronary Artery Disease (CAD), Chest Pain / Angina, Heart Failure, GERD/Reflux, Hyperlipidemia, Myocardial Infarction ([place]), Syncope Additional Past Medical History / Comment(s): Recent UTI, nonischemic cardiomyopathy, anemia in past, DVT, past stress test Last Myocardial Infarction Date:: 2007 History of Any Multi-Drug Resistant Organisms: None Reported Past Surgical History: AICD, Cholecystectomy, Heart Catheterization, Pacemaker, Tubal Ligation Additional Past Surgical History / Comment(s): 2006 AICD at [facility], 08/01/05 mitral valve repair [address]. Pb aortic valve replaced Past Anesthesia/Blood Transfusion Reactions: No Reported Reaction Additional Past Anesthesia/Blood Transfusion Reaction / Comment(s): Pt has received blood in past without reaction. Type of Cardiac Device: AICD Device Placement Date:: 2006 Past Psychological History: No Psychological Hx Reported Smoking Status: Current every day smoker Past Alcohol Use History: None Reported Past Drug Use History: None Reported - Past Family History Father Family Medical History: Myocardial Infarction ([place]) Additional Family Medical History / Comment(s): Father of a [place] at the age of 60yrs. Mother Family Medical History: CVA/TIA, Seizure Disorder Additional Family Medical History / Comment(s): Mother had a CVA and seizures- had a trach and was comatose for 3 yrs before she . General Exam - General Exam Comments Initial Comments: GENERAL: Patient is well-developed and well-nourished. Patient is nontoxic and well-hyd rated and is in moderate distress. ENT: Neck is soft and supple. No significant lymphadenopathy is noted. Oropharynx is clear. Moist mucous membranes. Neck has full range of motion without elicit ing any pain. EYES: The sclera were anicteric and conjunctiva were pink and moist. Extraocular m ovements were intact and pupils were equal round and reactive to light. Eyelids were unremarkable. PULMONARY: Unlabored respirations. Good breath sounds bilaterally. Nursing noted that there was some wheezing however when I listen to her there was no wheezing at all and she was clear. CARDIOVASCULAR: There is a regular rate and rhythm without any murmurs gallops or rubs. ABDOMEN: Soft and nontender with normal bowel sounds. SKIN: Skin is clear with no lesions or rashes and otherwise unremarkable. NEUROLOGIC: Patient is alert and oriented x3. Cranial nerves II through XII are grossly intact. Motor and sensory are also intact. Normal speech, volume and content. Symmetrical smile. MUSCULOSKELETAL: Normal extremities with adequate strength and full range of motion. Patient is right leg test positive on the left side at about 30 LYMPHATICS: No significant lymphadenopathy is noted PSYCHIATRIC: Normal psychiatric evaluation. Limitations: no limitations Course Vital Signs 05/31/21 05/31/21 12:48 14:17 Temperature 98.4 F Pulse Rate 83 71 Respiratory 16 18 Rate Blood Pressure 117/73 118/81 O2 Sat by Pulse 99 100 Oximetry Medical Decision Making - Medical Decision Making EKG shows normal sinus rhythm at 80 bpm SC interval 244 QRS 132 QT interval 426 QTC is 491. Patient's EKG shows no ST segment elevation or depression. Patient has a left bundle branch block. I will back into reevaluate the patient she was feeling considerably better. Patient be going home with a steroid and follow-up with her doctor. Patient d enies any shortness of breath at this time. Patient states she believes she was feeling short of breath just because she was in so much pain earlier. - Lab Data Result diagrams: 05/31/21 13:30 05/31/21 13:30 Lab Results 05/31/21 05/31/21 Range/Units 13:30 13:30 WBC 9.0 (3.8-10.6) k/uL RBC 4.36 (3.80-5.40) m/uL Hgb 12.4 (11.4-16.0) gm/dL Hct 38.1 (34.0-46.0) % MCV 87.5 (80.0-100.0) fL MCH 28.6 (25.0-35.0) pg MCHC 32.7 (31.0-37.0) g/dL RDW 14.5 (11.5-15.5) % Plt Count 257 (150-450) k/uL MPV 8.4 Neutrophils % 66 % Lymphocytes % 25 % Monocytes % 6 % Eosinophils % 1 % Basophils % 0 % Neutrophils # 5.9 (1.3-7.7) k/uL Lymphocytes # 2.2 (1.0-4.8) k/uL Monocytes # 0.5 (0-1.0) k/uL Eosinophils # 0.1 (0-0.7) k/uL Basophils # 0.0 (0-0.2) k/uL Sodium 141 (137-145) mmol/L Potassium 3.9 (3.5-5.1) mmol/L Chloride 109 H (98-107) mmol/L Carbon Dioxide 26 (22-30) mmol/L Anion Gap 6 mmol/L BUN 17 (7-17) mg/dL Creatinine 0.84 (0.52-1.04) mg/dL Est GFR (CKD-EPI)AfAm 89 (>60 ml/min/1.73 sqM) Est GFR (CKD-EPI)NonAf 77 (>60 ml/min/1.73 sqM) Glucose 103 H (74-99) mg/dL Calcium 9.1 (8.4-10.2) mg/dL Total Bilirubin 0.4 (0.2-1.3) mg/dL AST 21 (14-36) U/L ALT 11 (4-34) U/L Alkaline Phosphatase 73 (38-126) U/L Total Protein 6.8 (6.3-8.2) g/dL Albumin 3.7 (3.5-5.0) g/dL Disposition Clinical Impression: Sciatica Disposition: HOME SELF-CARE Condition: Good Instructions (If sedation given, give patient instructions): Sciatica (ED) Prescriptions: predniSONE [Deltasone] 40 mg PO DAILY #8 tab Is patient prescribed a controlled substance at d/c from ED?: No Referrals: Karly Kaplan MD [Primary Care Provider] - 1-2 days Time of Disposition: 15:18
--- NOTE | 2021-05-31 14:37 | US ---
EXAMINATION TYPE: US venous doppler duplex LE LT DATE OF EXAM: 05/31/2021 2:30 PM COMPARISON: US 04/19/2020 CLINICAL HISTORY: Calf pain. Pt states left leg pain SIDE PERFORMED: Left TECHNIQUE: The lower extremity deep venous system is examined utilizing real time linear array sonog chiqui with graded compression, doppler sonography and color-flow sonography. VESSELS IMAGED: Common Femoral Vein Deep Femoral Vein Greater Saphenous Vein * Femoral Vein Popliteal Vein Proximal Calf Veins (* superficial vessels) Left Leg: Negative for DVT IMPRESSION: No sonographic evidence for deep vein thrombosis of the left lower extremity.
[2021-05-31] MEDS ORDERED: methylPREDNISolone SOD SUCCI 125 MG/2 ML VIAL IV STA (14:42)
[2021-05-31 15:38] VITALS: BP 110/67; PULSE 66; TEMP 97.8
== END 2021-05-31 15:45 | disposition home or self-care (01) ==
LOC: EC 12:43
DX: M54.42 Lumbago with sciatica, left side (principal); I25.10 Atherosclerotic heart disease of native coronary artery without angina pectoris; I50.9 Heart failure, unspecified; I25.2 Old myocardial infarction; E78.5 Hyperlipidemia, unspecified; K21.9 Gastro-esophageal reflux disease without esophagitis; F17.200 Nicotine dependence, unspecified, uncomplicated; Z95.0 Presence of cardiac pacemaker; Z79.82 Long term (current) use of aspirin; Z79.01 Long term (current) use of anticoagulants; Z79.891 Long term (current) use of opiate analgesic; Z79.899 Other long term (current) drug therapy
CPT/HCPCS: 36415; 93005; 80053; 85025; 72110; 71046; 93971; 96374; 96375 ×2; 99284; J2930; J1885; J1170

== ENCOUNTER → 2021-08-17 | Outpatient (CLI) | payer MEDICARE ==
--- NOTE | 2021-08-18 07:49 | CT ---
EXAMINATION TYPE: CT lumbar spine wo con DATE OF EXAM: 08/17/2021 5:04 PM COMPARISON: None HISTORY: low back pain CT DLP: 985 mGycm Automated exposure control for dose reduction was used. Unenhanced CT of the lumbar spine was performed. Bone and soft tissue window settings are submitted as well as coronal and sagittal reconstructions. L1-L2: Normal disc space height. No disc herniation protrusion or central stenosis. No facet joint arthropathy. No evidence for foraminal encroachment. L2-L3: Mild degenerative disc space narrowing. Posterior disc bulge without central stenosis or disc herniation. Spinal canal is congenitally diminutive in size. L3-L4: Moderate disc desiccation. Posterior disc bulge effaces the ventral thecal sac. Degenerative c hange of the facet joints and hypertrophy of the ligamentum flavum contribute to moderate central dakota nosis. L4-L5: Moderate disc desiccation. Posterior disc bulge effaces the ventral thecal sac. Degenerative c hange of the facet joints and hypertrophy of the ligamentum flavum contribute to moderate central dakota nosis. L5-S1: Vacuum disc noted. Posterior disc bulge. Mild effacement ventral thecal sac. No evidence for c entral stenosis. Bilateral lateral recess stenosis and foraminal encroachment. Facet joint arthropath y. Spinal canal is congenitally diminutive in size. Loss of height superior endplate of T12 may be relat ed to Schmorl node formation And is certainly chronic in nature. IMPRESSION: 1. Degenerative disc disease as discussed. 2. Central stenosis at L3-4 and L4-5.
== END | disposition home or self-care (01) ==
LOC: RADCTMAIN 16:42
PROVIDERS: ATTEND Internal Medicine
DX: M51.36 Other intervertebral disc degeneration, lumbar region (principal); M48.061 Spinal stenosis, lumbar region without neurogenic claudication; M51.27 Other intervertebral disc displacement, lumbosacral region; M47.816 Spondylosis without myelopathy or radiculopathy, lumbar region
CPT/HCPCS: 72131

== ENCOUNTER 2021-08-23 09:07 | Emergency (ER) | payer MEDICARE ==
[2021-08-23 09:58] VITALS: TEMP 98
[2021-08-23] MEDS ORDERED: MORPHINE SULFATE 4 MG/ML SYRINGE IM STA (10:48)
--- NOTE | 2021-08-23 11:56 | CT ---
EXAMINATION TYPE: CT hip LT wo con DATE OF EXAM: 08/23/2021 COMPARISON: None HISTORY: Increasing Lt hip pain CT DLP: 1412.6 mGycm Automated exposure control for dose reduction was used. Contrast: None Technique: Axial images 3 mm thick sections. Reconstructed images in the coronal and sagittal plane. Three-D reconstructed images were performed by the technologist separate computer FINDINGS: Left Femoral head articulates with the acetabulum. No acute fracture or dislocation is evident. Remai hunter osseous structures appear intact. Muscle density appears normal. Some joint space narrowing is likely present. Correlate for osteoarthritic degenerative change. Closer evaluation is required, MRI could be performed. IMPRESSION: 1. FINDINGS SUGGESTIVE FOR OSTEOARTHRITIC DEGENERATIVE CHANGES LEFT HIP. 2. NO ACUTE OSSEOUS ABNORMALITY EVIDENT
[2021-08-23] MEDS ORDERED: MORPHINE SULFATE 2 MG/ML SYRINGE IM STA (12:43)
--- NOTE | 2021-08-23 12:44 | ED ---
Lower Extremity Injury HPI - General Chief Complaint: Extremity Injury, Lower Stated Complaint: left side numbness Time Seen by Provider: 08/23/21 10:11 Source: patient, family, RN notes reviewed, old records reviewed Mode of arrival: wheelchair Limitations: no limitations - History of Present Illness Initial Comments: Patient is a 56-year-old female presenting to the emergency Department with complaints of left hip pain increasing over the past week. She states she will follow about 1-2 years ago and started having some left hip pain. She states she had a CT performed last week, she does not know the results of it. She has yet to see an orthopedic doctor. She's been seeing her primary care. She denies any additional falls or trauma to her left hip in the past 1-2 years. She does admit to pain radiating down her left leg. She did try steroids, they did not help her. She is prescribed Hiko tens for chronic pain, they are not helping her. The last dose was yesterday. She denies any bowel or bladder incontinence, no saddle paresthesias. She denies any low back pain. She denies any fevers or chills, no chest pain or shortness of breath. She has no further complaints at this time. Reasons vitals are stable upon arrival. - Related Data Home Medications Medication Instructions Recorded Confirmed Pravastatin Sodium [Pravachol] 40 mg PO HS 03/25/15 08/23/21 Aspirin EC [Ecotrin Low Dose] 81 mg PO DAILY 06/27/16 08/23/21 Warfarin [Coumadin] 5 mg PO MOTUTH 05/01/17 08/23/21 Warfarin [Coumadin] 10 mg PO SUWEFRSA 05/01/17 08/23/21 Isosorbide Mononitrate ER [Imdur] 30 mg PO DAILY 05/02/17 08/23/21 hydrALAZINE HCL [Apresoline] 25 mg PO BID 11/13/17 08/23/21 Carvedilol [Coreg] 25 mg PO BID 10/01/18 08/23/21 Spironolactone 50 mg PO DAILY 05/31/21 08/23/21 Acetaminophen/Diphenhydramine 1 tab PO HS PRN 08/23/21 08/23/21 [Tylenol PM 500-25mg] Furosemide [Lasix] 20 mg PO DAILY 08/23/21 08/23/21 HYDROcodone/APAP 10-325MG [Hiko 1 tab PO TID PRN 08/23/21 08/23/21 10-325] Previous Rx's Medication Instructions Recorded lisinopriL 40 mg PO DAILY #30 tablet 03/27/15 Nitroglycerin Sl Tabs [Nitrostat] 0.4 mg SUBLINGUAL Q5M PRN #30 tab 05/03/17 Cyclobenzaprine [Flexeril] 10 mg PO TID PRN #15 tab 08/23/21 Allergies Allergy/AdvReac Type Severity Reaction Status Date / Time Penicillins Allergy Anaphylaxis Verified 08/23/21 10:57 shellfish derived [Shellfish] Allergy Anaphylaxis Verified 08/23/21 10:57 Review of Systems ROS Statement: Those systems with pertinent positive or pertinent negative responses have been documented in the HPI. ROS Other: All systems not noted in ROS Statement are negative. Past Medical History Past Medical History: Coronary Artery Disease (CAD), Chest Pain / Angina, Heart Failure, GERD/Reflux, Hyperlipidemia, Myocardial Infarction ([place]), Syncope Additional Past Medical History / Comment(s): Recent UTI, nonischemic cardiom yopathy, anemia in past, DVT, past stress test Last Myocardial Infarction Date:: 2007 History of Any Multi-Drug Resistant Organisms: None Reported Past Surgical History: AICD, Cholecystectomy, Heart Catheterization, Pacemaker, Tubal Ligation Additional Past Surgical History / Comment(s): 2006 AICD at [facility], 08/01/05 mitral valve repair and St. Pb aortic valve replaced Past Anesthesia/Blood Transfusion Reactions: No Reported Reaction Additional Past Anesthesia/Blood Transfusion Reaction / Comment(s): Pt has received blood in past without reaction. Type of Cardiac Device: AICD Device Placement Date:: 2006 Past Psychological History: No Psychological Hx Reported Smoking Status: Current every day smoker Past Alcohol Use History: None Reported Past Drug Use History: None Reported - Past Family History Father Family Medical History: Myocardial Infarction ([place]) Additional Family Medical History / Comment(s): Father of a [place] at the age of 60yrs. Mother Family Medical History: CVA/TIA, Seizure Disorder Additional Family Medical History / Comment(s): Mother had a CVA and seizures- had a trach and was comatose for 3 yrs before she . General Exam - General Exam Comments Initial Comments: GENERAL: Patient is well-developed and well-nourished. Patient is nontoxic and in no mild distress. HEAD: Atraumatic, normocephalic. EYES: Pupils equal round and reactive to light, extraocular movements intact, sclera anicteric, conjunctiva are normal. Eyelids were unremarkable. ENT: Moist mucous membranes. NECK: Normal range of motion, supple without lymphadenopathy or JVD. LUNGS: Unlabored respirations. Breath sounds clear to auscultation bilaterally and equal. No wheezes rales or rhonchi. HEART: Regular rate and rhythm without murmurs, rubs or gallops. ABDOMEN: Soft, nontender, normoactive bowel sounds. MUSCULOSKELETAL: Patient has pain with palpation in the left gluteal area, left upper hamstring area. She has full range of motion of her left hip although painful at the end range. She has painful extension. He is neurovascular intact. No pain of the low back. No clubbing or cyanosis. NEUROLOGICAL: Patient is alert and oriented x 3. SKIN: Warm, Dry, normal turgor, no rashes or lesions noted. Limitations: no limitations Course Vital Signs 08/23/21 09:52 Temperature 98.0 F Pulse Rate 76 Respiratory 18 Rate Blood Pressure 119/58 O2 Sat by Pulse 97 Oximetry Medical Decision Making - Medical Decision Making Patient is a 56-year-old female here with left hip pain over the past week. She does have history of chronic low back pain but states it's been worse this last week. No additional falls or trauma. She had a CT of the lumbar performed last week, did review the results, only degenerative disc disease, no other acute findings. Patient is having pretty severe pain of the left hip, did CT left hip and showing only degenerative disease, no acute fractures dislocations. Patient was given pain medicine today. I discussed the results with her. She is to follow up with orthopedics. [facility] I will give her a trial of muscle relaxers and a referral. She is in agreement with this plan of care and stable for discharge. Disposition Clinical Impression: Left hip pain Disposition: HOME SELF-CARE Condition: Stable Instructions (If sedation given, give patient instructions): Hip Pain (ED) Additional Instructions: Please return to the Emergency Department if symptoms worsen or any other concerns. Trial of muscle relaxer. Please follow up with orthopedics as discussed. Prescriptions: Cyclobenzaprine [Flexeril] 10 mg PO TID PRN #15 tab PRN Reason: Muscle Spasm Is patient prescribed a controlled substance at d/c from ED?: No Referrals: Karly Kaplan MD [Primary Care Provider] - 1-2 days Adebayo Nolasco MD [STAFF PHYSICIAN] - 1-2 days Time of Disposition: 12:44
[2021-08-23 12:59] VITALS: BP 122/68; PULSE 78; RESP 20
== END 2021-08-23 12:59 | disposition home or self-care (01) ==
LOC: EC 09:07
DX: M25.552 Pain in left hip (principal); I25.10 Atherosclerotic heart disease of native coronary artery without angina pectoris; I50.9 Heart failure, unspecified; K21.9 Gastro-esophageal reflux disease without esophagitis; E78.5 Hyperlipidemia, unspecified; I25.2 Old myocardial infarction; F17.200 Nicotine dependence, unspecified, uncomplicated; Z79.82 Long term (current) use of aspirin; Z79.01 Long term (current) use of anticoagulants; Z88.0 Allergy status to penicillin; Z87.440 Personal history of urinary (tract) infections; Z90.49 Acquired absence of other specified parts of digestive tract; Z95.0 Presence of cardiac pacemaker; Z98.51 Tubal ligation status
CPT/HCPCS: 99284; 96372 ×2; 73700; J2270 ×2

== ENCOUNTER 2021-08-31 09:08 | Inpatient (IN) | payer MEDICARE ==
[2021-08-31] MEDS ORDERED: HYDROmorphone 1 MG/ML 1 ML SYRINGE IVP STA (09:23)
[2021-08-31] MEDS ORDERED: SODIUM CHLORIDE 0.9% 1,000 ML IV STA (09:23)
[2021-08-31 10:30] LABS: Calcium 9.7 mg/dL (8.4-10.2); Potassium 3.9 mmol/L (3.5-5.1); Total Bilirubin 0.8 mg/dL (0.2-1.3); Total Protein 7.4 g/dL (6.3-8.2)
--- NOTE | 2021-08-31 10:30 | ED ---
Back Pain HPI - General Chief Complaint: Back Pain/Injury Stated Complaint: Chest Pain/Lt Side Pain Time Seen by Provider: 08/31/21 09:14 Source: patient, RN notes reviewed Limitations: no limitations - History of Present Illness Initial Comments: Patient is a 56-year-old female that presents to the emergency department with the referral from Dr. Nicholas for intractable low back pain with radicular symptoms. Vision does have a significant history of chronic back pain. She a lso has got worse over the last several weeks. She does have extensive degenerative disc disease according to lumbar CT. Patient was very uncomfortable and in severe pain while sitting in bed in exam interview stating that was a 10 out of 10 with no relief from any at home medications. Patient de nied any other issues or complaints at this time. She denied chest pain shortness of breath headache nausea vomiting diarrhea constipation fever fatigue chills. - Related Data Home Medications Medication Instructions Recorded Confirmed Pravastatin Sodium [Pravachol] 40 mg PO HS 03/25/15 08/23/21 Aspirin EC [Ecotrin Low Dose] 81 mg PO DAILY 06/27/16 08/23/21 Warfarin [Coumadin] 5 mg PO MOTUTH 05/01/17 08/23/21 Warfarin [Coumadin] 10 mg PO SUWEFRSA 05/01/17 08/23/21 Isosorbide Mononitrate ER [Imdur] 30 mg PO DAILY 05/02/17 08/23/21 hydrALAZINE HCL [Apresoline] 25 mg PO BID 11/13/17 08/23/21 Carvedilol [Coreg] 25 mg PO BID 10/01/18 08/23/21 Spironolactone 50 mg PO DAILY 05/31/21 08/23/21 Acetaminophen/Diphenhydramine 1 tab PO HS PRN 08/23/21 08/23/21 [Tylenol PM 500-25mg] Furosemide [Lasix] 20 mg PO DAILY 08/23/21 08/23/21 HYDROcodone/APAP 10-325MG [[place] 1 tab PO TID PRN 08/23/21 08/23/21 10-325] Previous Rx's Medication Instructions Recorded lisinopriL 40 mg PO DAILY #30 tablet 03/27/15 Nitroglycerin Sl Tabs [Nitrostat] 0.4 mg SUBLINGUAL Q5M PRN #30 tab 05/03/17 Cyclobenzaprine [Flexeril] 10 mg PO TID PRN #15 tab 08/23/21 Allergies Allergy/AdvReac Type Severity Reaction Status Date / Time Penicillins Allergy Anaphylaxis Verified 08/31/21 09:10 shellfish derived [Shellfish] Allergy Anaphylaxis Verified 08/31/21 09:10 Review of Systems ROS Statement: Those systems with pertinent positive or pertinent negative responses have been documented in the HPI. ROS Other: All systems not noted in ROS Statement are negative. Past Medical History Past Medical History: Coronary Artery Disease (CAD), Chest Pain / Angina, Heart Failure, GERD/Reflux, Hyperlipidemia, Myocardial Infarction ([place]), Syncope Additional Past Medical History / Comment(s): Recent UTI, nonischemic cardiomyopathy, anemia in past, DVT, past stress test Last Myocardial Infarction Date:: 2007 History of Any Multi-Drug Resistant Organisms: None Reported Past Surgical History: AICD, Cholecystectomy, Heart Catheterization, Pacemaker, Tubal Ligation Additional Past Surgical History / Comment(s): 2006 AICD at [facility], 08/01/[address] repair [address]. Pb aortic valve replaced Past Anesthesia/Blood Transfusion Reactions: No Reported Reaction Additional Past Anesthesia/Blood Transfusion Reaction / Comment(s): Pt has received blood in past without reaction. Type of Cardiac Device: AICD Device Placement Date:: 2006 Past Psychological History: No Psychological Hx Reported Smoking Status: Current every day smoker Past Alcohol Use History: None Reported Past Drug Use History: None Reported - Past Family History Father Family Medical History: Myocardial Infarction (MA) Additional Family Medical History / Comment(s): Father of a MA at the age of 60yrs. Mother Family Medical History: CVA/TIA, Seizure Disorder Additional Family Medical History / Comment(s): Mother had a CVA and seizures- had a trach and was comatose for 3 yrs before she . General Exam Limitations: no limitations, physical limitation General appearance: alert, in no apparent distress, in distress, obese Head exam: Present: atraumatic, normocephalic, normal inspection Eye exam: Present: normal appearance, PERRL, EOMI. Absent: scleral icterus, conjunctival injection, periorbital swelling Neck exam: Present: normal inspection Respiratory exam: Present: normal lung sounds bilaterally. Absent: respiratory distress, wheezes, rales, rhonchi, stridor Cardiovascular Exam: Present: regular rate, normal rhythm, normal heart sounds. Absent: systolic murmur, diastolic murmur, rubs, gallop, clicks GI/Abdominal exam: Present: soft, normal bowel sounds. Absent: distended, tenderness, guarding, rebound, rigid Extremities exam: Present: normal inspection, full ROM, normal capillary refill. Absent: tenderness, pedal edema, joint swelling, calf tenderness Back exam: Present: normal inspection, tenderness (Bilateral low back) Neurological exam: Present: alert, oriented X3 Psychiatric exam: Present: normal affect, normal mood Skin exam: Present: warm, dry, intact, normal color. Absent: rash Course Vital Signs 08/31/21 09:10 Temperature 97.7 F Pulse Rate 50 L Respiratory 16 Rate Blood Pressure 109/74 O2 Sat by Pulse 95 Oximetry Medical Decision Making - Medical Decision Making 56-year-old female with chronic back pain complaining of worsening back pain sent by Dr. Nicholas for pain control. Labs, EKG, 1 mg of Dilaudid ordered. Dr. Nicholas was contacted to clarify his referral. He noted that he does not feel cold we'll treat patient outpatient due to the severity of her pain. Patient does have a history of chronic lumbar degenerative disc disease and formal narrowing. Labs: White blood cells 14.6, creatinine 1.22. Dr. Salmeron was consult and most of the abdomen with anesthesia on consult. Case was discussed with Dr. Nava, patient will be admitted. - Lab Data Result diagrams: 08/31/21 10:08 08/31/21 10:08 Lab Results 08/31/21 08/31/21 Range/Units 10:08 10:08 WBC 14.3 H (3.8-10.6) k/uL RBC 5.34 (3.80-5.40) m/uL Hgb 15.9 (11.4-16.0) gm/dL Hct 46.5 H (34.0-46.0) % MCV 87.0 (80.0-100.0) fL MCH 29.7 (25.0-35.0) pg MCHC 34.1 (31.0-37.0) g/dL RDW 13.9 (11.5-15.5) % Plt Count 240 (150-450) k/uL MPV 11.4 Neutrophils % 80 % Lymphocytes % 13 % Monocytes % 5 % Eosinophils % 0 % Basophils % 0 % Neutrophils # 11.5 H (1.3-7.7) k/uL Lymphocytes # 1.8 (1.0-4.8) k/uL Monocytes # 0.7 (0-1.0) k/uL Eosinophils # 0.1 (0-0.7) k/uL Basophils # 0.0 (0-0.2) k/uL Manual Slide Review Performed Sodium 142 (137-145) mmol/L Potassium 3.9 (3.5-5.1) mmol/L Chloride 110 H (98-107) mmol/L Carbon Dioxide 21 L (22-30) mmol/L Anion Gap 11 mmol/L BUN 9 (7-17) mg/dL Creatinine 1.22 H (0.52-1.04) mg/dL Est GFR (CKD-EPI)AfAm 57 (>60 ml/min/1.73 sqM) Est GFR (CKD-EPI)NonAf 49 (>60 ml/min/1.73 sqM) Glucose 108 H (74-99) mg/dL Calcium 9.7 (8.4-10.2) mg/dL Total Bilirubin 0.8 (0.2-1.3) mg/dL AST 34 (14-36) U/L ALT 20 (4-34) U/L Alkaline Phosphatase 92 (38-126) U/L Total Protein 7.4 (6.3-8.2) g/dL Albumin 4.0 (3.5-5.0) g/dL - EKG Data -: EKG Interpreted by [facility] EKG shows normal: sinus rhythm Rate: normal EKG Comments: Ventricular rate 97 bpm, ME interval 134 ms, QRS duration 124 ms, QTC 530 ms, PRT axes 57/16/121. Normal sinus rhythm, left bundle branch block, abnormal ECG. Similar to previous studies. Disposition Clinical Impression: Intractable low back pain Disposition: ADMITTED IP TO THIS HOSP Condition: Stable Is patient prescribed a controlled substance at d/c from ED?: No Referrals: Karly Kaplan MD [Primary Care Provider] - 1-2 days Time of Disposition: 12:12
[2021-08-31 11:15] LABS: Basophils % (A) 0 %; Eosinophils # (A) 0.1 k/uL (0-0.7); Eosinophils % (A) 0 %; HCT 46.5 % (34.0-46.0); HGB 15.9 gm/dL (11.4-16.0); Lymphocytes # (A) 1.8 k/uL (1.0-4.8); Lymphocytes % (A) 13 %; MCH 29.7 pg (25.0-35.0); MCHC 34.1 g/dL (31.0-37.0); Mean Platelet Volume 11.4; Monocytes # (A) 0.7 k/uL (0-1.0); Monocytes % (A) 5 %; Neutrophils # (A) 11.5 k/uL (1.3-7.7); Neutrophils % (A) 80 %; RBC 5.34 m/uL (3.80-5.40); RDW 13.9 % (11.5-15.5); WBC 14.3 k/uL (3.8-10.6)
[2021-08-31 12:04] LABS: Platelet Count 240 k/uL (150-450)
[2021-08-31] MEDS ORDERED: NALOXONE 0.4 MG/ML 1 ML VIAL IV PRN (12:06)
[2021-08-31 12:47] LABS: Amorphous Sediment,Urine Rare /hpf; Appearance,Urine Turbid (Clear); Bacteria,Urine Moderate /hpf; Bilirubin,Urine 1+ (Negative); Blood,Urine Negative (Negative); Color,Urine Yellow; Glucose,Urine (UA) Negative (Negative); Hyaline Casts,Urine 26 /lpf (0-2); Ketones,Urine 1+ (Negative); Leukocyte Esterase,Urine Trace (Negative); Mucus,Urine Moderate /hpf; Nitrite,Urine Negative (Negative); PH, Urine 5.5 (5.0-8.0); Protein,Urine 1+ (Negative); RBC,Urine 7 /hpf (0-5); Specific Gravity,Urine 1.016 (1.001-1.035); Squamous Epithelial Cell,Urine 23 /hpf (0-4); WBC,Urine 31 /hpf (0-5)
[2021-08-31] MEDS: SODIUM CHLORIDE 0.9% 1,000 ML IV SCH ×2 (13:01→21:05)
[2021-08-31] MEDS: HYDROmorphone 1 MG/ML 1 ML SYRINGE IVP PRN ×3 (13:09→21:05)
[2021-08-31] MEDS ORDERED: NITROGLYCERIN SL TABS 0.4 MG TAB SUBLINGUAL PRN (13:37)
[2021-08-31] MEDS ORDERED: ONDANSETRON 4 MG/2 ML VIAL IVP PRN (13:50)
--- NOTE | 2021-08-31 13:51 | P.HPIM ---
History of Present Illness H&P Date: 08/31/21 Chief Complaint: intractable back pain This is a 56-year-old female patient who presented to the ER with concerns of ongoing back pain. Patient had originally presented to Dr. Nicholas and was directed to come to ER due to the severity of pain. Patient reports pain started initially last year when she had fallen and had been increasing over the past month according to lumbar CT patient has extensive degenerative disc disease. Patient has past medical history of coronary artery bypass graft surgery with valve replacement maintained on Coumadin. Additional medical hist ory includes AICD, hyperlipidemia, nicotine dependence and essential hypertension. Patient denies any recent illness. UA positive for urinary tract infection. Patient also elevated creatinine 1.22 with signs of dehydration. At this time patient will be admitted pain service is consulted. Dilaudid ordered for pain control. Patient denies any chest pain or shortness breath. Patient denies nausea vomiting or diarrhea. Patient denies any urinary burning or frequency Review of Systems please refer to HPI otherwise unremarkable Past Medical History Past Medical History: Coronary Artery Disease (CAD), Chest Pain / Angina, Heart Failure, GERD/Reflux, Hyperlipidemia, Myocardial Infarction ([place]), Syncope Additional Past Medical History / Comment(s): Recent UTI, nonischemic cardiomyopathy, anemia in past, DVT, past stress test Last Myocardial Infarction Date:: 2007 History of Any Multi-Drug Resistant Organisms: None Reported Past Surgical History: AICD, Cholecystectomy, Heart Catheterization, Pacemaker, Tubal Ligation Additional Past Surgical History / Comment(s): 2006 AICD at [facility], 08/01/05 mitral valve repair [address]. Pb aortic valve replaced Past Anesthesia/Blood Transfusion Reactions: No Reported Reaction Additional Past Anesthesia/Blood Transfusion Reaction / Comment(s): Pt has received blood in past without reaction. Type of Cardiac Device: AICD Device Placement Date:: 2006 Past Psychological History: No Psychological Hx Reported Smoking Status: Current every day smoker Past Alcohol Use History: None Reported Past Drug Use History: None Reported - Past Family History Father Family Medical History: Myocardial Infarction ([place]) Additional Family Medical History / Comment(s): Father of a [place] at the age of 60yrs. Mother Family Medical History: CVA/TIA, Seizure Disorder Additional Family Medical History / Comment(s): Mother had a CVA and seizures- had a trach and was comatose for 3 yrs before she . Medications and Allergies Home Medications Medication Instructions Recorded Confirmed Type Pravastatin Sodium [Pravachol] 40 mg PO HS 03/25/15 08/31/21 History lisinopriL 40 mg PO DAILY #30 tablet 03/27/15 08/31/21 Rx Aspirin EC [Ecotrin Low Dose] 81 mg PO DAILY 06/27/16 08/31/21 History Warfarin [Coumadin] 5 mg PO MOTUTH 05/01/17 08/31/21 History Warfarin [Coumadin] 10 mg PO SUWEFRSA 05/01/17 08/31/21 History Isosorbide Mononitrate ER [Imdur] 30 mg PO DAILY 05/02/17 08/31/21 History Nitroglycerin Sl Tabs [Nitrostat] 0.4 mg SUBLINGUAL Q5M PRN #30 tab 05/03/17 08/31/21 Rx hydrALAZINE HCL [Apresoline] 25 mg PO BID 11/13/17 08/31/21 History Carvedilol [Coreg] 25 mg PO BID 10/01/18 08/31/21 History Spironolactone 50 mg PO DAILY 05/31/21 08/31/21 History HYDROcodone/APAP 10-325MG [[place] 1 tab PO TID PRN 08/23/21 08/31/21 History 10-325] Allergies Allergy/AdvReac Type Severity Reaction Status Date / Time Penicillins Allergy Anaphylaxis Verified 08/31/21 12:42 shellfish derived [Shellfish] Allergy Anaphylaxis Verified 08/31/21 12:42 Physical Exam Vitals: Vital Signs Temp Pulse Resp BP Pulse Ox 08/31/21 13:12 76 18 95/66 94 L 08/31/21 09:10 97.7 F 50 L 16 109/74 95 Intake and Output 08/30/21 08/31/21 08/31/21 22:59 06:59 14:59 Other: Weight 145.15 kg Head normocephalic Neck supple Lungs clear to auscultation bilaterally no wheezing or crackles Heart regular rate and rhythm S1-S2, no rub or gallop Abdomen is soft nontender nondistended positive bowel sounds no hepatosplenomegaly Extremities no edema Neuro alert and orientated to 3 Results CBC & Chem 7: 08/31/21 10:08 08/31/21 10:08 Labs: Abnormal Lab Results - Last 24 Hours (Table) 08/31/21 08/31/21 08/31/21 Range/Units 10:08 10:08 11:57 WBC 14.3 H (3.8-10.6) k/uL Hct 46.5 H (34.0-46.0) % Neutrophils # 11.5 H (1.3-7.7) k/uL Chloride 110 H (98-107) mmol/L Carbon Dioxide 21 L (22-30) mmol/L Creatinine 1.22 H (0.52-1.04) mg/dL Glucose 108 H (74-99) mg/dL Urine Appearance Turbid H (Clear) Urine Protein 1+ H (Negative) Urine Ketones 1+ H (Negative) Urine Bilirubin 1+ H (Negative) Ur Leukocyte Esterase Trace H (Negative) Urine RBC 7 H (0-5) /hpf Urine WBC 31 H (0-5) /hpf Ur Squamous Epith Cells 23 H (0-4) /hpf Amorphous Sediment Rare H (None) /hpf Urine Bacteria Moderate H (None) /hpf Hyaline Casts 26 H (0-2) /lpf Urine Mucus Moderate H (None) /hpf Assessment and Plan Assessment: 1. Intractable back pain. Dilaudid added for pain control. Pain services consulted 2. Urinary tract infection. Urine culture ordered. Patient started on doxycycline 3. Evidence of dehydration. Continue gentle hydration 4. Mechanical valve replacement. Patient is maintained on Coumadin. INR ordered 5. History of coronary artery disease 6. History of nonischemic cardiomyopathy with AICD placement 7. History of hyperlipidemia maintained on statin 8. History of essential hypertension Pain services consulted Urine culture ordered Repeat labs ordered Time with Patient: Greater than 30 (Greater than 60% of the total time spent in counseling and coordination of care)
[2021-08-31 16:46] LABS: INR 4.4 (<1.2); Prothrombin Time 42.3 sec (9.0-12.0)
[2021-08-31] MEDS: carvediloL 12.5 MG TAB PO SCH (17:49)
[2021-08-31] MEDS ORDERED: WARFARIN 0.5 MG TAB PO ONE (18:00)
[2021-08-31] MEDS ORDERED: WARFARIN 10 MG TAB PO SCH (18:00)
[2021-08-31] MEDS: HYDROcodone/APAP 10-325MG 1 EACH TAB PO PRN (19:05)
[2021-08-31] MEDS: hydrALAZINE HCL 25 MG TAB PO SCH (21:06)
[2021-08-31] MEDS: DOXYCYCLINE 100 MG in SODIUM CHLORIDE 0.9% 100 ML IVPB SCH (21:14)
[2021-08-31] MEDS: PRAVASTATIN SODIUM 40 MG TAB PO SCH (23:31)
[2021-09-01] MEDS: HYDROmorphone 1 MG/ML 1 ML SYRINGE IVP PRN ×5 (03:22→20:03)
[2021-09-01 07:12] LABS: INR 4.5 (<1.2); Prothrombin Time 43.1 sec (9.0-12.0)
[2021-09-01] MEDS: carvediloL 12.5 MG TAB PO SCH ×2 (07:34→17:01)
[2021-09-01] MEDS: DOXYCYCLINE 100 MG in SODIUM CHLORIDE 0.9% 100 ML IVPB SCH ×2 (07:38→20:54)
[2021-09-01] MEDS: SPIRONOLACTONE 25 MG TAB PO SCH (07:39)
[2021-09-01] MEDS: ISOSORBIDE MONONITRATE ER 30 MG TAB.ER.24H PO SCH (07:39)
[2021-09-01] MEDS: SODIUM CHLORIDE 0.9% 1,000 ML IV SCH ×2 (07:45→22:39)
[2021-09-01] MEDS: lisinopriL 20 MG TAB PO SCH (07:45)
[2021-09-01] MEDS: hydrALAZINE HCL 25 MG TAB PO SCH ×2 (07:45→20:55)
[2021-09-01 09:30] LABS: Basophils # (A) 0.03 X 10*3/uL (0.00-0.10); Basophils % (A) 0.3 %; Eosinophils # (A) 0.11 X 10*3/uL (0.04-0.35); HCT 41.8 % (37.2-46.3); HGB 13.6 g/dL (12.0-15.0); Lymphocytes % (A) 20.6 %; MCH 28.3 pg (27.0-32.0); MCHC 32.5 g/dL (32.0-37.0); MCV 87.1 fL (80.0-97.0); Mean Platelet Volume 11.4 fL (9.5-12.2); Monocytes # (A) 0.95 X 10*3/uL (0.20-1.00); Monocytes % (A) 8.5 %; Neutrophils # (A) 7.71 X 10*3/uL (1.80-7.70); Neutrophils % (A) 69.2 %; Platelet Count 275 X 10*3/uL (140-440); RDW 14.2 % (11.5-14.5); WBC 11.14 X 10*3/uL (4.50-10.00)
--- NOTE | 2021-09-01 12:14 | P.CON ---
Consult Note - . Consult date: 09/01/21 Assessment/Plan:: This is a 56-year-old morbidly obese lady with significant cardiac history and an acute exacerbation of her lower back pain with extension to the left lower extremity to the mid calf area with occasional tingling in the left leg and weak ness. He denies any bowel or bladder dysfunction. The patient's pain gets worse with any movement. The patient had been to the pain clinic clinic and was deemed to be a candidate for an injection in her back however she was requested to have a clear S1 level lead investigator. The patient came to the ER for severe increase in her lower back and left leg pain. She had a computed tomography scan in the ER recently and was discharged home with mild osteoarthritic changes in the left hip joints. She takes [place] 10 mg 3 times a day at home as she states. She also takes Coumadin and her INR was 4.5 today. By physical exam she is alert oriented 3 in moderate distress due to her pain. Straight leg raising test is negative on the left side. Internal and external rotation of the left hip joint caused left buttock pain. The patient has decreased muscle strength for left knee flexion compared to the right side but normal ankle flexion and extension bilaterally and normal big toe dorsiflexion bilaterally. The patient has the following diagnoses Morbid obesity Cardiomyopathy with AICD Coronary artery disease Treatment with Coumadin with high INR Left lumbar radiculopathy with acute exacerbation Plan: The patient may benefit from a lumbar epidural steroid injection however her INR is too high for this procedure and at this point the best treatment would be oral steroids and physical therapy. The patient can have this procedure done as an outpatient procedure either through our clinic clinic go through her previous pain clinic clinic. Continue [place] 10 mg 3 times a day and Dilaudid IV as needed for pain. I will leave the choice of the oral steroids for the admitting team. She may also benefit from titrating in Neurontin as tolerated. I thank you for the referral
[2021-09-01] MEDS ORDERED: WARFARIN 10 MG TAB PO SCH (18:00)
[2021-09-01] MEDS ORDERED: WARFARIN 0.5 MG TAB PO ONE (18:00)
[2021-09-01] MEDS: PRAVASTATIN SODIUM 40 MG TAB PO SCH (20:58)
[2021-09-02] MEDS: HYDROmorphone 1 MG/ML 1 ML SYRINGE IVP PRN ×2 (02:14→06:33)
[2021-09-02 06:41] LABS: INR 2.3 (<1.2); Prothrombin Time 22.4 sec (9.0-12.0)
[2021-09-02] MEDS: DOXYCYCLINE 100 MG in SODIUM CHLORIDE 0.9% 100 ML IVPB SCH (08:22)
[2021-09-02] MEDS: SODIUM CHLORIDE 0.9% 1,000 ML IV SCH (08:23)
[2021-09-02] MEDS: hydrALAZINE HCL 25 MG TAB PO SCH ×2 (08:23→22:00)
[2021-09-02] MEDS: carvediloL 12.5 MG TAB PO SCH ×2 (08:23→16:53)
[2021-09-02] MEDS: SPIRONOLACTONE 25 MG TAB PO SCH (08:24)
[2021-09-02] MEDS: ISOSORBIDE MONONITRATE ER 30 MG TAB.ER.24H PO SCH (08:24)
[2021-09-02] MEDS: lisinopriL 20 MG TAB PO SCH (08:24)
[2021-09-02 09:31] LABS: Basophils % (A) 0 %; Eosinophils # (A) 0.1 k/uL (0-0.7); Eosinophils % (A) 1 %; HCT 38.9 % (34.0-46.0); Lymphocytes # (A) 1.7 k/uL (1.0-4.8); Lymphocytes % (A) 20 %; MCH 29.6 pg (25.0-35.0); MCHC 33.1 g/dL (31.0-37.0); MCV 89.5 fL (80.0-100.0); Mean Platelet Volume 10.2; Monocytes # (A) 0.6 k/uL (0-1.0); Monocytes % (A) 7 %; Neutrophils # (A) 5.8 k/uL (1.3-7.7); Neutrophils % (A) 69 %; Platelet Count 254 k/uL (150-450); RBC 4.34 m/uL (3.80-5.40); WBC 8.4 k/uL (3.8-10.6)
[2021-09-02 09:34] LABS: HGB 12.9 gm/dL (11.4-16.0)
[2021-09-02 09:53] LABS: ALT 19 U/L (4-34); AST 42 U/L (14-36); African American GFR (CKD) >90 (>60 ml/min/1.73 sqM); Alkaline Phosphatase 65 U/L (38-126); Anion Gap 4 mmol/L; Blood Urea Nitrogen 9 mg/dL (7-17); Calcium 8.7 mg/dL (8.4-10.2); Carbon Dioxide 24 mmol/L (22-30); Chloride 110 mmol/L (98-107); Glucose 89 mg/dL (74-99); Non-African American GFR(CKD) 86 (>60 ml/min/1.73 sqM); Potassium 3.9 mmol/L (3.5-5.1); Sodium 138 mmol/L (137-145); Total Bilirubin 0.6 mg/dL (0.2-1.3)
--- NOTE | 2021-09-02 10:16 | P.PN ---
Subjective Progress Note Date: 09/01/21 Linnette Walker, is a 56-year-old female patient who presented to the ER with concerns of ongoing back pain. Patient had originally presented to Dr. Nicholas and was directed to come to ER due to the severity of pain. Patient reports pain started initially last year when she had fallen and had been increasing over the past month according to lumbar CT patient has extensive degenerative disc disease. Patient has past medical history of coronary artery bypass graft surgery with valve replacement maintained on Coumadin. Additional medical history includes AICD, hyperlipidemia, nicotine dependence and essential hypertension. Patient denies any recent illness. UA positive for urinary tract infection. Patient also elevated creatinine 1.22 with signs of dehydration. At this time patient will be admitted pain service is consulted. Dilaudid ordered for pain control. Patient denies any chest pain or shortness breath. Patient denies nausea vomiting or diarrhea. Patient denies any urinary burning or frequency On 09/01/2021 patient's alert and oriented 3. Patient remains on [place] and D ilaudid for pain control. INR elevated. Pharmacy to dose Coumadin. Pain services consulted. Patient denies chest pain or shortness breath. Patient denies nausea vomiting or diarrhea. Patient denies any urinary burning or frequency Objective - Vital Signs Vital signs: Vital Signs Temp 97.9 F 09/01/21 07:00 Pulse 75 09/01/21 07:00 Resp 17 09/01/21 07:00 BP 104/65 09/01/21 07:00 Pulse Ox 97 09/01/21 07:00 Intake & Output 08/31/21 09/01/21 09/01/21 18:59 06:59 18:59 Intake Total 1400 Balance 1400 Weight 145.15 kg Intake: Intake, IV Titration 1400 Amount Doxycycline 100 mg In 500 Sodium Chloride 0.9% 100 ml @ 100 mls/hr IVPB Q12HR EVA Rx#:[id number] Sodium Chloride 0.9% 1, 900 000 ml @ 75 mls/hr IV . [id number] EVA Rx#:[id number] Other: # Voids 2 - Exam In general patient is alert and oriented 3 in no apparent distress Head normocephalic and atraumatic Neck supple no JVD no goiter Lungs clear to auscultation bilaterally no wheezing or crackles Heart regular rate and rhythm S1-S2, no rub or gallop Abdomen is soft nontender nondistended positive bowel sounds no hepatosplenomegaly Extremities no edema Neuro no gross focal neurological deficit - Labs CBC & Chem 7: 09/02/21 06:01 09/02/21 06:01 Labs: Abnormal Lab Results - Last 24 Hours (Table) 08/31/21 08/31/21 08/31/21 Range/Units 10:08 10:08 11:57 WBC 14.3 H (3.8-10.6) k/uL Hct 46.5 H (34.0-46.0) % Neutrophils # 11.5 H (1.3-7.7) k/uL PT (9.0-12.0) sec INR (<1.2) Chloride 110 H (98-107) mmol/L Carbon Dioxide 21 L (22-30) mmol/L Creatinine 1.22 H (0.52-1.04) mg/dL Glucose 108 H (74-99) mg/dL Urine Appearance Turbid H (Clear) Urine Protein 1+ H (Negative) Urine Ketones 1+ H (Negative) Urine Bilirubin 1+ H (Negative) Ur Leukocyte Esterase Trace H (Negative) Urine RBC 7 H (0-5) /hpf Urine WBC 31 H (0-5) /hpf Ur Squamous Epith Cells 23 H (0-4) /hpf Amorphous Sediment Rare H (None) /hpf Urine Bacteria Moderate H (None) /hpf Hyaline Casts 26 H (0-2) /lpf Urine Mucus Moderate H (None) /hpf 08/31/21 09/01/21 Range/Units 15:51 06:17 WBC (3.8-10.6) k/uL Hct (34.0-46.0) % Neutrophils # (1.3-7.7) k/uL PT 42.3 H 43.1 H (9.0-12.0) sec INR 4.4 H 4.5 H (<1.2) Chloride (98-107) mmol/L Carbon Dioxide (22-30) mmol/L Creatinine (0.52-1.04) mg/dL Glucose (74-99) mg/dL Urine Appearance (Clear) Urine Protein (Negative) Urine Ketones (Negative) Urine Bilirubin (Negative) Ur Leukocyte Esterase (Negative) Urine RBC (0-5) /hpf Urine WBC (0-5) /hpf Ur Squamous Epith Cells (0-4) /hpf Amorphous Sediment (None) /hpf Urine Bacteria (None) /hpf Hyaline Casts (0-2) /lpf Urine Mucus (None) /hpf Microbiology - Last 24 Hours (Table) 08/31/21 11:57 Urine Culture - Preliminary Urine,Clean Catch Assessment and Plan Assessment: 1. Intractable back pain. Dilaudid added for pain control. Pain services consulted 2. Urinary tract infection. Urine culture ordered. Patient started on doxycycline 3. Evidence of dehydration. Continue gentle hydration 4. Mechanical valve replacement. Patient is maintained on Coumadin. INR ordered 5. History of coronary artery disease 6. History of nonischemic cardiomyopathy with AICD placement 7. History of hyperlipidemia maintained on statin 8. History of essential hypertension Pain services consulted Urine culture ordered Repeat labs ordered
[2021-09-02] MEDS ORDERED: methylPREDNISolone SOD SUCCI 125 MG/2 ML VIAL IV STA (10:18)
--- NOTE | 2021-09-02 10:21 | P.PN ---
Subjective Progress Note Date: 09/02/21 Linnette Walker, is a 56-year-old female patient who presented to the ER with concerns of ongoing back pain. Patient had originally presented to Dr. Nicholas and was directed to come to ER due to the severity of pain. Patient reports pain started initially last year when she had fallen and had been increasing over the past month according to lumbar CT patient has extensive degenerative disc disease. Patient has past medical history of coronary artery bypass graft surgery with valve replacement maintained on Coumadin. Additional medical history includes AICD, hyperlipidemia, nicotine dependence and essential hypertension. Patient denies any recent illness. UA positive for urinary tract infection. Patient also elevated creatinine 1.22 with signs of dehydration. At this time patient will be admitted pain service is consulted. Dilaudid ordered for pain control. Patient denies any chest pain or shortness breath. Patient denies nausea vomiting or diarrhea. Patient denies any urinary burning or frequency On 09/01/2021 patient's alert and oriented 3. Patient remains on [place] and D ilaudid for pain control. INR elevated. Pharmacy to dose Coumadin. Pain services consulted. Patient denies chest pain or shortness breath. Patient denies nausea vomiting or diarrhea. Patient denies any urinary burning or frequency On 09/02/2021 patient's alert and oriented 3. Patient was evaluated by pain services no plans for steroid injection at this time due to her INR recommendation for oral steroids and physical therapy. Patient will be given Solu-Medrol 1 time dose and start on prednisone 40 mg daily. Baclofen also added. Continue [place] and Dilaudid for pain control. At this time patient denies chest pain or shortness of breath. Patient denies nausea vomiting or diarrhea. Patient denies any urinary burning or frequency Objective - Vital Signs Vital signs: Vital Signs Temp 98.0 F 09/02/21 07:00 Pulse 78 09/02/21 07:00 Resp 16 09/02/21 08:00 BP 118/72 09/02/21 07:00 Pulse Ox 96 09/02/21 07:00 Intake & Output 09/01/21 09/02/21 09/02/21 18:59 06:59 18:59 Intake Total 118 Balance 118 Intake: Oral 118 Other: Voiding Method Bedside Commode Bedside Commode # Voids 1 1 - Exam In general patient is alert and oriented 3 in no apparent distress Head normocephalic and atraumatic Neck supple no JVD no goiter Lungs clear to auscultation bilaterally no wheezing or crackles Heart regular rate and rhythm S1-S2, no rub or gallop Abdomen is soft nontender nondistended positive bowel sounds no hepatosplenomeg fabiana Extremities no edema Neuro no gross focal neurological deficit - Labs CBC & Chem 7: 09/02/21 06:01 09/02/21 06:01 Labs: Abnormal Lab Results - Last 24 Hours (Table) 09/02/21 09/02/21 Range/Units 06:01 06:01 PT 22.4 H (9.0-12.0) sec INR 2.3 H (<1.2) Chloride 110 H (98-107) mmol/L AST 42 H (14-36) U/L Total Protein 6.0 L (6.3-8.2) g/dL Albumin 3.0 L (3.5-5.0) g/dL Microbiology - Last 24 Hours (Table) 08/31/21 11:57 Urine Culture - Final Urine,Clean Catch Assessment and Plan Assessment: 1. Intractable back pain. Dilaudid added for pain control. Pain services following. Recommendation for steroids and physical therapy. Patient started on 1 dose of IV steroids and prednisone. Baclofen also added 2. Urinary tract infection. Urine culture ordered. Patient started on doxycycline 3. Evidence of dehydration. Continue gentle hydration resolved 4. Mechanical valve replacement. Patient is maintained on Coumadin. INR ordered daily 5. History of coronary artery disease 6. History of nonischemic cardiomyopathy with AICD placement 7. History of hyperlipidemia maintained on statin 8. History of essential hypertension DVT prophylaxis Coumadin. GI prophylaxis Protonix Pain services following Patient started on steroids and baclofen Doxycycline for UTI Urine culture pending
[2021-09-02] MEDS: BACLOFEN 10 MG TAB PO SCH ×3 (10:30→21:15)
[2021-09-02] MEDS: HYDROcodone/APAP 10-325MG 1 EACH TAB PO PRN ×2 (10:51→21:12)
[2021-09-02] MEDS ORDERED: WARFARIN 7.5 MG TAB PO ONE (18:00)
[2021-09-02] MEDS: DOXYCYCLINE 100 MG CAP PO SCH (21:12)
[2021-09-02] MEDS: PRAVASTATIN SODIUM 40 MG TAB PO SCH (21:12)
[2021-09-03] MEDS: HYDROmorphone 1 MG/ML 1 ML SYRINGE IVP PRN (03:06)
[2021-09-03 07:13] LABS: INR 1.7 (<1.2); Prothrombin Time 17.1 sec (9.0-12.0)
[2021-09-03] MEDS: HYDROcodone/APAP 10-325MG 1 EACH TAB PO PRN ×3 (08:06→23:21)
[2021-09-03] MEDS: DOXYCYCLINE 100 MG CAP PO SCH ×2 (08:06→23:21)
[2021-09-03] MEDS: predniSONE 20 MG TAB PO SCH (08:07)
[2021-09-03] MEDS: PANTOPRAZOLE 40 MG TABLET PO SCH (08:07)
[2021-09-03] MEDS: lisinopriL 20 MG TAB PO SCH (08:07)
[2021-09-03] MEDS: SPIRONOLACTONE 25 MG TAB PO SCH (08:07)
[2021-09-03] MEDS: BACLOFEN 10 MG TAB PO SCH ×3 (08:07→23:20)
[2021-09-03] MEDS: ISOSORBIDE MONONITRATE ER 30 MG TAB.ER.24H PO SCH (08:07)
[2021-09-03] MEDS: carvediloL 12.5 MG TAB PO SCH ×2 (08:07→17:31)
[2021-09-03] MEDS: hydrALAZINE HCL 25 MG TAB PO SCH ×2 (08:07→23:24)
[2021-09-03 09:09] LABS: Basophils # (A) 0.01 X 10*3/uL (0.00-0.10); Basophils % (A) 0.1 %; Eosinophils # (A) 0 X 10*3/uL (0.04-0.35); Eosinophils % (A) 0 %; HCT 36.7 % (37.2-46.3); HGB 12.1 g/dL (12.0-15.0); Lymphocytes # (A) 1.44 X 10*3/uL (0.90-5.00); Lymphocytes % (A) 11.9 %; MCH 28.9 pg (27.0-32.0); MCV 87.6 fL (80.0-97.0); Mean Platelet Volume 11.8 fL (9.5-12.2); Monocytes % (A) 5.8 %; Neutrophils % (A) 81.6 %; Platelet Count 240 X 10*3/uL (140-440); RBC 4.19 X 10*6/uL (4.10-5.20); RDW 14.2 % (11.5-14.5); WBC 12.12 X 10*3/uL (4.50-10.00)
[2021-09-03 09:49] LABS: African American GFR (CKD) 91.8 (60.0-200.0); Albumin 3.5 g/dL (3.8-4.9); Albumin/Globulin Ratio 1.42 (1.60-3.17); Anion Gap 11.9 mmol/L (4.00-12.00); BUN/Creat Ratio 15.82 Ratio (12.00-20.00); Calcium 9.1 mg/dL (8.7-10.3); Carbon Dioxide 18.5 mmol/L (21.6-31.8); Globulin 2.5 g/dL (1.6-3.3); Non-African American GFR(CKD) 79.2 (60.0-200.0); Potassium 4.4 mmol/L (3.5-5.5); Total Bilirubin 0.3 mg/dL (0.30-1.20)
[2021-09-03] MEDS ORDERED: WARFARIN 10 MG TAB PO ONE (18:00)
--- NOTE | 2021-09-03 20:18 | PN ---
PROGRESS NOTE I am covering for Dr. Kaplan. DATE OF SERVICE: 09/03/2021. This 56-year-old woman who was admitted with intractable back pain is being treated symptomatically. No chest pain. No palpitations. No fever. The patient is started on IV steroids. PHYSICAL EXAMINATION: Alert and oriented x2. Pulse 80, blood pressure 116/83, respiration 20, temperature 98.2, pulse ox 94% on room air. HEENT: Conjunctivae normal. NECK: No jugular venous distention. CARDIOVASCULAR: S1, S2 muffled. RESPIRATION: Breath sounds diminished at the bases. A few scattered rhonchi. ABDOMEN: Soft. NERVOUS SYSTEM: No focal deficit. LABS: INR 1.7. White count noted. ASSESSMENT: 1. Intractable back pain, on pain management. 2. Urinary tract infection. 3. Dehydration. 4. Mechanical valve replacement history. 5. History of coronary artery disease. 6. History of AICD placement. 7. History of hyperlipidemia. 8. hypertension. RECOMMENDATIONS AND DISCUSSION: I recommend to continue current medications, continue with symptomatic treatment. Continue the pain management. The patient is on p.o. steroids at this time. We will continue to monitor. Cultures are negative so far. Will request repeat labs tomorrow. Further recommendations to follow. MMODL / IJN: [id number] / PRISCILLA
[2021-09-03] MEDS: PRAVASTATIN SODIUM 40 MG TAB PO SCH (23:21)
[2021-09-04 06:32] LABS: INR 1.7 (<1.2); Prothrombin Time 17.2 sec (9.0-12.0)
[2021-09-04] MEDS: PANTOPRAZOLE 40 MG TABLET PO SCH (08:17)
[2021-09-04] MEDS: HYDROcodone/APAP 10-325MG 1 EACH TAB PO PRN ×2 (08:17→15:43)
[2021-09-04] MEDS: predniSONE 20 MG TAB PO SCH (08:17)
[2021-09-04] MEDS: BACLOFEN 10 MG TAB PO SCH ×3 (08:18→20:36)
[2021-09-04] MEDS: hydrALAZINE HCL 25 MG TAB PO SCH ×3 (08:18→20:36)
[2021-09-04] MEDS: DOXYCYCLINE 100 MG CAP PO SCH ×2 (08:18→20:36)
[2021-09-04] MEDS: lisinopriL 20 MG TAB PO SCH ×2 (08:19→09:48)
[2021-09-04] MEDS: ISOSORBIDE MONONITRATE ER 30 MG TAB.ER.24H PO SCH (09:46)
[2021-09-04 09:47] LABS: Basophils # (A) 0.02 X 10*3/uL (0.00-0.10); Basophils % (A) 0.2 %; Eosinophils # (A) 0.01 X 10*3/uL (0.04-0.35); Eosinophils % (A) 0.1 %; HCT 39.3 % (37.2-46.3); HGB 12.9 g/dL (12.0-15.0); Lymphocytes # (A) 1.93 X 10*3/uL (0.90-5.00); Lymphocytes % (A) 15.5 %; MCH 28.9 pg (27.0-32.0); MCHC 32.8 g/dL (32.0-37.0); MCV 87.9 fL (80.0-97.0); Monocytes # (A) 1.02 X 10*3/uL (0.20-1.00); Monocytes % (A) 8.2 %; Neutrophils # (A) 9.39 X 10*3/uL (1.80-7.70); Neutrophils % (A) 75.5 %; Platelet Count 240 X 10*3/uL (140-440); RBC 4.47 X 10*6/uL (4.10-5.20); RDW 14.6 % (11.5-14.5); WBC 12.43 X 10*3/uL (4.50-10.00)
[2021-09-04] MEDS: SPIRONOLACTONE 25 MG TAB PO SCH (09:47)
[2021-09-04] MEDS: carvediloL 12.5 MG TAB PO SCH ×2 (09:47→15:44)
[2021-09-04 10:47] LABS: African American GFR (CKD) 82.3 (60.0-200.0); Anion Gap 15.2 mmol/L (4.00-12.00); BUN/Creat Ratio 18.11 Ratio (12.00-20.00); Blood Urea Nitrogen 16.3 mg/dL (9.0-27.0); Calcium 9.4 mg/dL (8.7-10.3); Carbon Dioxide 17.8 mmol/L (21.6-31.8); Potassium 4.4 mmol/L (3.5-5.5)
[2021-09-04] MEDS ORDERED: WARFARIN 10 MG TAB PO ONE (18:00)
--- NOTE | 2021-09-04 19:33 | PN ---
PROGRESS NOTE DATE OF SERVICE: 09/04/2021 I am covering for Dr. Kaplan. HISTORY OF PRESENT ILLNESS: This 56-year-old woman with a past medical history of multiple medical problems was admitted with severe back pain. The patient is improving symptomatically. The patient is slated to have PT OT evaluation, possible ECF rehab. No chest pain. No palpitations. No fever. PHYSICAL EXAMINATION: Alert and oriented x3. Pulse 82, blood pressure 116/79, respiration 18, temperature 97.9, pulse ox 98% on room air. HEENT: Conjunctivae normal. Oral mucosa moist. NECK: No jugular venous distention. No lymph node enlargement. CARDIOVASCULAR: S1, S2, muffled. No S3, no S4, RESPIRATORY: Diminished breath sounds at the bases. No rhonchi, no crackles. ABDOMEN: Soft, obese. LEGS: No edema, no swelling. NERVOUS SYSTEM: No focal deficits. LAB STUDIES: WBC 12.3. UA noted. ASSESSMENT: 1. Intractable back pain on pain management. 2. History of UTI. 3. Dehydration. 4. Mechanical valve replacement history. 5. History of coronary artery disease. 6. History of AICD placement. 7. Hyperlipidemia. 8. Hypertension. RECOMMENDATIONS: Recommend to continue current management and symptomatic treatment. PT/OT evaluation, possible ECF rehab. Continue the pain management. Further recommendations to follow. MMODL / IJN: [id number] /
[2021-09-04 20:13] LABS: African American GFR (CKD) 56.4 (60.0-200.0); Albumin 4.1 g/dL (3.8-4.9); Albumin/Globulin Ratio 1.41 (1.60-3.17); Anion Gap 27.7 mmol/L (4.00-12.00); BUN/Creat Ratio 10.33 Ratio (12.00-20.00); Blood Urea Nitrogen 12.7 mg/dL (9.0-27.0); Calcium 8.7 mg/dL (8.7-10.3); Carbon Dioxide 11.8 mmol/L (21.6-31.8); Globulin 2.9 g/dL (1.6-3.3); Non-African American GFR(CKD) 48.7 (60.0-200.0); Potassium 4.5 mmol/L (3.5-5.5); Total Bilirubin 0.3 mg/dL (0.30-1.20)
[2021-09-04] MEDS: PRAVASTATIN SODIUM 40 MG TAB PO SCH (20:36)
[2021-09-04] MEDS: HYDROmorphone 1 MG/ML 1 ML SYRINGE IVP PRN (20:39)
[2021-09-05 07:01] LABS: INR 2.8 (<1.2)
[2021-09-05] MEDS: hydrALAZINE HCL 25 MG TAB PO SCH ×2 (08:48→21:24)
[2021-09-05] MEDS: lisinopriL 20 MG TAB PO SCH (08:48)
[2021-09-05] MEDS: BACLOFEN 10 MG TAB PO SCH ×3 (08:48→21:25)
[2021-09-05] MEDS: carvediloL 12.5 MG TAB PO SCH ×2 (08:48→17:37)
[2021-09-05] MEDS: SPIRONOLACTONE 25 MG TAB PO SCH (08:48)
[2021-09-05] MEDS: ISOSORBIDE MONONITRATE ER 30 MG TAB.ER.24H PO SCH (08:48)
[2021-09-05] MEDS: predniSONE 20 MG TAB PO SCH (08:49)
[2021-09-05] MEDS: PANTOPRAZOLE 40 MG TABLET PO SCH (08:49)
[2021-09-05 09:13] LABS: Basophils # (A) 0.02 X 10*3/uL (0.00-0.10); Basophils % (A) 0.2 %; Eosinophils # (A) 0.01 X 10*3/uL (0.04-0.35); Eosinophils % (A) 0.1 %; HCT 37.6 % (37.2-46.3); HGB 12.3 g/dL (12.0-15.0); Lymphocytes # (A) 2.31 X 10*3/uL (0.90-5.00); Lymphocytes % (A) 22.1 %; MCH 28.7 pg (27.0-32.0); MCHC 32.7 g/dL (32.0-37.0); MCV 87.6 fL (80.0-97.0); Monocytes % (A) 9.6 %; Neutrophils # (A) 7.05 X 10*3/uL (1.80-7.70); Neutrophils % (A) 67.5 %; Platelet Count 247 X 10*3/uL (140-440); RBC 4.29 X 10*6/uL (4.10-5.20); RDW 14.6 % (11.5-14.5); WBC 10.44 X 10*3/uL (4.50-10.00)
[2021-09-05] MEDS: DOXYCYCLINE 100 MG CAP PO SCH ×2 (09:13→21:24)
[2021-09-05] MEDS: HYDROcodone/APAP 10-325MG 1 EACH TAB PO PRN ×2 (14:19→22:25)
[2021-09-05 16:25] LABS: African American GFR (CKD) 80.2 (60.0-200.0); Anion Gap 11.7 mmol/L (4.00-12.00); BUN/Creat Ratio 19.7 Ratio (12.00-20.00); Blood Urea Nitrogen 18.1 mg/dL (9.0-27.0); Calcium 9.3 mg/dL (8.7-10.3); Carbon Dioxide 21.8 mmol/L (21.6-31.8); Non-African American GFR(CKD) 69.2 (60.0-200.0); Potassium 4.1 mmol/L (3.5-5.5)
[2021-09-05 17:30] LABS: Glucose,Whole Blood 130 mg/dL (75-99)
[2021-09-05] MEDS: INSULIN ASPART (NovoLOG) 100 UNIT/ML VIAL SQ SCH ×2 (17:34→21:20)
[2021-09-05] MEDS ORDERED: WARFARIN 5 MG TAB PO ONE (18:00)
[2021-09-05 20:06] VITALS: RESP 18
[2021-09-05 20:23] LABS: Glucose,Whole Blood 134 mg/dL (75-99)
[2021-09-05] MEDS: PRAVASTATIN SODIUM 40 MG TAB PO SCH (21:24)
--- NOTE | 2021-09-05 23:28 | P.PN ---
Subjective This is the first day I am taking care of the patient This is a pleasant 56 years old -Ang[place] female with multiple medical problems.With past medical history of coronary artery disease, heart failure, GERD, hyperlipidemia, syncope, recurrent UTI, DVT. Status post AICD and pacemaker. Presents because of low back pain with gait difficulty. Patient states that she has back pain about 7/10, she still moving with difficulty mainly for weakness in her left lower extremity. She could walk however with a walker presents from today. at bedside. Denies any other complaints no chest pain or dyspnea. No urine or bowel incontinence. No fever. No abdominal pain or vomiting. No headache. No dizziness. Hemodynamically stable. Labs showing improving leukocytosis down to 10.4. INR is therapeutic 2.8. Patient continued on Coumadin for now PT/OT recommended subacute rehab. Patient was sitting at bedside and asking me to discharge her today however because of ongoing weakness which going to consult orthopedic spine surgeon Dr. Alegre, bedside nurse informed Patient currently kept on doxycycline, prednisone 40 mg and warfarin. Also she is on Dilaudid and baclofen Objective - Vital Signs Vital signs: Vital Signs Temp 97.8 F 09/05/21 08:00 Pulse 89 09/05/21 08:00 Resp 22 09/05/21 08:00 BP 120/76 09/05/21 08:00 Pulse Ox 100 09/05/21 08:00 Intake & Output 09/04/21 09/05/21 09/05/21 18:59 06:59 18:59 Intake Total 600 456 Balance 600 456 Intake: Oral 600 456 Other: Voiding Method Toilet Toilet # Voids 1 3 - Exam -GENERAL: The patient is alert and oriented x3, not in any acute distress. Morbidly obese HEENT: Pupils are round and equally reacting to light. EOMI. No scleral icterus. No conjunctival pallor. Normocephalic, atraumatic. No pharyngeal erythema. No thyromegaly. CARDIOVASCULAR: S1 and S2 present. No murmurs, rubs, or gallops. PULMONARY: Chest is clear to auscultation, no wheezing or crackles. ABDOMEN: Soft, nontender, nondistended, normoactive bowel sounds. No palpable organomegaly. MUSCULOSKELETAL: No joint swelling or deformity. EXTREMITIES: No cyanosis, clubbing, or pedal edema. -NEUROLOGICAL: Gross cranial nerves are grossly intact. Left leg flexion is weaker on the left side. Leg and knee flexible and extension is 5/5 in both legs. Ankle movement is 5/5 on both sides. Upper extremity strength is 5/5. Sensation is intact. SKIN: No rashes. no petechiae. - Labs CBC & Chem 7: 09/05/21 06:20 09/05/21 06:20 Labs: Abnormal Lab Results - Last 24 Hours (Table) 09/01/21 09/05/21 09/05/21 Range/Units 06:17 06:20 06:20 WBC 10.44 H (4.50-10.00) X 10*3/uL RDW 14.6 H (11.5-14.5) % Immature Gran # 0.05 H (0.00-0.04) X 10*3/uL Eosinophils # 0.01 L (0.04-0.35) X 10*3/uL PT 27.0 H (9.0-12.0) sec INR 2.8 H (<1.2) Sodium 156 H (135-145) mmol/L Chloride 116 H (96-109) mmol/L Carbon Dioxide 11.8 L (21.6-31.8) mmol/L Anion Gap 27.70 H (4.00-12.00) mmol/L Est GFR (CKD-EPI)AfAm 56.4 L (60.0-200.0) Est GFR (CKD-EPI)NonAf 48.7 L (60.0-200.0) BUN/Creatinine Ratio 10.33 L (12.00-20.00) Ratio Albumin/Globulin Ratio 1.41 L (1.60-3.17) g/dL Assessment and Plan Assessment: Low back pain, Sciatic With pain going to both legs Left leg weakness Possible UTI with negative urine culture. Mostly asymptomatic bacteriuria History of DVT, on Coumadin History of heart failure History of coronary artery disease Hyperlipidemia Status post AICD and pacemaker History of syncope History of GERD Plan: This is a pleasant 56 years old female who presents with low back pain and leg weakness. Continue with prednisone, consult orthopedic team Continue with doxycycline Patient is on warfarin pharmacy to dose Pain management and muscle relaxants Follow-up INR Labs and medication were reviewed.. Continue same treatment. Continue with symptomatic treatment. Resume home medication. Monitor lytes and vitals. DVT and GI prophylaxis. Further recommendationsas per clinical course of the patient DVT prophylaxis: On Coumadin GI Prophylaxis: Ppi PT/OT: Recommended subacute rehab Prognosis is guarded
[2021-09-06 06:03] LABS: INR 3.6 (<1.2); Prothrombin Time 34.9 sec (9.0-12.0)
[2021-09-06 08:15] LABS: Glucose,Whole Blood 85 mg/dL (75-99)
[2021-09-06] MEDS: HYDROcodone/APAP 10-325MG 1 EACH TAB PO PRN ×3 (08:15→21:20)
[2021-09-06] MEDS: SPIRONOLACTONE 25 MG TAB PO SCH (08:16)
[2021-09-06] MEDS: PANTOPRAZOLE 40 MG TABLET PO SCH (08:17)
[2021-09-06] MEDS: ISOSORBIDE MONONITRATE ER 30 MG TAB.ER.24H PO SCH (08:17)
[2021-09-06] MEDS: predniSONE 20 MG TAB PO SCH (08:17)
[2021-09-06] MEDS: DOXYCYCLINE 100 MG CAP PO SCH ×2 (08:17→21:22)
[2021-09-06] MEDS: hydrALAZINE HCL 25 MG TAB PO SCH ×2 (08:17→21:22)
[2021-09-06] MEDS: carvediloL 12.5 MG TAB PO SCH ×2 (08:17→17:45)
[2021-09-06] MEDS: BACLOFEN 10 MG TAB PO SCH ×3 (08:17→21:20)
[2021-09-06] MEDS: INSULIN ASPART (NovoLOG) 100 UNIT/ML VIAL SQ SCH ×4 (08:17→20:37)
--- NOTE | 2021-09-06 09:21 | P.CNOR ---
History of Present Illness - [facility] Consult date: 09/06/21 Requesting physician: Jona Chino Consult reason: other (Left lower extremity radiculopathy and weakness) History of present illness: Patient is a very pleasant 56-year-old female who is seen and examined the bedside for further evaluation regards to her left lower extremity radiculopathy and weakness. She states she is known have sustained a fall last year and fractured her coccyx. This has healed without difficulty but she does have some increased pain with weather change. Most significantly she has some chronic back pain that is actively controlled but states since 07/22/2021 she has been experiencing severe pain in her left buttock and radiating down the left lower extremity. She denies any specific injuries. She states she has presented to [facility] for further evaluation on multiple occasions and was discharged home. She followed with Dr. Nicholas in pain management and last week her pain was so severe in the office and recommended she present to [facility] for further evaluation. She was admitted at that time. She states she has pain in her left buttock and some weakness with her left leg. She states the pain radiates down the thigh and into the left. She has difficulty with ambulation due to her leg pain. She states her leg pain is exacerbated while standing. She denies extremity weakness or radiculopathy. She states her chronic back pain is well-controlled. She has been ambulating with the assistance of a walker. She is able to void without difficulty. She is eating without difficulty. Patient is known to have a medical history of coronary artery bypass graft surgery with valve replacement and is on Coumadin. Her INR was 4.5 at presentation to the hospital. Consultation with pain manag ement was placed to discuss possible injections. She was evaluated by pain management did not feel she was a tear for injections at that time given her elevated INR. Her INR had improved down to 2.8 but has elevated this morning back to 3.6. Patient is known to have an AICD, hyperlipidemia, nicotine dependence, obesity and essential hypertension. She is unable to have an MRI. Patient states she was playing discharged to [facility] today. During her multiple presentations to the emergency department she has had imaging of her spine taking including a lumbar CT and left hip CT. Past Medical History Past Medical History: Coronary Artery Disease (CAD), Chest Pain / Angina, Heart Failure, GERD/Reflux, Hyperlipidemia, Myocardial Infarction (NC), Syncope Additional Past Medical History / Comment(s): Recent UTI, nonischemic cardiomyopathy, anemia in past, DVT, past stress test Last Myocardial Infarction Date:: 2007 History of Any Multi-Drug Resistant Organisms: None Reported Past Surgical History: AICD, Cholecystectomy, Heart Catheterization, Pacemaker, Tubal Ligation Additional Past Surgical History / Comment(s): 2006 AICD at [facility], 08/01/[address] Pb aortic valve replaced Past Anesthesia/Blood Transfusion Reactions: No Reported Reaction Additional Past Anesthesia/Blood Transfusion Reaction / Comm: Pt has received blood in past without reaction. Type of Cardiac Device: AICD Device Placement Date:: 2006 Past Psychological History: No Psychological Hx Reported Smoking Status: Current every day smoker Past Alcohol Use History: None Reported Past Drug Use History: None Reported - Past Family History Father Family Medical History: Myocardial Infarction (NC) Additional Family Medical History / Comment(s): Father of a NC at the age of 60yrs. Mother Family Medical History: CVA/TIA, Seizure Disorder Additional Family Medical History / Comment(s): Mother had a CVA and seizures- had a trach and was comatose for 3 yrs before she . Medications and Allergies Home Medications Medication Instructions Recorded Confirmed Type Pravastatin Sodium [Pravachol] 40 mg PO HS 03/25/15 08/31/21 History lisinopriL 40 mg PO DAILY #30 tablet 03/27/15 08/31/21 Rx Aspirin EC [Ecotrin Low Dose] 81 mg PO DAILY 06/27/16 08/31/21 History Warfarin [Coumadin] 5 mg PO MOTUTH 05/01/17 08/31/21 History Warfarin [Coumadin] 10 mg PO SUWEFRSA 05/01/17 08/31/21 History Isosorbide Mononitrate ER [Imdur] 30 mg PO DAILY 05/02/17 08/31/21 History Nitroglycerin Sl Tabs [Nitrostat] 0.4 mg SUBLINGUAL Q5M PRN #30 tab 05/03/17 08/31/21 Rx hydrALAZINE HCL [Apresoline] 25 mg PO BID 11/13/17 08/31/21 History Carvedilol [Coreg] 25 mg PO BID 10/01/18 08/31/21 History Spironolactone 50 mg PO DAILY 05/31/21 08/31/21 History HYDROcodone/APAP 10-325MG [[place] 1 tab PO TID PRN 08/23/21 08/31/21 History 10-325] Allergies Allergy/AdvReac Type Severity Reaction Status Date / Time Penicillins Allergy Anaphylaxis Verified 08/31/21 12:42 shellfish derived [Shellfish] Allergy Anaphylaxis Verified 08/31/21 12:42 Physical Examination Physical exam: Patient is awake, alert, and oriented 3 Vital signs stable Good chest excursion with deep inspiration and expiration Examination of lumbar spine reveals skin is intact with no abrasions, lacerations, or bruises; no erythema, purulence or signs of infection No significant pain palpation at the lumbosacral spine Dorsiflexion, plantarflexion, and extensor hallucis longus positive sustained bilaterally No obvious weakness with dorsiflexion and plantarflexion on the left Straight leg test negative bilateral lower extremities No signs or symptoms of DVT; no calf pain Motor strength of the lower extremity is 4/5 including hip flexion on the left Motor strength lower extremities 5/5 throughout active range of motion on the right lower extremity including hip flexion, knee extension, dorsiflexion, and plantar flexion Some increased left buttock pain and left lower extremity radiculopathy with internal Our rotation of the left hip Neurovascularly intact Results Pertinent studies: CT of the left hip taken on 08/23/2021: Documentation states no acute osseous abnormality evident but upon further review there does appear to be a lucency/fracture line at the acetabulum in which we will request further reading by radiology; other findings suggestive for osteoarthritic degenerative changes at the left hip CT of the lumbar spine taken on 08/18/2021: L1-2 and L2-3 degenerative disc disease; L3-4 retrolisthesis, facet arthropathy and ligamentum flavum hypertrophy resulting in moderate central canal stenosis; L4-5 spondylolisthes is, facet arthropathy and ligament of flavum hypertrophy resulting in moderate central canal stenosis; L5-S1 vacuum disc phenomenon with posterior disc bulging with facet joint arthropathy with bilateral lateral recess stenosis - Labs Labs: Abnormal Lab Results - Last 24 Hours (Table) 09/05/21 09/05/21 09/05/21 Range/Units 06:20 17:29 20:22 WBC 10.44 H (4.50-10.00) X 10*3/uL RDW 14.6 H (11.5-14.5) % Immature Gran # 0.05 H (0.00-0.04) X 10*3/uL Eosinophils # 0.01 L (0.04-0.35) X 10*3/uL PT (9.0-12.0) sec INR (<1.2) POC Glucose (mg/dL) 130 H 134 H (75-99) mg/dL 09/06/21 Range/Units 05:11 WBC (4.50-10.00) X 10*3/uL RDW (11.5-14.5) % Immature Gran # (0.00-0.04) X 10*3/uL Eosinophils # (0.04-0.35) X 10*3/uL PT 34.9 H (9.0-12.0) sec INR 3.6 H (<1.2) POC Glucose (mg/dL) (75-99) mg/dL H & H 08/31/21 09/01/21 09/02/21 Range/Units 10:08 06:17 06:01 Hgb 15.9 13.6 12.9 D (11.4-16.0) gm/dL Hct 46.5 H 41.8 38.9 (34.0-46.0) % 09/03/21 09/04/21 09/05/21 Range/Units 06:38 04:59 06:20 Hgb 12.1 12.9 12.3 (11.4-16.0) gm/dL Hct 36.7 L 39.3 37.6 (34.0-46.0) % Coagulation 08/31/21 09/01/21 09/02/21 Range/Units 15:51 06:17 06:01 INR 4.4 H 4.5 H 2.3 H (<1.2) 09/03/21 09/04/21 09/05/21 Range/Units 06:38 04:59 06:20 INR 1.7 H 1.7 H 2.8 H (<1.2) 09/06/21 Range/Units 05:11 INR 3.6 H (<1.2) Result Diagrams: 09/05/21 06:20 09/05/21 06:20 Assessment and Plan Assessment: Assessment: Chronic low back pain Possible left acetabular fracture Left buttock and hip pain Left lower extremity radiculopathy L3-4 and L4-5 spinal central canal stenosis Left lower extremity weakness L3-4 retrolisthesis L4-5 spondylolisthesis L5-S1 significant degenerative disc disease with vacuum disc phenomenon Lumbar degenerative disc disease Lumbar facet arthropathy History of coronary artery bypass graft surgery with valve replacement Currently anticoagulation with Coumadin with elevated INR AICD placement Hyperlipidemia Nicotine dependence Essential hypertension Obesity (1) Chronic low back pain Current Visit: Yes Status: Acute Code(s): M54.50 - ; G89.29 - OTHER CHRONIC PAIN SNOMED Code(s): 697834817 (2) Acetabular fracture Current Visit: Yes Status: Acute Code(s): S32.409A - UNSP FRACTURE OF UNSP ACETABULUM, INIT FOR CLOS FX SNOMED Code(s): 83205745 (3) Left buttock pain Current Visit: Yes Status: Acute Code(s): M79.18 - MYALGIA, OTHER SITE SNOMED Code(s): 254655079 (4) Lumbar back pain with radiculopathy affecting left lower extremity Current Visit: Yes Status: Acute Code(s): M54.16 - RADICULOPATHY, LUMBAR REGION SNOMED Code(s): 405504793 (5) Spondylolisthesis, lumbar region Current Visit: Yes Status: Acute Code(s): M43.16 - SPONDYLOLISTHESIS, LUMBAR REGION SNOMED Code(s): 995214649414594 (6) Weakness of left lower extremity Current Visit: Yes Status: Acute Code(s): R29.898 - OTH SYMPTOMS AND SIGNS INVOLVING THE MUSCULOSKELETAL SYSTEM SNOMED Code(s): 206674636 (7) Lumbar facet arthropathy Current Visit: Yes Status: Acute Code(s): M47.816 - SPONDYLOSIS W/O M YELOPATHY OR RADICULOPATHY, LUMBAR REGION SNOMED Code(s): 794664055 (8) Lumbar degenerative disc disease Current Visit: Yes Status: Acute Code(s): M51.36 - OTHER INTERVERTEBRAL DISC DEGENERATION, LUMBAR REGION SNOMED Code(s): 15556473 (9) DDD (degenerative disc disease), lumbosacral Current Visit: Yes Status: Acute Code(s): M51.37 - OTHER INTERVERTEBRAL DISC DEGENERATION, LUMBOSACRAL REGION SNOMED Code(s): 38870852 (10) Nicotine dependence Current Visit: Yes Status: Acute Code(s): F17.200 - NICOTINE DEPENDENCE, UNSPECIFIED, UNCOMPLICATED SNOMED Code(s): 82216194 (11) Obesity Current Visit: Yes Status: Acute Code(s): E66.9 - OBESITY, UNSPECIFIED SNOMED Code(s): 199756446 (12) History of coronary artery bypass graft Current Visit: Yes Status: Acute Code(s): Z95.1 - PRESENCE OF AORTOCORONARY BYPASS GRAFT SNOMED Code(s): 878917396 (13) Elevated INR Current Visit: Yes Status: Acute Code(s): R79.1 - ABNORMAL COAGULATION PROFILE SNOMED Code(s): 184194030 (14) Current use of buttermaker helper anticoagulation Current Visit: Yes Status: Acute Code(s): Z79.01 - ROADABILITY MACHINE OPERATOR (CURRENT) USE OF ANTICOAGULANTS SNOMED Code(s): 925964214 (15) AICD (automatic cardioverter/defibrillator) present Current Visit: No Status: Acute Code(s): Z95.810 - PRESENCE OF AUTOMATIC (IMPLANTABLE) CARDIAC DEFIBRILLATOR SNOMED Code(s): 303749295 (16) HTN (hypertension) Current Visit: No Status: Acute Code(s): I10 - ESSENTIAL (PRIMARY) HYPERTENSION SNOMED Code(s): 84342989 (17) Hyperlipemia Current Visit: No Status: Acute Code(s): E78.5 - HYPERLIPIDEMIA, UNSPECIFIED SNOMED Code(s): 20577670 Plan: Plan: 1. Patient has been experiencing increased pain in her left buttock with pain radiating down the left lower extremity and into the calf. Her pain is most significant with standing and during ambulation. Her symptoms worsen the longer she ambulates. Her symptoms have been ongoing over the past 2-1/2 weeks without injury. She has had multiple imaging modalities including CT imaging of her lumbar spine and left hip. She does have degenerative changes in her lumbar spine most significant at L3-4 and L4-5 with spinal canal stenosis at both of these levels. She also has lumbar facet arthropathy, lumbar degenerative disc disease, L3-4 retrolisthesis and L4-5 spondylolisthesis. This could correlate her left lower extremity radiculopathy. She has had some difficulty ambulation with left buttock pain. After further reviewing of her CT imaging of her left hip I do see a lucency or fracture line at the acetabulum. Patient has been discussed in detail with Dr. Santillan in radiology is in the hospital today and has reread the CT imaging. He agrees he does see a line of lucency on CT imaging. Patient is unable to have an MRI due to her defibrillator placement. We will currently planned to obtain a bone scan to rule out acute fracture at her left hip. Radiology agrees this would be a good imaging modality as well. We discussed patient will be strict nonweightbearing on the left lower extremity until imaging is complete and is able to be reviewed. She may ambulate with the assistance of a walker. We will continue to follow with the patient. 2. Patient was planning for discharge to a rehabilitation facility today, but we discussed we will plan to hold her discharge pending further imaging and a plan of care proceeding forward. 3. Medicine will continue following the patient for her other medical diagnoses 4. Patient will plan to follow up with pain management in the outpatient setting for further treatment and evaluation. She is currently unable to undergo an injection in her lumbar spine due to her elevated INR. Lab testing from this morning states her INR has elevated again up to 3.6. Time with Patient: Greater than 30 (Including obtaining history, physical examination, reviewing of imaging, and dictation.)
[2021-09-06 10:01] VITALS: BMI 47.2
[2021-09-06 12:33] LABS: Glucose,Whole Blood 112 mg/dL (75-99)
[2021-09-06] MEDS: lisinopriL 20 MG TAB PO SCH (15:28)
[2021-09-06 17:28] LABS: Glucose,Whole Blood 140 mg/dL (75-99)
--- NOTE | 2021-09-06 17:38 | NM ---
EXAMINATION TYPE: NM bone/joint limited DATE OF EXAM: 09/06/2021 COMPARISON: NONE HISTORY: Left hip pain rule out acetabular fracture TECHNIQUE: After the intravenous administration of 23.7 mCi Tc 99m MDP. Images acquired 3 hours pos t injection. Multiple views of pelvis are submitted. There is no abnormal asymmetric uptake within left hip joint region. Mild focal increase in uptake in the bilateral sacroiliac joints noted. IMPRESSION: No focal asymmetric increase in uptake is seen in the region of the left hip joint to suggest osseous abnormality. Mild increase in uptake in the bilateral sacroiliac joints could reflect osteoarthrosis. If there is further clinical concern for left acetabular fracture recommend obtaining a left hip radi ograph series or a CT of the left hip.
[2021-09-06] MEDS ORDERED: WARFARIN 0.5 MG TAB PO ONE (18:00)
--- NOTE | 2021-09-06 19:18 | P.PN ---
Subjective Progress Note Date: 09/06/21 Linnette Walker, is a 56-year-old female patient who presented to the ER with concerns of ongoing back pain. Patient had originally presented to Dr. Nicholas and was directed to come to ER due to the severity of pain. Patient reports pain started initially last year when she had fallen and had been increasing over the past month according to lumbar CT patient has extensive degenerative disc disease. Patient has past medical history of coronary artery bypass graft surgery with valve replacement maintained on Coumadin. Additional medical history includes AICD, hyperlipidemia, nicotine dependence and essential hypertension. Patient denies any recent illness. UA positive for urinary tract infection. Patient also elevated creatinine 1.22 with signs of dehydration. At this time patient will be admitted pain service is consulted. Dilaudid ordered for pain control. Patient denies any chest pain or shortness breath. Patient denies nausea vomiting or diarrhea. Patient denies any urinary burning or frequency On 09/01/2021 patient's alert and oriented 3. Patient remains on [place] and D ilaudid for pain control. INR elevated. Pharmacy to dose Coumadin. Pain services consulted. Patient denies chest pain or shortness breath. Patient denies nausea vomiting or diarrhea. Patient denies any urinary burning or frequency On 09/02/2021 patient's alert and oriented 3. Patient was evaluated by pain services no plans for steroid injection at this time due to her INR recommendation for oral steroids and physical therapy. Patient will be given Solu-Medrol 1 time dose and start on prednisone 40 mg daily. Baclofen also added. Continue [place] and Dilaudid for pain control. At this time patient denies chest pain or shortness of breath. Patient denies nausea vomiting or diarrhea. Patient denies any urinary burning or frequency On 09/03/2021, 09/04/2021, 09/05/2021 patient was evaluated by Dr. Hand's group On 09/07/2021 patient was seen and examined on the medical floor, she is still complaining of back pain, yesterday she developed severe pain in the left lower back radiating to the abdomen, she was evaluated by internal medicine covering for nv, and orthopedic consultation was requested. Patient was evaluated by or so and a bone scan was ordered for today, otherwise patient denies any complaints there is no fever or chills no headache or dizziness no chest pain no shortness of breath no cough no nausea or vomiting no abdominal pain no diarrhea and no urinary symptoms Objective - Vital Signs Vital signs: Vital Signs Temp 97.7 F 09/06/21 07:57 Pulse 78 09/06/21 07:57 Resp 18 09/06/21 08:00 BP 121/83 09/06/21 07:57 Pulse Ox 100 09/06/21 07:57 Intake & Output 09/05/21 09/06/21 09/06/21 18:59 06:59 18:59 Intake Total 456 420 Balance 456 420 Weight 145.15 kg Intake: Oral 456 420 Other: Voiding Method Toilet Toilet Toilet # Voids 2 - Exam In general patient is alert and oriented 3 in no apparent distress Head normocephalic and atraumatic Neck supple no JVD no goiter Lungs clear to auscultation bilaterally no wheezing or crackles Heart regular rate and rhythm S1-S2, no rub or gallop Abdomen is soft nontender nondistended positive bowel sounds no hepatosplenomegaly Extremities no edema Neuro no gross focal neurological deficit - Labs CBC & Chem 7: 09/05/21 06:20 09/05/21 06:20 Labs: Abnormal Lab Results - Last 24 Hours (Table) 09/05/21 09/05/21 09/06/21 Range/Units 17:29 20:22 05:11 PT 34.9 H (9.0-12.0) sec INR 3.6 H (<1.2) POC Glucose (mg/dL) 130 H 134 H (75-99) mg/dL 09/06/21 Range/Units 12:28 PT (9.0-12.0) sec INR (<1.2) POC Glucose (mg/dL) 112 H (75-99) mg/dL Assessment and Plan Assessment: 1. Intractable back pain. Dilaudid added for pain control. Pain services following. Recommendation for steroids and physical therapy. Patient started on 1 dose of IV steroids and prednisone. Baclofen also added 2. Urinary tract infection. Urine culture ordered. Patient started on doxycycline 3. Evidence of dehydration. Continue gentle hydration resolved 4. Mechanical valve replacement. Patient is maintained on Coumadin. INR ordered daily 5. History of coronary artery disease 6. History of nonischemic cardiomyopathy with AICD placement 7. History of hyperlipidemia maintained on statin 8. History of essential hypertension DVT prophylaxis Coumadin. GI prophylaxis Protonix Pain services following Patient started on steroids and baclofen Doxycycline for UTI Urine culture pending
[2021-09-06 20:24] LABS: Glucose,Whole Blood 126 mg/dL (75-99)
[2021-09-06] MEDS: PRAVASTATIN SODIUM 40 MG TAB PO SCH (21:22)
[2021-09-07] MEDS: HYDROcodone/APAP 10-325MG 1 EACH TAB PO PRN ×2 (05:58→13:23)
[2021-09-07 06:39] LABS: INR 2.6 (<1.2); Prothrombin Time 25.6 sec (9.0-12.0)
[2021-09-07 07:29] LABS: Glucose,Whole Blood 91 mg/dL (75-99)
[2021-09-07 08:04] VITALS: TEMP 96.6
[2021-09-07] MEDS: PANTOPRAZOLE 40 MG TABLET PO SCH (08:21)
[2021-09-07] MEDS: hydrALAZINE HCL 25 MG TAB PO SCH (08:21)
[2021-09-07] MEDS: predniSONE 20 MG TAB PO SCH (08:21)
[2021-09-07] MEDS: SPIRONOLACTONE 25 MG TAB PO SCH (08:21)
[2021-09-07] MEDS: BACLOFEN 10 MG TAB PO SCH (08:21)
[2021-09-07] MEDS: carvediloL 12.5 MG TAB PO SCH (08:21)
[2021-09-07] MEDS: ISOSORBIDE MONONITRATE ER 30 MG TAB.ER.24H PO SCH (08:22)
[2021-09-07] MEDS: INSULIN ASPART (NovoLOG) 100 UNIT/ML VIAL SQ SCH ×2 (08:22→13:03)
[2021-09-07] MEDS: DOXYCYCLINE 100 MG CAP PO SCH (08:22)
--- NOTE | 2021-09-07 10:57 | P.DS ---
Providers Date of admission: 09/03/21 08:13 Expected date of discharge: 09/07/21 Attending physician: Karly Kaplan Consults: 08/31/21 12:08 Consult Physician Urgent Consulting Provider: Artis Merritt Consult Reason/Comments: intractable back pain Do you want consulting provider notified?: Yes 09/05/21 14:06 Consult Physician Urgent Consulting Provider: Lloyd Alegre Consult Reason/Comments: low back pain and gait difficulty Do you want consulting provider notified?: Yes Primary care physician: Karly Rosaura [facility] Course: Discharge Diagnosis 1. Intractable back pain. Dilaudid added for pain control. Pain services following. Recommendation for steroids and physical therapy. Patient started on 1 dose of IV steroids and prednisone. Baclofen also added 2. Urinary tract infection. Urine culture ordered. Patient started on doxycycline 3. Evidence of dehydration. Continue gentle hydration resolved 4. Mechanical valve replacement. Patient is maintained on Coumadin. INR ordered daily 5. History of coronary artery disease 6. History of nonischemic cardiomyopathy with AICD placement 7. History of hyperlipidemia maintained on statin 8. History of essential hypertension Hospital course Linnette Walker, is a 56-year-old female patient who presented to the ER with concerns of ongoing back pain. Patient had originally presented to Dr. Nicholas and was directed to come to ER due to the severity of pain. Patient reports pain started initially last year when she had fallen and had been increasing over the past month according to lumbar CT patient has extensive degenerative disc disease. Patient has past medical history of coronary artery bypass graft surgery with valve replacement maintained on Coumadin. Additional medical history includes AICD, hyperlipidemia, nicotine dependence and essential hypertension. Patient denies any recent illness. UA positive for urinary tract infection. Patient also elevated creatinine 1.22 with signs of dehydration. At this time patient will be admitted pain service is consulted. Dilaudid ordered for pain control. Patient denies any chest pain or shortness breath. Patient denies nausea vomiting or diarrhea. Patient denies any urinary burning or frequency On 09/01/2021 patient's alert and oriented 3. Patient remains on [place] and Dilaudid for pain control. INR elevated. Pharmacy to dose Coumadin. Pain services consulted. Patient denies chest pain or shortness breath. Patient denies nausea vomiting or diarrhea. Patient denies any urinary burning or frequency On 09/02/2021 patient's alert and oriented 3. Patient was evaluated by pain services no plans for steroid injection at this time due to her INR recommendation for oral steroids and physical therapy. Patient will be given Solu-Medrol 1 time dose and start on prednisone 40 mg daily. Baclofen also added. Continue [place] and Dilaudid for pain control. At this time patient efraín es chest pain or shortness of breath. Patient denies nausea vomiting or diarrhea. Patient denies any urinary burning or frequency On 09/03/2021, 09/04/2021, 09/05/2021 patient was evaluated by Dr. Hand's group On 09/06/2021 patient was seen and examined on the medical floor, she is still complaining of back pain, yesterday she developed severe pain in the left lower back radiating to the abdomen, she was evaluated by internal medicine covering for pr, and orthopedic consultation was requested. Patient was evaluated by or so and a bone scan was ordered for today, otherwise patient denies any complaints there is no fever or chills no headache or dizziness no chest pain no shortness of breath no cough no nausea or vomiting no abdominal pain no diarrhea and no urinary symptoms On 09/07/2021 patient's alert and oriented 3 patient was evaluated by orthopedic services and bone scan was completed. Bone scan negative and patient cleared for discharge from orthopedic services. Patient will be DC'd on prednisone taper baclofen and [place] for pain. Patient will be discharged to [facility] patient has complete a course of antibiotic urine culture negative known further need for antibiotics Patient Condition at Discharge: Stable Plan - Discharge Summary Discharge Rx Participant: Yes New Discharge Prescriptions: New predniSONE [Deltasone] 40 mg PO DAILY tab Baclofen [Lioresal] 10 mg PO TID #0 tab Continue Pravastatin Sodium [Pravachol] 40 mg PO HS lisinopriL 40 mg PO DAILY #30 tablet Aspirin EC [Ecotrin Low Dose] 81 mg PO DAILY Warfarin [Coumadin] 5 mg PO MOTUTH Warfarin [Coumadin] 10 mg PO SUWEFRSA Isosorbide Mononitrate ER [Imdur] 30 mg PO DAILY Nitroglycerin Sl Tabs [Nitrostat] 0.4 mg SUBLINGUAL Q5M PRN #30 tab PRN Reason: Chest Pain hydrALAZINE HCL [Apresoline] 25 mg PO BID Carvedilol [Coreg] 25 mg PO BID HYDROcodone/APAP 10-325MG [[place] 10-325] 1 tab PO TID PRN PRN Reason: Pain Spironolactone 50 mg PO DAILY Discharge Medication List Pravastatin Sodium [Pravachol] 40 mg PO HS 03/25/15 [History] lisinopriL 40 mg PO DAILY #30 tablet 03/27/15 [Rx] Aspirin EC [Ecotrin Low Dose] 81 mg PO DAILY 06/27/16 [History] Warfarin [Coumadin] 5 mg PO MOTUTH 05/01/17 [History] Warfarin [Coumadin] 10 mg PO SUWEFRSA 05/01/17 [History] Isosorbide Mononitrate ER [Imdur] 30 mg PO DAILY 05/02/17 [History] Nitroglycerin Sl Tabs [Nitrostat] 0.4 mg SUBLINGUAL Q5M PRN #30 tab 05/03/17 [Rx] hydrALAZINE HCL [Apresoline] 25 mg PO BID 11/13/17 [History] Carvedilol [Coreg] 25 mg PO BID 10/01/18 [History] Spironolactone 50 mg PO DAILY 05/31/21 [History] HYDROcodone/APAP 10-325MG [[place] 10-325] 1 tab PO TID PRN 08/23/21 [History] Baclofen [Lioresal] 10 mg PO TID #0 tab 09/07/21 [Rx] predniSONE [Deltasone] 40 mg PO DAILY tab 09/07/21 [Rx] Follow up Appointment(s)/Referral(s): Karly Kaplan MD [Primary Care Provider] - 1-2 days Activity/Diet/Wound Care/Special Instructions: activity as tolerated weight bearing as tolerated diet heart healthy
[2021-09-07 12:24] LABS: Glucose,Whole Blood 134 mg/dL (75-99)
[2021-09-07 12:31] VITALS: BP 127/76; PULSE 88
[2021-09-07] MEDS: lisinopriL 20 MG TAB PO SCH (12:31)
--- NOTE | 2021-09-07 14:07 | P.PN ---
Progress Note - Text Progress Note Date: 09/07/21 Orthopedics: History of present illness: Patient is a very pleasant 56-year-old female who is seen and examined the bedside for follow-up evaluation regards to her left lower extremity radiculopathy and weakness. Since being seen and examined yesterday a neutral medicine bone scan with a tentative the left hip was performed which was negative for osseous abnormality. She is able to resume ambulation her left lower extremity today and was able to work with physical therapy. She states she has been ambulating well in the hallways with the assistance of a walker. She feels a walker has provided good benefit after the height was adjusted by p [employer] therapy. She does have some chronic low back pain with some left lower extremity radiculopathy and states today her symptoms are much better controlled. She is ready for discharge today for discharge. She is currently eating at the bedside without any difficulty. She is very happy with her progress that she is made today as compared to yesterday. Patient is known to have a medical history of coronary artery bypass graft surgery with valve replacement and is on Coumadin, has an implanted AICD, hyperlipidemia, nicotine dependence, obesity and essential hypertension. She is unable to have an MRI. Patient states she is planning for discharged to [facility] today. Physical exam: Patient is awake, alert, and oriented 3 Vital signs stable Good chest excursion with deep inspiration and expiration Examination of lumbar spine reveals skin is intact with no abrasions, lacerations, or bruises; no erythema, purulence or signs of infection No significant pain palpation at the lumbosacral spine Dorsiflexion, plantarflexion, and extensor hallucis longus positive sustained bilaterally No obvious weakness with dorsiflexion and plantarflexion on the left Straight leg test negative bilateral lower extremities No signs or symptoms of DVT; no calf pain Patient is able to perform better active range of motion of the left lower extremity including hip flexion without increased pain or difficulty Motor strength lower extremities 5/5 throughout active range of motion on the right lower extremity including hip flexion, knee extension, dorsiflexion, and plantar flexion Neurovascularly intact Pertinent studies: Nuclear medicine bone scan of a joint with attention to the left hip taken on 09/06/2021: No focal asymmetric increased uptake seen in the region of the left hip joint to suggest osseous abnormality; mild increase uptake in the bilateral sacroiliac joints CT of the left hip taken on 08/23/2021: Documentation states no acute osseous abnormality evident but upon further review there does appear to be a lucency/fracture line at the acetabulum in which we will request further reading by radiology; other findings suggestive for osteoarthritic degenerative changes at the left hip CT of the lumbar spine taken on 08/18/2021: L1-2 and L2-3 degenerative disc disease; L3-4 retrolisthesis, facet arthropathy and ligamentum flavum hypertrophy resulting in moderate central canal stenosis; L4-5 spondylolisthesis, facet arthropathy and ligament of flavum hypertrophy resulting in moderate central canal stenosis; L5-S1 vacuum disc phenomenon with posterior disc bulging with facet joint arthropathy with bilateral lateral recess stenosis Assessment: Chronic low back pain No left acetabular fracture Left buttock and hip pain Left lower extremity radiculopathy L3-4 and L4-5 spinal central canal stenosis Left lower extremity weakness L3-4 retrolisthesis L4-5 spondylolisthesis L5-S1 significant degenerative disc disease with vacuum disc phenomenon Lumbar degenerative disc disease Lumbar facet arthropathy History of coronary artery bypass graft surgery with valve replacement Currently anticoagulation with Coumadin with elevated INR AICD placement Hyperlipidemia Nicotine dependence Essential hypertension Obesity Plan: 1. Since being seen exam yesterday patient did undergo a nuclear medicine bone scan of a joint with attention to the left hip. There was no focal asymmetric increased uptake in the region of the left hip to suggest osseous abnormality. She has been able to resume ambulation on her left lower extremity. She's been working with physical therapy to increase her mobility and ambulation. She has been using a walker to aid in ambulation. Her walker has been adjusted. She's been ambulating well. She feels her left lower extremity weakness and left hip pain has improved. Her chronic low back pain is improved as compared to yesterday. She is very happy with her progress. At this time, she is planned for discharge to [facility] rehabilitation facility today. We did discuss after further imaging did not show evidence of acetabular fracture and that she may continue to ambulate as tolerated on her left lower extremity. She may participate in regular activities of daily living to her tolerance. She is clear for discharge from an orthopedic spine standpoint. We will plan to have her follow up in outpatient setting approximately 3 for further evaluation. If her symptoms are well-controlled at that time, she may call and cancel her appointment. Patient may follow-up with Eber Peña PA-C or Dr. Tonio Alegre at [facility] in 2-3 weeks following discharge. 2. Patient will continue be seen exam by medicine for her other medical diagnoses. Medicine is planning for discharge today to [facility].
[2021-09-07] MEDS ORDERED: WARFARIN 10 MG TAB PO ONE (18:00)
== END 2021-09-07 13:59 | DRG 551 ==
LOC: EC 09:08 → 6NMEDSUR 13:27 → OBSVTOIN 09-03 08:13
PROVIDERS: ADMIT Internal Medicine; ATTEND Internal Medicine
DX: M51.17 Intervertebral disc disorders with radiculopathy, lumbosacral region (principal); S32.409A Unspecified fracture of unspecified acetabulum, initial encounter for closed fracture; N39.0 Urinary tract infection, site not specified; I42.8 Other cardiomyopathies; Z68.42 Body mass index [BMI] 45.0-49.9, adult; E86.0 Dehydration; Z20.822 Contact with and (suspected) exposure to COVID-19; E66.01 Morbid (severe) obesity due to excess calories; E78.5 Hyperlipidemia, unspecified; F17.210 Nicotine dependence, cigarettes, uncomplicated; G89.29 Other chronic pain; I11.0 Hypertensive heart disease with heart failure; I25.10 Atherosclerotic heart disease of native coronary artery without angina pectoris; M46.96 Unspecified inflammatory spondylopathy, lumbar region; I25.2 Old myocardial infarction; M16.12 Unilateral primary osteoarthritis, left hip; M43.16 Spondylolisthesis, lumbar region; M47.26 Other spondylosis with radiculopathy, lumbar region; M48.061 Spinal stenosis, lumbar region without neurogenic claudication; R79.1 Abnormal coagulation profile; Z79.01 Long term (current) use of anticoagulants; Z79.82 Long term (current) use of aspirin; Z79.899 Other long term (current) drug therapy; Z86.718 Personal history of other venous thrombosis and embolism; Z87.440 Personal history of urinary (tract) infections; Z95.1 Presence of aortocoronary bypass graft; Z95.2 Presence of prosthetic heart valve; Z95.810 Presence of automatic (implantable) cardiac defibrillator; Z88.0 Allergy status to penicillin; Z91.013 Allergy to seafood; Z90.49 Acquired absence of other specified parts of digestive tract; Z98.51 Tubal ligation status
CPT/HCPCS: 36415; 78300; 80048; 80053; 81001; 84145; 85025; 85610; 87086; 87635; 93005; 96361; 96374; 99285

== ENCOUNTER → 2021-10-14 | Outpatient (CLI) | payer MEDICARE ==
--- NOTE | 2021-10-17 10:17 | MM ---
Reason for exam: additional evaluation requested from prior study. Last mammogram was performed 8 months ago. History: Patient is postmenopausal. Family history of breast cancer in maternal grandmother at age 73. Physical Findings: Nurse did not find any significant physical abnormalities on exam. MG Diagnostic Mammo LT w CAD CC and MLO view(s) were taken of the left breast. Prior study comparison: January 31, 2021, bilateral MG screening mammo w CAD. December 03, 2019, bilateral MG screening mammo w CAD. There are scattered fibroglandular densities. There is chronic nodularity in the left breast. Left axillary pacemaker. These results were verbally communicated with the patient and result sheet given to the patient on 10/14/21. ASSESSMENT: Benign, BI-RAD 2 RECOMMENDATION: Return to routine screening mammogram schedule for both breasts. Back on schedule for January 2021.
--- NOTE | 2021-10-17 10:19 | USB ---
Reason for exam: follow-up at short interval from prior study. History: Patient is postmenopausal. Family history of breast cancer in maternal grandmother at age 73. US Breast Limited LT Left limited breast ultrasound including focal area of concern, retroareolar and axilla demonstrates a 0.3 x 0.2 x 0.4cm round, stable lesion too small to characterize at 12 o'clock, a 1.3 x 0.5 x 1.2cm oval, hypoechoic lesion at 1 o'clock, stable, suspect debris filled cyst and a 0.4 x 0.3 x 0.3cm stable lesion too small to characterize at 4 o'clock. Scanned 12-4 o'clock. These results were verbally communicated with the patient and result sheet given to the patient on 10/14/21. ASSESSMENT: Benign, BI-RAD 2 RECOMMENDATION: Return to routine screening mammogram schedule for both breasts. Back on schedule for January 2022.
== END | disposition home or self-care (01) ==
LOC: RADMAMWWP 13:07
PROVIDERS: ATTEND Internal Medicine
DX: N60.02 Solitary cyst of left breast (principal); R92.8 Other abnormal and inconclusive findings on diagnostic imaging of breast; Z80.3 Family history of malignant neoplasm of breast; Z78.0 Asymptomatic menopausal state
CPT/HCPCS: 77065

== ENCOUNTER 2021-11-03 02:56 | Emergency (ER) | payer MEDICARE ==
[2021-11-03 03:02] VITALS: BP 122/81; PULSE 88; RESP 24; TEMP 98.2
[2021-11-03] MEDS ORDERED: ORPHENADRINE 30 MG/ML 2 ML VIAL IM STA (03:48)
[2021-11-03] MEDS ORDERED: KETOROLAC 15 MG/ML 1 ML VIAL IM STA (03:49)
[2021-11-03] MEDS ORDERED: HYDROmorphone 1 MG/ML 1 ML SYRINGE IM STA (03:49)
--- NOTE | 2021-11-03 04:56 | ED ---
Back Pain [facility] - General Chief Complaint: Back Pain/Injury Stated Complaint: Leg Pain Time Seen by Provider: 11/03/21 03:04 Source: patient Limitations: no limitations - History of Present Illness Initial Comments: Linnette is a morbidly obese 56-year-old female with a history of low back pain with left-sided sciatica. She was recently hospitalized for pain management and transfer to a [facility] where she underwent daily physical therapy. Patient was discharged at the end of September had physical therapy until October 21. She reports she's been doing much better and was pain-free. Sunday this past weekend she went out shopping and was out for a number of hours walking around. Since that time she's been intractable severe low back pain radiating down her left leg. This is a regular exacerbation of her previous sciatica. Patient's taking her home [place] 10 and muscle however without improvement in her condition. - Related Data Home Medications Medication Instructions Recorded Confirmed Pravastatin Sodium [Pravachol] 40 mg PO HS 03/25/15 08/31/21 Aspirin EC [Ecotrin Low Dose] 81 mg PO DAILY 06/27/16 08/31/21 Warfarin [Coumadin] 5 mg PO MOTUTH 05/01/17 08/31/21 Warfarin [Coumadin] 10 mg PO SUWEFRSA 05/01/17 08/31/21 Isosorbide Mononitrate ER [Imdur] 30 mg PO DAILY 05/02/17 08/31/21 hydrALAZINE HCL [Apresoline] 25 mg PO BID 11/13/17 08/31/21 Carvedilol [Coreg] 25 mg PO BID 10/01/18 08/31/21 Spironolactone 50 mg PO DAILY 05/31/21 08/31/21 HYDROcodone/APAP 10-325MG [[place] 1 tab PO TID PRN 08/23/21 08/31/21 10-325] Previous Rx's Medication Instructions Recorded lisinopriL 40 mg PO DAILY #30 tablet 03/27/15 Nitroglycerin Sl Tabs [Nitrostat] 0.4 mg SUBLINGUAL Q5M PRN #30 tab 05/03/17 Baclofen [Lioresal] 10 mg PO TID #0 tab 09/07/21 predniSONE [Deltasone] 40 mg PO DAILY tab 09/07/21 Allergies Allergy/AdvReac Type Severity Reaction Status Date / Time Penicillins Allergy Anaphylaxis Verified 11/03/21 03:02 shellfish derived [Shellfish] Allergy Anaphylaxis Verified 11/03/21 03:02 Review of Systems ROS Statement: Those systems with pertinent positive or pertinent negative responses have been documented in the HPI. ROS Other: All systems not noted in ROS Statement are negative. Past Medical History Past Medical History: Coronary Artery Disease (CAD), Chest Pain / Angina, Heart Failure, GERD/Reflux, Hyperlipidemia, Myocardial Infarction (MS), Syncope Additional Past Medical History / Comment(s): Recent UTI, nonischemic cardiomyopathy, anemia in past, DVT, past stress test Last Myocardial Infarction Date:: 2007 History of Any Multi-Drug Resistant Organisms: None Reported Past Surgical History: AICD, Cholecystectomy, Heart Catheterization, Pacemaker, Tubal Ligation Additional Past Surgical History / Comment(s): 2006 AICD at [facility], 08/01/[address] Pb aortic valve replaced Past Anesthesia/Blood Transfusion Reactions: No Reported Reaction Additional Past Anesthesia/Blood Transfusion Reaction / Comment(s): Pt has received blood in past without reaction. Type of Cardiac Device: AICD Device Placement Date:: 2006 Past Psychological History: No Psychological Hx Reported Smoking Status: Current every day smoker Past Alcohol Use History: None Reported Past Drug Use History: None Reported - Past Family History Father Family Medical History: Myocardial Infarction (MS) Additional Family Medical History / Comment(s): Father of a MS at the age of 60yrs. Mother Family Medical History: CVA/TIA, Seizure Disorder Additional Family Medical History / Comment(s): Mother had a CVA and seizures- had a trach and was comatose for 3 yrs before she . General Exam - General Exam Comments Initial Comments: Physical Exam GENERAL: Morbidly obese, laying on right side, in acute distress secondary to pain HENT: Normocephalic, Atraumatic. EYES: PERRL, EOMI PULMONARY: Unlabored respirations. CARDIOVASCULAR: RRR Warm and well perfused extremities ABDOMEN: Non-distended SKIN: No rashes or bruising : Deferred NEUROLOGIC: Alert and oriented Normal speech Walks with cane MUSCULOSKELETAL: Moving all extremities with no apparent injury PSYCHIATRIC: No SI/HI Limitations: no limitations Course Vital Signs 11/03/21 02:58 Temperature 98.2 F Pulse Rate 88 Respiratory 24 Rate Blood Pressure 122/81 O2 Sat by Pulse 96 Oximetry Medical Decision Making - Medical Decision Making The patient was seen and evaluated, history is obtained from the patient, patient was treated with pain medications and muscle relaxer, upon reevaluation patient resting comfortably plan for discharge was discussed with the who is agreeable he was advised that they need to contact her primary care about further physical therapy. Patient will be prescribed steroids which she reports is helped her back pain in the past. Disposition Clinical Impression: Sciatica, left side Disposition: HOME SELF-CARE Condition: Stable Instructions (If sedation given, give patient instructions): Sciatica (ED) Additional Instructions: Contact primary care doctor to discuss further physical therapy for back/leg pain Is patient prescribed a controlled substance at d/c from ED?: No Referrals: Karly Kaplan MD [Primary Care Provider] - 1-2 days
== END 2021-11-03 05:20 | disposition home or self-care (01) ==
LOC: EC 02:56
DX: M54.42 Lumbago with sciatica, left side (principal); E66.01 Morbid (severe) obesity due to excess calories; I50.9 Heart failure, unspecified; I25.10 Atherosclerotic heart disease of native coronary artery without angina pectoris; I25.2 Old myocardial infarction; E78.5 Hyperlipidemia, unspecified; K21.9 Gastro-esophageal reflux disease without esophagitis; F17.200 Nicotine dependence, unspecified, uncomplicated; Z79.01 Long term (current) use of anticoagulants; Z79.82 Long term (current) use of aspirin; Z79.52 Long term (current) use of systemic steroids; Z79.899 Other long term (current) drug therapy; Z68.42 Body mass index [BMI] 45.0-49.9, adult
CPT/HCPCS: 99283; 96372 ×3; J2360; J1170; J1885

== ENCOUNTER 2021-12-15 07:03 | Day surgery (SDC) | payer MEDICARE ==
[2021-12-12 15:23] VITALS: BMI 46.5
[~2021-12-15 07:03] MED LIST: LACTATED RINGERS 1,000 ML IV SCH
[2021-12-15 08:00] VITALS: RESP 16; TEMP 96.8
[2021-12-15] MEDS ORDERED: LIDOCAINE 1% INJ 10MG/ML (20 ML MDV) ONE (08:16)
[2021-12-15] MEDS ORDERED: PROPOFOL 10 MG/ML 20 ML VIAL IV ONE (08:16)
[2021-12-15] MEDS ORDERED: PHENYLEPHRINE-0.9% NACL SYG 1,000 MCG/10 ML SYRINGE ONE (08:16)
--- NOTE | 2021-12-15 08:18 | P.GSHP ---
History of Present Illness H&P Date: 12/15/21 Chief Complaint: Screening colonoscopy This a 56-year-old female who presents today for screening colonoscopy. Patient denies a significant GI complaints. Past Medical History Past Medical History: Coronary Artery Disease (CAD), Chest Pain / Angina, Heart Failure, Deep Vein Thrombosis (DVT), GERD/Reflux, Hyperlipidemia, Myocardial Infarction ([place]), Syncope Additional Past Medical History / Comment(s): cardiomyopathy, anemia Last Myocardial Infarction Date:: 2007 History of Any Multi-Drug Resistant Organisms: None Reported Past Surgical History: AICD, Cholecystectomy, Heart Catheterization, Tubal Ligation Additional Past Surgical History / Comment(s): 2006 AICD at [facility], 08/01/05 mitral valve repair and St. Pb aortic valve replaced Past Anesthesia/Blood Transfusion Reactions: No Reported Reaction Additional Past Anesthesia/Blood Transfusion Reaction / Comment(s): Pt has received blood in past without reaction. Type of Cardiac Device: Permanent Pacemaker, AICD Device Placement Date:: 2006 Past Psychological History: No Psychological Hx Reported Smoking Status: Current every day smoker Past Alcohol Use History: None Reported Past Drug Use History: None Reported - Past Family History Father Family Medical History: Myocardial Infarction ([place]) Additional Family Medical History / Comment(s): Father of a [place] at the age of 60yrs. Mother Family Medical History: CVA/TIA, Seizure Disorder Additional Family Medical History / Comment(s): Mother had a CVA and seizures- had a trach and was comatose for 3 yrs before she . Medications and Allergies Home Medications Medication Instructions Recorded Confirmed Type Pravastatin Sodium [Pravachol] 40 mg PO HS 03/25/15 12/12/21 History lisinopriL 40 mg PO DAILY #30 tablet 03/27/15 12/12/21 Rx Aspirin EC [Ecotrin Low Dose] 81 mg PO DAILY 06/27/16 12/12/21 History Warfarin [Coumadin] 5 mg PO MOTUTH 05/01/17 12/12/21 History Warfarin [Coumadin] 10 mg PO SUWEFRSA 05/01/17 12/12/21 History Isosorbide Mononitrate ER [Imdur] 30 mg PO DAILY 05/02/17 12/12/21 History Nitroglycerin Sl Tabs [Nitrostat] 0.4 mg SUBLINGUAL Q5M PRN #30 tab 05/03/17 12/12/21 Rx hydrALAZINE HCL [Apresoline] 25 mg PO BID 11/13/17 12/12/21 History Carvedilol [Coreg] 25 mg PO BID 10/01/18 12/12/21 History Spironolactone 50 mg PO DAILY 05/31/21 12/12/21 History HYDROcodone/APAP 10-325MG [[place] 1 tab PO TID PRN 08/23/21 12/12/21 History 10-325] Allergies Allergy/AdvReac Type Severity Reaction Status Date / Time Penicillins Allergy Anaphylaxis Verified 12/15/21 07:38 shellfish derived [Shellfish] Allergy Anaphylaxis Verified 12/15/21 07:38 Surgical - Exam Vital Signs Temp Pulse Resp BP Pulse Ox 96.8 F L 77 16 115/59 95 12/15/21 07:59 12/15/21 07:59 12/15/21 07:59 12/15/21 07:59 12/15/21 07:59 - General well developed, well nourished, no distress - Eyes PERRL - ENT normal pinna, normal nares - Neck no masses - Respiratory normal expansion - Cardiovascular Rhythm: regular - Abdomen Abdomen: soft, non tender Assessment and Plan Assessment: We'll perform screening colonoscopy.
--- NOTE | 2021-12-15 08:30 | P.OP ---
Date of Procedure: 12/15/21 Preoperative Diagnosis: Screening colonoscopy Postoperative Diagnosis: External hemorrhoids Diverticulosis Procedure(s) Performed: Colonoscopy Anesthesia: MAC Surgeon: Efra Crowley Pathology: none sent Condition: stable Disposition: PACU Description of Procedure: The patient's placed on the endoscopy table in the lateral position. She received IV sedation. Digital rectal exam was performed. There were external hemorrhoids noted. The possible colonoscope was then placed patient anus passed throughout the entire colon. The ileocecal valve was visualized. The cecum, ascending and transverse colon appeared normal. In the descending and sigmoid colon there was mild diverticular changes. Scope summer back the rectum and this appeared normal. Scope withdrawn for patient.
[2021-12-15 09:00] VITALS: BP 107/62; PULSE 74
== END 2021-12-15 09:22 | disposition home or self-care (01) ==
LOC: ORWHC2ENDO 07:03
PROVIDERS: ATTEND Surgery
DX: Z12.11 Encounter for screening for malignant neoplasm of colon (principal); K57.30 Diverticulosis of large intestine without perforation or abscess without bleeding; K64.4 Residual hemorrhoidal skin tags; I25.10 Atherosclerotic heart disease of native coronary artery without angina pectoris; I11.0 Hypertensive heart disease with heart failure; I50.9 Heart failure, unspecified; K21.9 Gastro-esophageal reflux disease without esophagitis; E78.5 Hyperlipidemia, unspecified; Z86.718 Personal history of other venous thrombosis and embolism; I25.2 Old myocardial infarction; I42.9 Cardiomyopathy, unspecified; D64.9 Anemia, unspecified; Z90.49 Acquired absence of other specified parts of digestive tract; Z98.51 Tubal ligation status; Z95.810 Presence of automatic (implantable) cardiac defibrillator; Z98.890 Other specified postprocedural states; F17.200 Nicotine dependence, unspecified, uncomplicated; Z82.3 Family history of stroke; E66.9 Obesity, unspecified; Z68.42 Body mass index [BMI] 45.0-49.9, adult; Z79.01 Long term (current) use of anticoagulants; Z79.82 Long term (current) use of aspirin; Z79.899 Other long term (current) drug therapy; Z88.0 Allergy status to penicillin
CPT/HCPCS: J2001; J2370; J2704; G0121; 45378

== ENCOUNTER → 2022-01-19 | Outpatient (CLI) | payer MEDICARE ==
[2022-01-19 11:02] VITALS: BP 110/73; PULSE 79; RESP 18; TEMP 98.2
--- NOTE | 2022-01-19 11:12 | P.PN ---
Subjective Progress Note Date: 01/19/22 Principal diagnosis: A 56 yr old female with a history of severe and chronic low back pain secondary to lumbar degenerative disc diseases, spondylosis, spinal stenosis with facet arthropathy presents today for evaluation. Patient states she has 9 out of 10 lower back pain, constant, sharp, cramping in the middle and lower aspects of her lumbar spine with sharp radiating pain down her left buttock, left lower extremity and lateral aspect of her left ankle. Pain is provoked by weight bearing as she uses a cane for ambulatory assistance. Pain is alleviated with medications, topicals, heat, physical therapy currently, daily home stretching regimen, use of a cane for ambulation, massage and rest. Patient is currently on [place] and baclofen from Dr. Kaplan Patient denies any side effects of the medication(s), denies excessive drowsiness or sleepiness, denies suicidal ideation and reports that the current pain medication is helping to control the pain and improve activities of daily living. Patient denies any motor or sensory deficits. Patient denies any fever or night sweats, denies any change in the bowel movements or urination. Physical Examination: -Constitutional: Cooperative. Not in acute distress . -HEENT: Neck is supple. No lymphadenopathy. No thyromegaly. Normal thyroid size. Eyes: No ptosis , no icterus, no photophobia. ENT: No auditory deficits. Normal oropharynx. No Thrush. - Respiratory: Chest clear to auscultations bilaterally. No wheezing. No rhonchi. - Cardiovascular: Regular rate and rhythm. S1 / S2 , no S3 , no S4. - Gastrointestinal: Abdomen soft no tenderness. Bowel sounds positive in all four quadrants. No organomegaly. - Genitourinary: Deferred. - Neurologic: Cranial nerve II to XII intact. No focal neurological deficits. - Psychatric: Alert & oriented x 3. Matching mood & appropriate affect. Judgment and insight intact. - Lymphatic: No Lymphadenopathy. - Musculoskeletal: Cervical spine: Muscle bulk/ tone/ strength in the bilateral upper extremities normal. Facet loading test cervical area positive. Lumbar spine: Motor bulk/ tone/ strength lower extremities , thigh and legs : 5/5 Deep tendon reflexes : Normal Knee Jerk. Normal Ankle Jerk . Vertebral body tenderness to palpation over L3, L4, L5 Lumbar Facet Loading Test positive Straight Leg Raise: positive at 30 degrees right side/ left side Gaenslen's Test positive Sacral spine : Severe tenderness over the Sacroiliac joint: right side / left side Range of motion: Flexion of the lumbar spine <60 degrees Range of motion: Extension of the lumbar spine <20 degrees Gaenslen's Test positive Néstor test: positive right side / left side Assessment and plan: Chronic low back pain secondary to lumbar degenerative disc disease , lumbar spondylosis with facet arthropathy without myelopathy Recommendation of LESI L3-L4. May need a series of 3, within the six- month period, for optimal pain relief. Admits to Coumadin use. Admits she has medical clearance from her product architect. Denies medical history of diabetes mellitus. Risks, benefits of procedure discussed and patient verbalized understanding. All patient questions answered MAPS reviewed and it was appropriate. I have spent 31 minutes on patient care today. Dr Merritt was available by phone for the evaluation of this patient. The time was used to review the medical records including relevant urine studies and Prescription history (MAPs), review of the available imaging, evaluation and examination of the patient, coordination of care with the medical staff and if applicable referring physicians, as well as creation of the medical record Objective - Vital Signs Vital signs: Vital Signs Temp 98.2 F 01/19/22 10:54 Pulse 79 01/19/22 10:54 Resp 18 01/19/22 10:54 BP 110/73 01/19/22 10:54 Pulse Ox 95 01/19/22 10:54 Intake & Output 01/18/22 01/19/22 01/19/22 18:59 06:59 18:59 Weight 145.367 kg PQRS Measure Charge Sheet Mode of Arrival: Ambulatory, Cane - Pain Location Lower Back Non-Pharmacological Interventions: Heat, Home Exercise, Inactivity, Physical Therapy, Position/Reposition, Stretching Pharmacological Interventions: PRN Medication, Topical Medication PQRS Narrative: Smoking Status Current every day smoker Blood Pressure 110/73 Pain Intensity [Lower Back] 9 Scale Used Numeric (1 - 10) Hx Alcohol Use (MH) No Home Medications: Ambulatory Orders Pravastatin Sodium [Pravachol] 40 mg PO HS 03/25/15 lisinopriL 40 mg PO DAILY #30 tablet 03/27/15 Aspirin EC [Ecotrin Low Dose] 81 mg PO DAILY 06/27/16 Warfarin [Coumadin] 5 mg PO MOTUTH 05/01/17 Warfarin [Coumadin] 10 mg PO SUWEFRSA 05/01/17 Isosorbide Mononitrate ER [Imdur] 30 mg PO DAILY 05/02/17 Nitroglycerin Sl Tabs [Nitrostat] 0.4 mg SUBLINGUAL Q5M PRN #30 tab 05/03/17 hydrALAZINE HCL [Apresoline] 25 mg PO BID 11/13/17 Carvedilol [Coreg] 25 mg PO BID 10/01/18 Spironolactone 50 mg PO DAILY 05/31/21 HYDROcodone/APAP 10-325MG [[place] 10-325] 1 tab PO TID PRN 08/23/21
== END ==
LOC: PNWHC3 09:52
PROVIDERS: ATTEND Physician Assistant Medical
DX: G89.29 Other chronic pain (principal); M51.36 Other intervertebral disc degeneration, lumbar region; M47.816 Spondylosis without myelopathy or radiculopathy, lumbar region; F17.200 Nicotine dependence, unspecified, uncomplicated; Z79.01 Long term (current) use of anticoagulants; Z88.0 Allergy status to penicillin; Z91.013 Allergy to seafood
CPT/HCPCS: 99211

== ENCOUNTER → 2022-02-09 | Outpatient (CLI) | payer MEDICARE ==
--- NOTE | 2022-02-09 10:12 | P.PN ---
Subjective Progress Note Date: 02/09/22 Principal diagnosis: A 56 yr old wheelchair bound female with son & daughter via video call with a history of severe and chronic low back pain secondary to lumbar degenerative disc diseases and lumbar spondylosis with facet arthropathy presents today for evaluation. Due to patient's extensive medical history, medical clearance for Coumadin is to be accompanied with IV Heparin and short-stay and/or admission. Pt has a narcotic agreement signed with Dr Kaplan where she obtains [place] for her pain, which she states is becoming more and more ineffective. Pt would be best managed by orthopedic surgery as hospitalization regarding discontinuation of Coumadin is necessary. Patient is currently on [place] Patient denies any side effects of the medication(s), denies excessive drowsiness or sleepiness, denies suicidal ideation and reports that the current pain medication is helping to control the pain and improve activities of daily living. Patient denies any motor or sensory deficits. Patient denies any fever or night sweats, denies any change in the bowel movements or urination. Physical Examination: -Constitutional: Cooperative. Not in acute distress . -HEENT: Neck is supple. No lymphadenopathy. No thyromegaly. Normal thyroid size. Eyes: No ptosis , no icterus, no photophobia. ENT: No auditory deficits. Normal oropharynx. No Thrush. - Respiratory: Chest clear to auscultations bilaterally. No wheezing. No rhonchi. - Cardiovascular: Regular rate and rhythm. S1 / S2 , no S3 , no S4. - Gastrointestinal: Abdomen soft no tenderness. Bowel sounds positive in all four quadrants. No organomegaly. - Genitourinary: Deferred. - Neurologic: Cranial nerve II to XII intact. No focal neurological deficits. - Psychatric: Alert & oriented x 3. Matching mood & appropriate affect. Judgment and insight intact. - Lymphatic: No Lymphadenopathy. - Musculoskeletal: Cervical spine: Muscle bulk/ tone/ strength in the bilateral upper extremities normal. Facet loading test cervical area positive. Lumbar spine: Motor bulk/ tone/ strength lower extremities , thigh and legs : 5/5 Deep tendon reflexes : Normal Knee Jerk. Normal Ankle Jerk . Vertebral body tenderness to palpation over Lumbar Facet Loading Test positive Straight Leg Raise: positive at 30 degrees right side/ left side Gaenslen's Test positive Sacral spine : Severe tenderness over the Sacroiliac joint: right side / left side Range of motion: Flexion of the lumbar spine <60 degrees Range of motion: Extension of the lumbar spine <20 degrees Gaenslen's Test positive Néstor test: positive right side / left side Assessment and plan: Chronic low back pain secondary to lumbar degenerative disc disease , lumbar spondylosis with facet arthropathy without myelopathy Referral to Dr Betancur re: spinal stenosis, intractable pain and Coumadin/Heparin restrictions. Pt & daughter via video call are in agreement to follow up with an orthopedic surgeon referral of choice to speed up follow up. All patient questions answered MAPS reviewed and it was appropriate I have spent 31 minutes on patient care today. Dr Merritt was available by phone for the evaluation of this patient. The time was used to review the medical records including relevant urine studies and Prescription history (MAPs), review of the available imaging, evaluation and examination of the patient, coordination of care with the medical staff and if applicable referring physicians, as well as creation of the medical record PQRS Measure Charge Sheet PQRS Narrative: Smoking Status Current every day smoker Hx Alcohol Use (MH) No Home Medications: Ambulatory Orders Pravastatin Sodium [Pravachol] 40 mg PO HS 03/25/15 lisinopriL 40 mg PO DAILY #30 tablet 03/27/15 Aspirin EC [Ecotrin Low Dose] 81 mg PO DAILY 06/27/16 Warfarin [Coumadin] 5 mg PO MOTUTH 05/01/17 Warfarin [Coumadin] 10 mg PO SUWEFRSA 05/01/17 Isosorbide Mononitrate ER [Imdur] 30 mg PO DAILY 05/02/17 Nitroglycerin Sl Tabs [Nitrostat] 0.4 mg SUBLINGUAL Q5M PRN #30 tab 05/03/17 hydrALAZINE HCL [Apresoline] 25 mg PO BID 11/13/17 Carvedilol [Coreg] 25 mg PO BID 10/01/18 Spironolactone 50 mg PO DAILY 05/31/21 HYDROcodone/APAP 10-325MG [[place] 10-325] 1 tab PO TID PRN 08/23/21
[2022-02-09 12:00] VITALS: BP 121/79; PULSE 209; RESP 19; TEMP 98.7
== END ==
LOC: PNWHC3 08:48
PROVIDERS: ATTEND Specialist
DX: M51.36 Other intervertebral disc degeneration, lumbar region (principal); M47.816 Spondylosis without myelopathy or radiculopathy, lumbar region; G89.29 Other chronic pain; M48.061 Spinal stenosis, lumbar region without neurogenic claudication; F17.200 Nicotine dependence, unspecified, uncomplicated; Z88.0 Allergy status to penicillin; Z91.013 Allergy to seafood
CPT/HCPCS: 99211

== ENCOUNTER → 2022-02-24 | Outpatient (CLI) | payer MEDICARE ==
--- NOTE | 2022-02-27 10:30 | USB ---
Reason for exam: additional evaluation requested from abnormal screening. History: Patient is postmenopausal. Family history of breast cancer in maternal grandmother at age 73. Physical Findings: A clinical breast exam by your physician is recommended on an annual basis and results should be correlated with mammographic findings. US Breast Workup Limited LT Technologist: Catie Garcia Left limited breast ultrasound including focal area of concern, retroareolar and axilla demonstrates a 1.5 x 1.4 x 0.5cm oval, solid, vascular lesion at 1 o'clock, 4cm from nipple. Results were given to the patient verbally at the time of the exam. ASSESSMENT: Suspicious, BI-RAD 4 RECOMMENDATION: Ultrasound core biopsy of the left breast. Called office with mammographic findings and has scheduled an appointment for the patient for 03/22/22 at 11:[address] Kaplan. Biopsy scheduled for 03/15/22 at 10:00. PRELIMINARY REPORT CALLED AND FAXED TO DR. KAPLAN ON 02/27/22.
== END | disposition home or self-care (01) ==
LOC: RADUSWWP 13:48
PROVIDERS: ATTEND Internal Medicine
DX: N64.89 Other specified disorders of breast (principal); Z78.0 Asymptomatic menopausal state; Z80.3 Family history of malignant neoplasm of breast

== ENCOUNTER 2022-03-21 10:44 | Emergency (ER) | payer MEDICARE ==
[2022-03-21 10:49] VITALS: TEMP 97.8
[2022-03-21] MEDS ORDERED: MORPHINE SULFATE 4 MG/ML SYRINGE IM STA (12:02)
[2022-03-21] MEDS ORDERED: ORPHENADRINE 30 MG/ML 2 ML VIAL IM STA (12:02)
--- NOTE | 2022-03-21 12:10 | ED ---
General Adult HPI - General Chief complaint: Back Pain/Injury Stated complaint: back pain Time Seen by Provider: 03/21/22 11:25 Source: patient Mode of arrival: ambulatory Limitations: no limitations - History of Present Illness Initial comments: This 56-year-old female with chronic back pain and sciatica presents emergency department with increased left-sided paraspinal back pain radiating down the lateral side of left leg over the last few days. Patient states she has had sciatica on the left side for the last year, however she states she has had increased pain over the last few days. Patient states she ran out of her muscle relaxer at home. Patient states [facility] and is supposed to be getting injections into her back, however she has not heard back from them yet. Patient states she is able to get up and walk around but states she does have diffuse her cane. Patient states she does have [place] at home that she takes it does slightly help her pain. Patient states the pain as aching and she often gets pain radiating down the lateral side of her left leg. Patient denies any saddle anesthesia, bowel or bladder retention/incontinence, fever. She denies any chest pain, shortness breath, abdominal pain, nausea, vomiting, change in bowel or bladder, change in appetite, lightheadedness, dizziness, fever, headache, change in vision, rash, calf pain. She denies any loss of sensation or range of motion in either lower extremity but states when she sits or stands for long periods of time the lower back pain worsens. - Related Data Home Medications Medication Instructions Recorded Confirmed Pravastatin Sodium [Pravachol] 40 mg PO HS 03/25/15 03/21/22 Aspirin EC [Ecotrin Low Dose] 81 mg PO DAILY 06/27/16 03/21/22 Warfarin [Coumadin] 5 mg PO MOWEFR 05/01/17 03/21/22 Warfarin [Coumadin] 10 mg PO SUTUTHSA 05/01/17 03/21/22 Isosorbide Mononitrate ER [Imdur] 30 mg PO DAILY 05/02/17 03/21/22 hydrALAZINE HCL [Apresoline] 25 mg PO BID 11/13/17 03/21/22 Carvedilol [Coreg] 25 mg PO BID 10/01/18 03/21/22 Spironolactone 50 mg PO DAILY 05/31/21 03/21/22 HYDROcodone/APAP 10-325MG [[place] 1 tab PO Q8H PRN 08/23/21 03/21/22 10-325] Sacubitril/Valsartan [Entresto 24 1 tablet PO BID 02/27/22 03/21/22 mg-26 mg Tablet] Previous Rx's Medication Instructions Recorded Nitroglycerin Sl Tabs [Nitrostat] 0.4 mg SUBLINGUAL Q5M PRN #30 tab 05/03/17 Cyclobenzaprine [Flexeril] 10 mg PO TID #15 tab 03/21/22 predniSONE 50 mg PO DAILY #5 tablet 03/21/22 Allergies Allergy/AdvReac Type Severity Reaction Status Date / Time Penicillins Allergy Anaphylaxis Verified 03/21/22 11:43 shellfish derived [Shellfish] Allergy Anaphylaxis Verified 03/21/22 11:43 Review of Systems ROS Statement: Those systems with pertinent positive or pertinent negative responses have been documented in the HPI. ROS Other: All systems not noted in ROS Statement are negative. Past Medical History Past Medical History: Coronary Artery Disease (CAD), Chest Pain / Angina, Heart Failure, GERD/Reflux, Hyperlipidemia, Myocardial Infarction ([place]), Syncope Additional Past Medical History / Comment(s): Recent UTI, nonischemic cardiomyopathy, anemia in past, DVT, past stress test Last Myocardial Infarction Date:: 2007 History of Any Multi-Drug Resistant Organisms: None Reported Past Surgical History: AICD, Cholecystectomy, Heart Catheterization, Pacemaker, Tubal Ligation Additional Past Surgical History / Comment(s): 2006 AICD at [facility], 08/01/05 mitral valve repair and St. Pb aortic valve replaced Past Anesthesia/Blood Transfusion Reactions: No Reported Reaction Additional Past Anesthesia/Blood Transfusion Reaction / Comment(s): Pt has received blood in past without reaction. Type of Cardiac Device: AICD Device Placement Date:: 2006 Past Psychological History: No Psychological Hx Reported Smoking Status: Current every day smoker Past Alcohol Use History: None Reported Past Drug Use History: None Reported - Past Family History Father Family Medical History: Myocardial Infarction ([place]) Additional Family Medical History / Comment(s): Father of a [place] at the age of 60yrs. Mother Family Medical History: CVA/TIA, Seizure Disorder Additional Family Medical History / Comment(s): Mother had a CVA and seizures- had a trach and was comatose for 3 yrs before she . General Exam Limitations: no limitations General appearance: alert, in no apparent distress Head exam: Present: atraumatic, normocephalic, normal inspection Eye exam: Present: normal appearance, PERRL, EOMI. Absent: scleral icterus, conjunctival injection, periorbital swelling Pupils: Present: normal accommodation ENT exam: Present: normal exam, mucous membranes moist Neck exam: Present: normal inspection, full ROM. Absent: tenderness, meningismus, lymphadenopathy Respiratory exam: Present: normal lung sounds bilaterally. Absent: respiratory distress, wheezes, rales, rhonchi, stridor Cardiovascular Exam: Present: regular rate, normal rhythm, normal heart sounds. Absent: systolic murmur, diastolic murmur, rubs, gallop, clicks GI/Abdominal exam: Present: soft, normal bowel sounds. Absent: distended, tenderness, guarding, rebound, rigid Extremities exam: Present: normal inspection, full ROM, tenderness (Patient with pain to left lumbar paraspinal region and down lateral side of left leg to mid mora. Patient without any calf tenderness, warmth, erythema or sign of clot or infection. DP pulses palpated bilaterally 2+/4+), normal capillary refill. Absent: pedal edema, joint swelling, calf tenderness Back exam: Present: normal inspection, full ROM (Patient unable to twist [id number] this states it increases her pain significantly. Patient states the pain worsens when going from lying to sitting or standing for long periods of time), paraspinal tenderness (Patient with left lumbar paraspinal tenderness to palpation). Absent: CVA tenderness (R), CVA tenderness (L), vertebral tenderness Neurological exam: Present: alert, oriented X3, CN II-XII intact. Absent: motor sensory deficit Psychiatric exam: Present: normal affect, normal mood Skin exam: Present: warm, dry, intact, normal color. Absent: rash Course Vital Signs 03/21/22 10:47 Temperature 97.8 F Pulse Rate 74 Respiratory 22 Rate Blood Pressure 134/83 O2 Sat by Pulse 99 Oximetry Medical Decision Making - Medical Decision Making This 56-year-old female presents emergency Department with chronic left lumbar back pain and left-sided sciatica times one year, worsening over the last week. Patient states she ran out of her also relaxant and since then her pain has increased. Patient states she does have [place] at home and is waiting to hear back from an orthopedic doctor for steroid injections. Patient is able to walk and get around at home as usual, she states she does use a cane which she has been using. She states the pain worsens when she stands for long periods of time or sits for long periods of time. Flexeril and steroids given the patient. Instructed patient to continue her [place] as prescribed. Directed patient to follow-up with orthopedics in next 1-2 days. Instructed patient to follow-up with her primary care provider next 1-2 days. Strict return precautions were discussed. Patient verbally agreed to plan. Patient sent home in stable condition. Case discussed in detail with my attending, . Disposition Clinical Impression: Sciatica of left side Disposition: HOME SELF-CARE Condition: Stable Instructions (If sedation given, give patient instructions): Sciatica (ED), Lumbar Radiculopathy (ED), Lower Back Exercises (ED) Additional Instructions: Please follow-up with your orthopedic doctor in next 1-2 days. Follow-up with her primary care provider next 1-2 days. Return to the emergency department with any new, worsening, or concerning symptoms. Take medications as directed. Prescriptions: Cyclobenzaprine [Flexeril] 10 mg PO TID #15 tab predniSONE 50 mg PO DAILY #5 tablet Is patient prescribed a controlled substance at d/c from ED?: No Referrals: Karly Kaplan MD [Primary Care Provider] - 1-2 days Papo Torrez DO [Doctor of Osteopathic Medicine] - 1-2 days Jaden Tristan PAC [PHYSICIAN MED CARE MANAGER] - 1-2 days Time of Disposition: 12:10
[2022-03-21 13:00] VITALS: BP 142/84; PULSE 89; RESP 18
== END 2022-03-21 13:00 | disposition home or self-care (01) ==
LOC: EC 10:44
DX: M54.42 Lumbago with sciatica, left side (principal); I25.2 Old myocardial infarction; I25.10 Atherosclerotic heart disease of native coronary artery without angina pectoris; Z79.82 Long term (current) use of aspirin; F17.200 Nicotine dependence, unspecified, uncomplicated; Z88.0 Allergy status to penicillin; Z91.013 Allergy to seafood
CPT/HCPCS: 99283; 96372; J2270; J2360

== ENCOUNTER 2022-04-05 16:45 | Observation (INO) | payer MEDICARE, OTHER ==
[2022-04-05] MEDS ORDERED: NITROGLYCERIN SL TABS 0.4 MG TAB SUBLINGUAL PRN (18:08)
[2022-04-05] MEDS ORDERED: HEPARIN SODIUM 1,000 UN/ML (10ML VL) IV PRN (18:27)
[2022-04-05] MEDS ORDERED: HEPARIN SODIUM 1,000 UN/ML (10ML VL) IV ONE (18:27)
[2022-04-05 19:08] LABS: Basophils # (A) 0.1 k/uL (0-0.2); Basophils % (A) 1 %; Eosinophils # (A) 0.2 k/uL (0-0.7); Eosinophils % (A) 2 %; HCT 43.4 % (34.0-46.0); HGB 13.5 gm/dL (11.4-16.0); Lymphocytes # (A) 2.3 k/uL (1.0-4.8); Lymphocytes % (A) 24 %; MCH 28.6 pg (25.0-35.0); MCHC 31.2 g/dL (31.0-37.0); MCV 91.7 fL (80.0-100.0); Mean Platelet Volume 8.2; Monocytes # (A) 0.6 k/uL (0-1.0); Monocytes % (A) 6 %; Neutrophils # (A) 6.4 k/uL (1.3-7.7); Neutrophils % (A) 66 %; Platelet Count 280 k/uL (150-450); RBC 4.73 m/uL (3.80-5.40); RDW 13.9 % (11.5-15.5); WBC 9.6 k/uL (3.8-10.6)
[2022-04-05 19:16] LABS: ALT 10 U/L (4-34); AST 19 U/L (14-36); African American GFR (CKD) 83 (>60 ml/min/1.73 sqM); Albumin 3.9 g/dL (3.5-5.0); Albumin/Globulin Ratio 1.3; Alkaline Phosphatase 84 U/L (38-126); Anion Gap 5 mmol/L; Blood Urea Nitrogen 9 mg/dL (7-17); Calcium 8.8 mg/dL (8.4-10.2); Carbon Dioxide 26 mmol/L (22-30); Chloride 109 mmol/L (98-107); Glucose 84 mg/dL (74-99); INR 1.9 (<1.2); Non-African American GFR(CKD) 72 (>60 ml/min/1.73 sqM); Partial Thromboplastin Time 36.2 sec (22.0-30.0); Potassium 4.1 mmol/L (3.5-5.1); Prothrombin Time 19.2 sec (9.0-12.0); Sodium 140 mmol/L (137-145); Total Bilirubin 0.3 mg/dL (0.2-1.3); Total Protein 6.9 g/dL (6.3-8.2)
[2022-04-05] MEDS: PRAVASTATIN SODIUM 40 MG TAB PO SCH (19:22)
[2022-04-05] MEDS: carvediloL 12.5 MG TAB PO SCH (19:22)
[2022-04-05] MEDS: BACLOFEN 10 MG TAB PO SCH (19:22)
[2022-04-05] MEDS: HEPARIN SOD,PORK IN 0.45% NACL 25,000 UNIT in 0.45% NACL 1 250ML.BAG IV SCH (19:23)
[2022-04-05] MEDS: SACUBITRIL/VALSARTAN 24 MG-26 MG TABLET PO SCH (19:24)
[2022-04-06] MEDS: HYDROcodone/APAP 10-325MG 1 EACH TAB PO PRN ×3 (01:07→19:24)
[2022-04-06] MEDS: hydrALAZINE HCL 25 MG TAB PO SCH ×3 (03:36→21:27)
[2022-04-06 06:53] LABS: INR 1.7 (<1.2); Partial Thromboplastin Time 65.5 sec (22.0-30.0); Prothrombin Time 16.9 sec (9.0-12.0)
[2022-04-06 09:26] LABS: Basophils # (A) 0.03 X 10*3/uL (0.00-0.10); Basophils % (A) 0.3 %; Eosinophils # (A) 0.16 X 10*3/uL (0.04-0.35); Eosinophils % (A) 1.8 %; HCT 40.4 % (37.2-46.3); HGB 12.9 g/dL (12.0-15.0); Immature Grans, Automated 0.3 %; Lymphocytes # (A) 2.79 X 10*3/uL (0.90-5.00); Lymphocytes % (A) 30.9 %; MCH 28.7 pg (27.0-32.0); MCHC 31.9 g/dL (32.0-37.0); Mean Platelet Volume 11.3 fL (9.5-12.2); Monocytes # (A) 0.74 X 10*3/uL (0.20-1.00); Monocytes % (A) 8.2 %; NRBC Per 100 WBC 0 /100 WBCS (0.0-0.0); Neutrophils # (A) 5.28 X 10*3/uL (1.80-7.70); Neutrophils % (A) 58.5 %; Platelet Count 283 X 10*3/uL (140-440); RBC 4.49 X 10*6/uL (4.10-5.20); RDW 15.1 % (11.5-14.5); WBC 9.03 X 10*3/uL (4.50-10.00)
[2022-04-06] MEDS: ASPIRIN 81 MG PO SCH (09:31)
[2022-04-06] MEDS: carvediloL 12.5 MG TAB PO SCH ×2 (09:32→18:06)
[2022-04-06] MEDS: SPIRONOLACTONE 25 MG TAB PO SCH (09:32)
[2022-04-06] MEDS: ISOSORBIDE MONONITRATE ER 30 MG TAB.ER.24H PO SCH (09:32)
[2022-04-06] MEDS: SACUBITRIL/VALSARTAN 24 MG-26 MG TABLET PO SCH ×2 (09:33→21:27)
--- NOTE | 2022-04-06 10:03 | P.CRDCN ---
History of Present Illness History of present illness: HISTORY OF PRESENTING ILLNESS This is a pleasant 56-year-old female past medical history significant for nonischemic cardiomyopathy status post single-chamber ICD placement, chronic heart failure with reduced ejection fraction, hypertension, dyslipidemia, mitral mechanical valve replacement on Coumadin, history of aortic valve replacement with metallic valve 2004, paroxysmal atrial fibrillation chronic nicotine dependence. She follows in the office with Dr. Garcia. We have been asked to see in consultation for artificial valve. Patient is seen and examined at bedside. Patient was a direct admit per Dr. Gama for possible ultrasound core biopsy of the left breast, patient underwent ultrasound of the left breast on 02/24/2022 which found a focal area of concern on the left breast. Overall patient is feeling well, denies any chest pain, shortness of breath, nausea, vomiting, lightheadedness, dizziness, syncope or near syncope. Patient's Coumadin is currently held and she is on IV heparin DIAGNOSTICS No EKG available at the time of this dictation. Patient is not on telemetry at time of dictation as well Most recent echocardiogram 06/2021 revealed an EF of 18%, mild LVH, RVSP 34 mmHg, ascending aorta is enlarged Laboratory reviewed, WBC 9, hemoglobin 12.9, platelets 283, INR 1.7, sodium 140, potassium 4.1, BUN 9, serum creatinine 0.8 Current home medications include pravastatin, warfarin, spironolactone, Entresto 2426 milligrams twice a day, nitro, Imdur, carvedilol 25 mg twice a day, aspirin 81 mg daily Cardiac catheterization in 2018 revealed normal coronary arteries REVIEW OF SYSTEMS At the time of my exam: CONSTITUTIONAL: Denies fever or chills. CARDIOVASCULAR: Denies chest pain, shortness of breath, orthopnea, PND or palpitations. RESPIRATORY: Denies cough. GASTROINTESTINAL: Denies abdominal pain, diarrhea, constipation, nausea or vomiting. MUSCULOSKELETAL: Denies myalgias. NEUROLOGIC: Denies numbness, tingling, headacbe or weakness. ENDOCRINE: Denies fatigue, weight change, polydipsia or polyurina. GENITOURINARY: Denies burning, hematuria or urgency with micturation. HEMATOLOGIC: Denies history of anemia or bleeding. PHYSICAL EXAMINATION Blood pressure 119/81, heart rate 72, afebrile, saturation 99% on room air CONSTITUTIONAL: No apparent distress. HEENT: Head is normocephalic. Pupils are equal, round. Sclerae anicteric. Mucous membranes of the mouth are moist. No JVD. No carotid bruit. CHEST EXAMINATION: Lungs are clear to auscultation. No chest wall tenderness is noted on palpation or with deep breathing. HEART EXAMINATION: Regular rate and rhythm. S1, S2 heard. No murmurs, gallops or rub. ABDOMEN: Soft, nontender. Positive bowel sounds. EXTREMITIES: 2+ peripheral pulses, no lower extremity edema and no calf tenderness. NEUROLOGIC EXAMINATION: Patient is awake, alert and oriented x3. ASSESSMENT Focal area of concern on the left breast seen on ultrasound of the left breast on 02/24/2022 History of Mitral mechanical valve replacement on Coumadin History of aortic valve replacement with metallic valve 2004 History of paroxysmal atrial fibrillation Nonischemic cardiomyopathy status post single-chamber ICD placement Chronic heart failure with reduced ejection fraction Hypertension Dyslipidemia Chronic tobacco use PLAN Continue IV Heparin at this time pending plan for breast biopsy Recommend bridging patient Monitor INRs Continue home cardiac medications Rest per primary Nurse practitioner note has been reviewed by physician. Signing provider agrees with the documented findings, assessment, and plan of care. Past Medical History Past Medical History: Coronary Artery Disease (CAD), Chest Pain / Angina, Heart Failure, GERD/Reflux, Hyperlipidemia, Myocardial Infarction ([place]), Syncope Additional Past Medical History / Comment(s): Recent UTI, nonischemic cardiomyopathy, anemia in past, DVT, past stress test Last Myocardial Infarction Date:: 2007 History of Any Multi-Drug Resistant Organisms: None Reported Past Surgical History: AICD, Cholecystectomy, Heart Catheterization, Pacemaker, Tubal Ligation Additional Past Surgical History / Comment(s): 2007 AICD at [facility], 08/01/05 mitral [address] repair [address]. Pb aortic valve replaced Past Anesthesia/Blood Transfusion Reactions: No Reported Reaction Additional Past Anesthesia/Blood Transfusion Reaction / Comment(s): Pt has received blood in past without reaction. Type of Cardiac Device: AICD Device Placement Date:: 2006 Past Psychological History: No Psychological Hx Reported Additional Psychological History / Comment(s): Pt resides with significant other. She does not drive-her significant other takes her to appts. Smoking Status: Current every day smoker Past Alcohol Use History: None Reported Additional Past Alcohol Use History / Comment(s): Pt started smoking in 1990 a pack will last 3 days Past Drug Use History: None Reported - Past Family History Father Family Medical History: Myocardial Infarction ([place]) Additional Family Medical History / Comment(s): Father of a [place] at the age of 60yrs. Mother Family Medical History: CVA/TIA, Seizure Disorder Additional Family Medical History / Comment(s): Mother had a CVA and seizures- had a trach and was comatose for 3 yrs before she . Medications and Allergies Home Medications Medication Instructions Recorded Confirmed Type Pravastatin Sodium [Pravachol] 40 mg PO 03/25/15 04/05/22 History Aspirin EC [Ecotrin Low Dose] 81 mg PO DAILY 06/27/16 04/05/22 History Warfarin [Coumadin] 5 mg PO MOWEFR@1800 05/01/17 04/05/22 History Warfarin [Coumadin] 10 mg PO SUTUTHSA@1800 05/01/17 04/05/22 History Isosorbide Mononitrate ER [Imdur] 30 mg PO DAILY 05/02/17 04/05/22 History hydrALAZINE HCL [Apresoline] 25 mg PO BID 11/13/17 04/05/22 History Carvedilol [Coreg] 25 mg PO BID 10/01/18 04/05/22 History Spironolactone 50 mg PO DAILY 05/31/21 04/05/22 History HYDROcodone/APAP 10-325MG [[place] 1 tab PO Q8H PRN 08/23/21 04/05/22 History 10-325] Sacubitril/Valsartan [Entresto 24 1 tab PO BID 02/27/22 04/05/22 History mg-26 mg Tablet] Baclofen 10 mg PO HS 04/05/22 04/05/22 History Nitroglycerin Sl Tabs [Nitrostat] 0.4 mg SL Q5M PRN 04/05/22 04/05/22 History Allergies Allergy/AdvReac Type Severity Reaction Status Date / Time Penicillins Allergy Anaphylaxis Verified 04/05/22 17:51 shellfish derived [Shellfish] Allergy Anaphylaxis Verified 04/05/22 17:51 Physical Exam Vitals: Vital Signs Temp Pulse Resp BP Pulse Ox 04/06/22 02:23 98.1 F 75 18 92/61 96 04/05/22 20:00 18 04/05/22 19:39 98.2 F 86 18 104/72 99 04/05/22 17:11 98.8 F 96 18 103/72 96 Intake and Output 04/05/22 04/06/22 04/06/22 22:59 06:59 14:59 Intake Total 66 Balance 66 Intake: Intake, IV Titration 66 Amount Heparin Sod,Pork in 0.45% 66 NaCl 25,000 unit In 0.45 % NaCl 1 250ml.bag @ 6. 9988 UNITS/KG/HR 10 mls/ hr IV .Q24H [facility] Rx#: [id number] Other: # Voids 1 1 Weight 142.882 kg Results 04/06/22 06:09 04/05/22 18:45 Cardiac Enzymes 04/05/22 Range/Units 18:45 AST 19 (14-36) U/L Coagulation 04/05/22 04/06/22 04/06/22 Range/Units 18:45 00:44 06:09 PT 19.2 H 16.9 H (9.0-12.0) sec APTT 36.2 H 42.0 H 65.5 H (22.0-30.0) sec CBC 04/05/22 Range/Units 18:45 WBC 9.6 (3.8-10.6) k/uL RBC 4.73 (3.80-5.40) m/uL Hgb 13.5 (11.4-16.0) gm/dL Hct 43.4 (34.0-46.0) % Plt Count 280 (150-450) k/uL Comprehensive Metabolic Panel 04/05/22 Range/Units 18:45 Sodium 140 (137-145) mmol/L Potassium 4.1 (3.5-5.1) mmol/L Chloride 109 H (98-107) mmol/L Carbon Dioxide 26 (22-30) mmol/L BUN 9 (7-17) mg/dL Creatinine 0.89 (0.52-1.04) mg/dL Glucose 84 (74-99) mg/dL Calcium 8.8 (8.4-10.2) mg/dL AST 19 (14-36) U/L ALT 10 (4-34) U/L Alkaline Phosphatase 84 (38-126) U/L Total Protein 6.9 (6.3-8.2) g/dL Albumin 3.9 (3.5-5.0) g/dL Current Medications Generic Name Dose Route Start Last Admin Trade Name Freq PRN Reason Stop Dose Admin Hydrocodone Bitart/Acetaminophen 1 each 04/05/22 18:08 04/06/22 01:07 Hydrocodone/Apap 10-325mg 1 Each Tab PO 1 each Q8H PRN Administration Pain Aspirin 81 mg 04/06/22 09:00 Aspirin 81 Mg PO DAILY EVA Baclofen 10 mg 04/05/22 21:00 04/05/22 19:22 Baclofen 10 Mg Tab PO 10 mg HS EVA Administration Carvedilol 25 mg 04/05/22 21:00 04/05/22 19:22 Carvedilol 12.5 Mg Tab PO 25 mg BID-W/MEALS EVA Administration Heparin Sodium (Porcine) 0 unit 04/05/22 18:27 04/06/22 02:03 Heparin Sodium 1,000 Un/Ml (10ml Vl) IV 3,572 unit PER PROTOCOL PRN Administration Low PTT Protocol Hydralazine HCl 25 mg 04/05/22 21:00 04/06/22 03:36 Hydralazine Hcl 25 Mg Tab PO Not Given BID [facility] Heparin Sodium/Sodium Chloride 250 mls @ 10 mls/hr 04/05/22 18:30 04/06/22 01:59 25,000 unit/ Sodium Chloride IV 8.998 units/kg/hr .Q24H [facility] 12.857 mls/hr Titration Protocol 6.9988 UNITS/KG/HR Isosorbide Mononitrate 30 mg 04/06/22 09:00 Isosorbide Mononitrate Er 30 Mg Tab.Er.24h PO DAILY EVA Nitroglycerin 0.4 mg 04/05/22 18:08 Nitroglycerin Sl Tabs 0.4 Mg Tab SUBLINGUAL Q5M PRN Chest Pain Pravastatin Sodium 40 mg 04/05/22 21:00 04/05/22 19:22 Pravastatin Sodium 40 Mg Tab PO 40 mg HS EVA Administration Sacubitril/Valsartan 1 each 04/05/22 21:00 04/05/22 19:24 Sacubitril/Valsartan 24 Mg-26 Mg Tablet PO 1 each BID EVA Administration Spironolactone 50 mg 04/06/22 09:00 Spironolactone 25 Mg Tab PO DAILY EVA Intake and Output 04/05/22 04/06/22 04/06/22 22:59 06:59 14:59 Intake Total 66 Balance 66 Intake: Intake, IV Titration 66 Amount Heparin Sod,Pork in 0.45% 66 NaCl 25,000 unit In 0.45 % NaCl 1 250ml.bag @ 6. 9988 UNITS/KG/HR 10 mls/ hr IV .Q24H [facility] Rx#: [id number] Other: # Voids 1 1 Weight 142.882 kg 04/05/22 18:45 04/05/22 18:45
--- NOTE | 2022-04-06 13:22 | P.HPIM ---
History of Present Illness H&P Date: 04/05/22 Linnette Walker, is a 56 year old female who was admitted to [facility] due to abnormal mammogram and need for core biopsy of the left breast. Patient has a known history of nonischemic cardiomyopathy and history of aortic valve replacement with metallic valve in 2004 and mitral valve replacement, patient is maintained on Coumadin. Recommendation per cardiology is to remain all the time on Coumadin and to bridge with IV heparin whenever Coumadin needs to be discontinued. Patient is admitted to medical floor and was started on IV heparin, Coumadin is on hold at this time, consultation for radiology was initiated for left breast core biopsy. Past Medical History Past Medical History: Coronary Artery Disease (CAD), Chest Pain / Angina, Heart Failure, GERD/Reflux, Hyperlipidemia, Myocardial Infarction ([place]), Syncope Additional Past Medical History / Comment(s): Recent UTI, nonischemic cardiomyopathy, anemia in past, DVT, past stress test Last Myocardial Infarction Date:: 2007 History of Any Multi-Drug Resistant Organisms: None Reported Past Surgical History: AICD, Cholecystectomy, Heart Catheterization, Pacemaker, Tubal Ligation Additional Past Surgical History / Comment(s): 2006 AICD at [facility], 08/01/05 mitral valve repair [address]. Pb aortic valve replaced Past Anesthesia/Blood Transfusion Reactions: No Reported Reaction Additional Past Anesthesia/Blood Transfusion Reaction / Comment(s): Pt has received blood in past without reaction. Type of Cardiac Device: AICD Device Placement Date:: 2006 Past Psychological History: No Psychological Hx Reported Additional Psychological History / Comment(s): Pt resides with significant other. She does not drive-her significant other takes her to [employer]. Smoking Status: Current every day smoker Past Alcohol Use History: None Reported Additional Past Alcohol Use History / Comment(s): Pt started smoking in 1990 a pack will last 3 days Past Drug Use History: None Reported - Past Family History Father Family Medical History: Myocardial Infarction ([place]) Additional Family Medical History / Comment(s): Father of a [place] at the age of 60yrs. Mother Family Medical History: CVA/TIA, Seizure Disorder Additional Family Medical History / Comment(s): Mother had a CVA and seizures- had a trach and was comatose for 3 yrs before she . Medications and Allergies Home Medications Medication Instructions Recorded Confirmed Type Pravastatin Sodium [Pravachol] 40 mg PO HS 03/25/15 04/05/22 History Aspirin EC [Ecotrin Low Dose] 81 mg PO DAILY 06/27/16 04/05/22 History Warfarin [Coumadin] 5 mg PO MOWEFR@1800 05/01/17 04/05/22 History Warfarin [Coumadin] 10 mg PO SUTUTHSA@1800 05/01/17 04/05/22 History Isosorbide Mononitrate ER [Imdur] 30 mg PO DAILY 05/02/17 04/05/22 History hydrALAZINE HCL [Apresoline] 25 mg PO BID 11/13/17 04/05/22 History Carvedilol [Coreg] 25 mg PO BID 10/01/18 04/05/22 History Spironolactone 50 mg PO DAILY 05/31/21 04/05/22 History HYDROcodone/APAP 10-325MG [[place] 1 tab PO Q8H PRN 08/23/21 04/05/22 History 10-325] Sacubitril/Valsartan [Entresto 24 1 tab PO BID 02/27/22 04/05/22 History mg-26 mg Tablet] Baclofen 10 mg PO HS 04/05/22 04/05/22 History Nitroglycerin Sl Tabs [Nitrostat] 0.4 mg SL Q5M PRN 04/05/22 04/05/22 History Allergies Allergy/AdvReac Type Severity Reaction Status Date / Time Penicillins Allergy Anaphylaxis Verified 04/05/22 17:51 shellfish derived [Shellfish] Allergy Anaphylaxis Verified 04/05/22 17:51 Physical Exam Vitals: Vital Signs Temp Pulse Resp BP Pulse Ox 04/05/22 17:11 98.8 F 96 18 103/72 96 Intake and Output 04/05/22 04/05/22 04/05/22 06:59 14:59 22:59 Other: Weight 142.882 kg In general patient is alert and oriented x 3 in no distress HEENT head normocephalic and atraumatic Neck is supple no JVD no goiter no lymphadenopathy no carotid bruit Chest examination is clear to auscultation no crackles no wheezing Cardiac exam reveals regular heart sounds S1 and S2 no gallops no murmurs Abdomen is soft nontender no organomegaly with normal bowel sounds Extremity exam reveals no edema no cyanosis or clubbing Neurological examination reveals no gross focal deficits Results CBC & Chem 7: 04/06/22 06:09 04/05/22 18:45 Thrombosis Risk Factor Assmnt - Choose All That Apply Each Factor Represents 1 point: Age 41-60 years Thrombosis Risk Factor Assessment Total Risk Factor Score: 1 Thrombosis Risk Factor Assessment Level: Low Risk Assessment and Plan Plan: Abnormal mammogram patient is admitted for left breast core biopsy, radiology consultation requested Artificial aortic valve an artificial mitral valve patient should be maintained on anticoagulation at all time, at this time we are holding Coumadin patient is maintained on IV heparin cardiology consultation was requested Underlying history of paroxysmal atrial fibrillation Underlying history of nonischemic cardiomyopathy Underlying history of hypertension Underlying history of hyperlipidemia At this time patient is admitted to medical floor and started on IV heparin, Coumadin is on hold Will check PT and INR daily Consults for radiology initiated for left breast core biopsy Home medications reviewed and reordered Will follow closely
[2022-04-06] MEDS: HEPARIN SOD,PORK IN 0.45% NACL 25,000 UNIT in 0.45% NACL 1 250ML.BAG IV SCH (18:05)
[2022-04-06] MEDS: BACLOFEN 10 MG TAB PO SCH (19:24)
[2022-04-06] MEDS: PRAVASTATIN SODIUM 40 MG TAB PO SCH (21:27)
[2022-04-07] MEDS: HYDROcodone/APAP 10-325MG 1 EACH TAB PO PRN (05:38)
[2022-04-07 07:31] LABS: INR 1.2 (<1.2); Prothrombin Time 12.9 sec (9.0-12.0)
[2022-04-07 07:53] VITALS: BP 101/71; PULSE 76; RESP 18; TEMP 98
[2022-04-07] MEDS ORDERED: WARFARIN 5 MG TAB PO SCH (09:15)
[2022-04-07] MEDS ORDERED: ENOXAPARIN 150 MG/ML SYRINGE SQ SCH (09:30)
[2022-04-07] MEDS: SACUBITRIL/VALSARTAN 24 MG-26 MG TABLET PO SCH (09:37)
[2022-04-07] MEDS: ISOSORBIDE MONONITRATE ER 30 MG TAB.ER.24H PO SCH (09:38)
[2022-04-07] MEDS: SPIRONOLACTONE 25 MG TAB PO SCH (09:38)
[2022-04-07] MEDS: hydrALAZINE HCL 25 MG TAB PO SCH (09:38)
[2022-04-07] MEDS: carvediloL 12.5 MG TAB PO SCH (09:38)
[2022-04-07] MEDS: ASPIRIN 81 MG PO SCH (09:38)
--- NOTE | 2022-04-07 10:41 | P.PN ---
Subjective This is a pleasant 56-year-old female past medical history significant for nonischemic cardiomyopathy status post single-chamber ICD placement, chronic heart failure with reduced ejection fraction, hypertension, dyslipidemia, mitral mechanical valve replacement on Coumadin, history of aortic valve replacement with metallic valve 2004, paroxysmal atrial fibrillation chronic nicotine dependence. She follows in the office with Dr. Garcia. We have been asked to see in consultation for artificial valve. Patient is seen and examined at bedside. Patient was a direct admit per Dr. Gama for possible ultrasound core biopsy of the left breast, patient underwent ultrasound of the left breast on 02/24/2022 which found a focal area of concern on the left breast. Overall patient is feeling well, denies any chest pain, shortness of breath, nausea, vomiting, lightheadedness, dizziness, syncope or near syncope. Patient's Coumadin is currently held and she is on IV heparin DIAGNOSTICS Most recent echocardiogram 06/2021 revealed an EF of 18%, mild LVH, RVSP 34 mmHg, ascending aorta is enlarged Cardiac catheterization in 2018 revealed normal coronary arteries 04/07/2022 Patient seen and examined at bedside, no distress. She underwent biopsy of left breast yesterday. She continues to be IV heparin. Her INR is 1.2 She denies any chest pain or shortness of breath. PHYSICAL EXAMINATION blood pressure 101/71, heart rate 76, afebrile, oxygen saturations 98% on room air CONSTITUTIONAL: No apparent distress. HEENT: Neck Supple. No JVD. CHEST EXAMINATION: Lungs are clear to auscultation. No chest wall tenderness is noted on palpation or with deep breathing. HEART EXAMINATION: Regular rate and rhythm. S1, S2 heard. No murmurs, gallops or rub. ABDOMEN: Soft, nontender. Positive bowel sounds. EXTREMITIES: 2+ peripheral pulses, no lower extremity edema and no calf tenderness. NEUROLOGIC EXAMINATION: Patient is awake, alert and oriented x3. ASSESSMENT Focal area of concern on the left breast seen on ultrasound of the left breast on 02/24/2022 Status post left breast biopsy. History of Mitral mechanical valve replacement on Coumadin History of aortic valve replacement with metallic valve 2004 History of paroxysmal atrial fibrillation Nonischemic cardiomyopathy status post single-chamber ICD placement Chronic heart failure with reduced ejection fraction Hypertension Dyslipidemia Chronic tobacco use PLAN Recommend transitioning to coumadin, stop heparin Recommend bridging the patient with Lovenox We will start Coumadin 5mg daily Give 140mg Lovenox BID Monitor INRs as an outpatient Follow up with Dr. Garcia in 1 week Continue home cardiac medications Nurse practitioner note has been reviewed by physician. Signing provider agrees with the documented findings, assessment, and plan of care. Objective - Vital Signs Vital signs: Vital Signs Temp 98 F 04/07/22 07:52 Pulse 76 04/07/22 07:52 Resp 18 04/07/22 07:52 BP 101/71 04/07/22 07:52 Pulse Ox 98 04/07/22 07:52 Intake & Output 04/06/22 04/07/22 04/07/22 18:59 06:59 18:59 Intake Total 420 118 Balance 420 118 Intake: Intake, IV Titration 184 Amount Heparin Sod,Pork in 0.45% 184 NaCl 25,000 unit In 0.45 % NaCl 1 250ml.bag @ 6. 9988 UNITS/KG/HR 10 mls/ hr IV .Q24H [facility] Rx#: [id number] Oral 236 118 Other: # Voids 1 1 1 - Labs CBC & Chem 7: 04/06/22 06:09 04/05/22 18:45 Labs: Abnormal Lab Results - Last 24 Hours (Table) 04/07/22 Range/Units 06:51 PT 12.9 H (9.0-12.0) sec INR 1.2 H (<1.2) APTT 41.0 H (22.0-30.0) sec
--- NOTE | 2022-04-07 11:45 | P.DS ---
Providers Date of admission: 04/05/22 16:45 Expected date of discharge: 04/07/22 Attending physician: Karly Kaplan Consults: 04/05/22 18:06 Consult Physician Routine Consulting Provider: Oscar Estrada Consult Reason/Comments: breast biopsy Do you want consulting provider notified?: Yes Consult Physician Routine Consulting Provider: Abida Youngblood Consult Reason/Comments: artificial valve Do you want consulting provider notified?: Yes Primary care physician: Stated None Hospital Course: Discharge diagnosis Abnormal mammogram patient is admitted for left breast core biopsy, radiology consultation requested Artificial aortic valve an artificial mitral valve patient should be maintained on anticoagulation at all time, at this time we are holding Coumadin patient is maintained on IV heparin cardiology consultation was requested Underlying history of paroxysmal atrial fibrillation Underlying history of nonischemic cardiomyopathy Underlying history of hypertension Underlying history of hyperlipidemia Hospital course Linnette Walker, is a 56 year old female who was admitted to [facility] due to abnormal mammogram and need for core biopsy of the left breast. Patient has a known history of nonischemic cardiomyopathy and history of aortic valve replacement with metallic valve in 2004 and mitral valve replacement, patient is maintained on Coumadin. Recommendation per cardiology is to remain all the time on Coumadin and to bridge with IV heparin whenever Coumadin needs to be discontinued. Patient is admitted to medical floor and was started on IV heparin, Coumadin is on hold at this time, consultation for radiology was initiated for left breast core biopsy. On 04/07/2022 patient is alert and oriented 3. Patient did have biopsy completed. Per cardiology service is patient may be discharged home with bridging of Lovenox. Patient reports she has done this before. Lovenox and Coumadin scripts have been written per cardiology patient will follow-up on Sunday in cardiology office for INR check. Patient to receive dose of Coumadin and Lovenox prior to discharge. At this time patient denies chest pain or shortness of breath. Patient denies nausea vomiting or diarrhea. Patient denies any urinary burning or frequency Patient Condition at Discharge: Stable Plan - Discharge Summary Discharge Rx Participant: No New Discharge Prescriptions: New Warfarin [Coumadin] 5 mg PO DAILY@1800 tab Enoxaparin [Lovenox] 140 mg SQ Q12HR 5 Days #10 each Continue Pravastatin Sodium [Pravachol] 40 mg PO HS Isosorbide Mononitrate ER [Imdur] 30 mg PO DAILY hydrALAZINE HCL [Apresoline] 25 mg PO BID Carvedilol [Coreg] 25 mg PO BID HYDROcodone/APAP 10-325MG [[place] 10-325] 1 tab PO Q8H PRN PRN Reason: Pain Baclofen 10 mg PO HS Nitroglycerin Sl Tabs [Nitrostat] 0.4 mg SL Q5M PRN PRN Reason: Chest Pain Spironolactone 50 mg PO DAILY Sacubitril/Valsartan [Entresto 24 mg-26 mg Tablet] 1 tab PO BID Discontinued Aspirin EC [Ecotrin Low Dose] 81 mg PO DAILY Warfarin [Coumadin] 5 mg PO MOWEFR@1800 Warfarin [Coumadin] 10 mg PO SUTUTHSA@1800 Discharge Medication List Pravastatin Sodium [Pravachol] 40 mg PO HS 03/25/15 [History] Isosorbide Mononitrate ER [Imdur] 30 mg PO DAILY 05/02/17 [History] hydrALAZINE HCL [Apresoline] 25 mg PO BID 11/13/17 [History] Carvedilol [Coreg] 25 mg PO BID 10/01/18 [History] Spironolactone 50 mg PO DAILY 05/31/21 [History] HYDROcodone/APAP 10-325MG [[place] 10-325] 1 tab PO Q8H PRN 08/23/21 [History] Sacubitril/Valsartan [Entresto 24 mg-26 mg Tablet] 1 tab PO BID 02/27/22 [History] Baclofen 10 mg PO HS 04/05/22 [History] Nitroglycerin Sl Tabs [Nitrostat] 0.4 mg SL Q5M PRN 04/05/22 [History] Enoxaparin [Lovenox] 140 mg SQ Q12HR 5 Days #10 each 04/07/22 [Rx] Warfarin [Coumadin] 5 mg PO DAILY@1800 tab 04/07/22 [Rx] Follow up Appointment(s)/Referral(s): Julius Garcia MD [STAFF PHYSICIAN] - 04/18/22 11:00 am Ambulatory/Diagnostic Orders: Prothrombin Time INR [LAB.AMB] Location: None Selected Patient Instructions/Handouts: Enoxaparin (By injection), How to Give a Subcutaneous Injection (DC) Activity/Diet/Wound Care/Special Instructions: Please go to the [facility] on [address], [place] On Sunday, April 10 Between 8:30AM-12:30PM to get your INR checked AND adjustment of your Coumadin.
--- NOTE | 2022-04-21 11:31 | USB ---
Risk Values: Rosa 5 year model risk: 0.9%. NCI Lifetime model risk: 5.7%. Prior Study Comparison: 02/07/2021 Left Diagnostic Mammogram, [facility]. 10/14/2021 Left Diagnostic Mammogram, [facility]. 02/22/2022 Bilateral Screening Mammogram, [facility]. Pathology Description: Location: 1 o'clock, upper outer quadrant, anterior. Needle Type: Tray-Cut Cores: 5 Skin Nicks: 1 Gauge: 18 ULTRASOUND GUIDED CORE BIOPSY LEFT BREAST: CLINICAL HISTORY: 1:00 left breast lesion FINDINGS: The procedure was explained to the patient. The risks, complications, benefits and alternatives were discussed and any questions were answered. Informed consent was obtained. Patient was placed supine on the ultrasound table and prepped and draped in the usual sterile fashion. Utilizing a 18 gauge needle, five passes were made into the requested left breast 1:00 lesion. Patient was stable throughout the procedure. Pathology is pending. All elements of maximal barrier and sterile technique were utilized. IMPRESSION: 1. Successful ultrasound guided core biopsy left breast. Pathology pending. Pathology Results: Result: Benign, Focal fibrosis. LEFT BREAST, NEEDLE CORE BIOPSY: Benign breast with fibrosis and focal fibroadenomatoid-like features. See note. Overall Assessment: Benign Management: Diagnostic Breast Ultrasound of the left breast in 6 months. Electronically signed and approved by: Dustin Plasencia M.D. Radiologis
== END 2022-04-07 14:23 | disposition home or self-care (01) ==
LOC: 6NMEDSUR 16:45 → INTOOBSV 16:45
PROVIDERS: ADMIT Internal Medicine; ATTEND Internal Medicine
DX: N60.32 Fibrosclerosis of left breast (principal); R92.8 Other abnormal and inconclusive findings on diagnostic imaging of breast; I48.0 Paroxysmal atrial fibrillation; I25.10 Atherosclerotic heart disease of native coronary artery without angina pectoris; I42.8 Other cardiomyopathies; E78.5 Hyperlipidemia, unspecified; Z95.2 Presence of prosthetic heart valve; I11.0 Hypertensive heart disease with heart failure; I50.9 Heart failure, unspecified; K21.9 Gastro-esophageal reflux disease without esophagitis; I25.2 Old myocardial infarction; Z86.718 Personal history of other venous thrombosis and embolism; Z95.0 Presence of cardiac pacemaker; Z95.810 Presence of automatic (implantable) cardiac defibrillator; Z90.49 Acquired absence of other specified parts of digestive tract; Z98.51 Tubal ligation status; Z82.3 Family history of stroke; Z82.49 Family history of ischemic heart disease and other diseases of the circulatory system; F17.210 Nicotine dependence, cigarettes, uncomplicated; Z82.0 Family history of epilepsy and other diseases of the nervous system; Z79.01 Long term (current) use of anticoagulants; Z79.82 Long term (current) use of aspirin; Z79.899 Other long term (current) drug therapy; Z88.0 Allergy status to penicillin; Z91.013 Allergy to seafood
CPT/HCPCS: 88305; 80053; 85025 ×2; 85610 ×3; 85730 ×3; 82272; 19083; G0379; G0378 ×3; A4648; J1650; J1644 ×4

== ENCOUNTER → 2022-07-17 | Outpatient (CLI) | payer MEDICARE, OTHER ==
[2022-07-17 11:10] VITALS: BP 97/69; PULSE 83; RESP 18; TEMP 98.6
--- NOTE | 2022-07-17 12:38 | P.PAINPG ---
PQRS Measure Charge Sheet Comment: HISTORY OF PRESENT ILLNESS: 57 yr old female as a referral from Dr. Kaplan presents today w severe and chronic LBP secondary to spondylsis, DDD and facet arthropathy without myelopathy for evaluation. Pt states her pain level is currently at 10/10 in intensity, constant, localized in lower lumbar spine, sharp/ burning/ throbbing in character w sharp pain radiating towards LLE. Pain is alleviated w PT completed in February 2022, home exercise regimen, heat, ice, medications ([place] & Baclofen by Dr Kaplan, Tylenol PM), topicals, repositioning and rest. Pain is provoked w weight bearing activities. REVIEW OF ORGAN SYSTEMS: CONSTITUTIONAL: No fevers or chills. No recent weight loss. NEUROLOGICAL: + numbness and tingling along the distal extremities. No seizure disorders or headaches. MUSCULOSKELETAL: + pain PSYCHIATRIC: Denies current depression or suicidal thoughts. Physical Examinations : Constitutional : Cooperative , not in acute distress . Neurologic : Cranial nerve II to XII intact. No focal neurological deficits. Psychiatric : alert & oriented x 3. Matching mood & appropriate affect. Judgment & insight intact. Musculoskeletal : Cervical Spine Motor strength in the deltoid and biceps: Normal right side. Normal Left side Motor strength biceps and the wrist extensors: Normal right side . Normal left side Motor strength in the triceps muscle: Normal right side. Normal left side Deep tendon reflexes: Normal at the biceps. Normal at Brachioradialis. Normal at triceps Vertebral body tenderness to deep palpation over Cervical facet loading test: positive bilaterally Spurling test: positive bilaterally Neck distraction test: positive bilaterally Wing sign: positive bilaterally Lumbar spine Motor strength lower extremities ,thigh and legs 5/5 Right side , 5/5 Left side Deep tendon reflexes : Normal Knee Jerk. Normal Ankle Jerk Vertebral body tenderness over L3, L4, L5 Lumbar facet Loading Test: positive Right / positive Left Range of motion of the lumbar spine Flexion 30 degrees, extension 10 degrees Straight Leg Raise test: Left/ Right positive at <30 degree Néstor test: positive right / positive left. Severe tenderness over the Sacroiliac joint on the Right / Left sides Gaenslen test: positive bilaterally Seated flexion test: positive bilaterally. Sacral spine : Severe tenderness over the Sacroiliac joint: right side / left side Range of motion: Flexion of the lumbar spine <60 degrees Range of motion: Extension of the lumbar spine <20 degrees Gaenslen's Test positive Ramón's Test positive Néstor test: positive right side / left side Thigh Thrust Test Sacral Thrust Test Assessment/ Plan : Lumbar DDD Recommendation of referral to Dr Kaplan. Pt is on Coumadin for a mechanical heart value. As ESIs are contraindicated while on Coumadin, pt would need medical clearance. Pt has not been medically cleared to be off of Coumadin unless she is heparinized for 5-7 days (protocol), though pt would need to be off of Heparin for 24 hrs prior to procedure. As this would require inpatient status, pt would need to be admitted by her physician. All questions answered. I have spent greater than 30 minutes on patient care today. Dr Merritt was available by phone for the evaluation of this patient. The time was used to review the medical records including relevant urine studies and Prescription history (MAPs), review of the available imaging, evaluation and examination of the patient, coordination of care with the medical staff and if applicable refe rring physicians, as well as creation of the medical record PQRS Narrative: Smoking Status Current every day smoker Hx Alcohol Use (MH) No Home Medications: Ambulatory Orders Pravastatin Sodium [Pravachol] 40 mg PO HS 03/25/15 Isosorbide Mononitrate ER [Imdur] 30 mg PO DAILY 05/02/17 hydrALAZINE HCL [Apresoline] 25 mg PO BID 11/13/17 carvediloL [Coreg] 25 mg PO BID 10/01/18 Spironolactone 50 mg PO DAILY 05/31/21 HYDROcodone/APAP 10-325MG [[place] 10-325] 1 tab PO Q8H PRN 08/23/21 Sacubitril/Valsartan [Entresto 24 mg-26 mg Tablet] 1 tab PO BID 02/27/22 Baclofen 10 mg PO HS 04/05/22 Nitroglycerin Sl Tabs [Nitrostat] 0.4 mg SL Q5M PRN 04/05/22 Enoxaparin [Lovenox] 140 mg SQ Q12HR 5 Days #10 each 04/07/22 Warfarin [Coumadin] 5 mg PO DAILY@1800 tab 04/07/22 Controlled Substance Measures - Controlled Substance Measures Is patient prescribed a controlled substance at discharge?: No
== END ==
LOC: PNWHC3 10:34
PROVIDERS: ATTEND Specialist
DX: M47.816 Spondylosis without myelopathy or radiculopathy, lumbar region (principal); Z95.2 Presence of prosthetic heart valve; Z79.01 Long term (current) use of anticoagulants; F17.200 Nicotine dependence, unspecified, uncomplicated; Z88.0 Allergy status to penicillin; Z91.013 Allergy to seafood
CPT/HCPCS: 99211